=== PATIENT | male | born 1970 | race Caucasian/White ===

== ENCOUNTER 2021-04-18 17:10 | Inpatient (IN) | payer MEDICARE, OTHER ==
[~2021-04-18] VITALS: Ht 185.4 cm; Wt 70.3 kg
[2021-04-18 18:20] LABS: BASOPHILS ABSOLUTE AUTO 0.04 K/mm3 (0.00-0.23); BASOPHILS PERCENT AUTO 0 % (0-2); EOSINOPHILS PERCENT AUTO 0 % (0-6); Hematocrit 33.5 % (37.0-53.0); Hemoglobin 11.8 g/dL (13.5-17.5); IMMATURE GRAN ABSOLUTE AUTO 0.21 K/mm3 (0.00-0.10); IMMATURE GRAN PERCENT AUTO 1 % (0-1); LYMPHOCYTES ABSOLUTE AUTO 1.32 K/mm3 (0.84-5.20); LYMPHOCYTES PERCENT AUTO 8 % (21-46); MONOCYTES PERCENT AUTO 5 % (4-13); Mean Corpuscular HGB 32.6 pg (26.0-34.0); Mean Corpuscular HGB Conc 35.2 g/dL (31.5-36.5); Mean Corpuscular Volume 93 fL (80-100); Mean Platelet Volume 10.5 fL (9.1-12.4); NEUTROPHILS ABSOLUTE AUTO 15.02 K/mm3 (1.96-9.15); NEUTROPHILS PERCENT AUTO 86 % (41-73); Platelet Count 302 K/mm3 (150-400); RDW Coefficient Variation 12.5 % (11.7-14.2); RDW Standard Deviation 42.5 fL (35.1-46.3); Red Blood Cell Count 3.62 M/mm3 (4.30-5.90); White Blood Cell Count 17.49 K/mm3 (4.00-11.30)
[2021-04-18 18:40] LABS: Albumin, Blood 4.8 g/dL (3.4-5.0); Bilirubin, Total 1.3 mg/dL (0.1-1.0); Bun/Creatinine Ratio 26.5 (12.0-20.0); Calcium, Blood 9.8 mg/dL (8.5-10.1); Creatinine, Blood 1.51 mg/dL (0.60-1.20); Globulin, Blood 4.6 g/dL (2.2-4.0); Total Protein, Blood 9.4 g/dL (6.4-8.2)
[2021-04-18] MEDS ORDERED: HUMALOG100 UNIT/1 UD (21:52)
[2021-04-18] MEDS ORDERED: LISI20 PO (22:00)
[2021-04-18] MEDS ORDERED: GABA300 PO (22:00)
[2021-04-18] MEDS ORDERED: ATOR40TA PO (22:01)
[2021-04-19 00:02] LABS: SARS-Cov-2 (COVID-19) PCR, MMC NEGATIVE (NEGATIVE)
--- NOTE | 2021-04-19 05:48 | NUR ---
END OF SHIFT REPORT: Pt still complaining of nausea. Heis coughuing and vommiting, stating that the cough are dry-heaves. Pt's BP and pulse elevated. notified. pt put on tele monitor. Atenelol given. phenegan given also per pt request stating that reglan and zofran "do not touch" his nausea. pt's BP still elevated at 157/98 and pulse 106 at 0530 likely from pt still dry heaving at the time vitals were taken.
[2021-04-19 06:05] LABS: Anion Gap 19 mmol/L (6-16); Blood Urea Nitrogen 33 mg/dL (8-24); Bun/Creatinine Ratio 26.4 (12.0-20.0); CO2, Blood 13 mmol/L (21-32); Calcium, Blood 8.4 mg/dL (8.5-10.1); Chloride, Blood 98 mmol/L (98-108); Creatinine, Blood 1.25 mg/dL (0.60-1.20); Glomerular Filtration Rate >60 (60-); Glucose, Blood 362 mg/dL (70-99); Potassium, Blood 3.9 mmol/L (3.5-5.5); Sodium, Blood 130 mmol/L (136-145)
[2021-04-19 16:20] LABS: BASOPHILS ABSOLUTE AUTO 0.02 K/mm3 (0.00-0.23); BASOPHILS PERCENT AUTO 0 % (0-2); EOSINOPHILS PERCENT AUTO 0 % (0-6); Hematocrit 26.8 % (37.0-53.0); Hemoglobin 9.2 g/dL (13.5-17.5); IMMATURE GRAN ABSOLUTE AUTO 0.07 K/mm3 (0.00-0.10); IMMATURE GRAN PERCENT AUTO 1 % (0-1); LYMPHOCYTES ABSOLUTE AUTO 1.06 K/mm3 (0.84-5.20); LYMPHOCYTES PERCENT AUTO 8 % (21-46); MONOCYTES ABSOLUTE AUTO 0.81 K/mm3 (0.16-1.47); MONOCYTES PERCENT AUTO 6 % (4-13); Mean Corpuscular HGB 32.1 pg (26.0-34.0); Mean Corpuscular HGB Conc 34.3 g/dL (31.5-36.5); Mean Corpuscular Volume 93 fL (80-100); Mean Platelet Volume 10.4 fL (9.1-12.4); NEUTROPHILS ABSOLUTE AUTO 10.88 K/mm3 (1.96-9.15); NEUTROPHILS PERCENT AUTO 85 % (41-73); Platelet Count 194 K/mm3 (150-400); RDW Coefficient Variation 12.3 % (11.7-14.2); RDW Standard Deviation 42.5 fL (35.1-46.3); Red Blood Cell Count 2.87 M/mm3 (4.30-5.90); White Blood Cell Count 12.84 K/mm3 (4.00-11.30)
[2021-04-19 16:42] LABS: Albumin, Blood 3.2 g/dL (3.4-5.0); Anion Gap 10 mmol/L (6-16); Blood Urea Nitrogen 24 mg/dL (8-24); CO2, Blood 19 mmol/L (21-32); Chloride, Blood 107 mmol/L (98-108); Creatinine, Blood 1.09 mg/dL (0.60-1.20); Glomerular Filtration Rate >60 (60-); Glucose, Blood 214 mg/dL (70-99); Phosphorus, Blood 2.3 mg/dL (2.5-4.9); Potassium, Blood 3.5 mmol/L (3.5-5.5); Sodium, Blood 136 mmol/L (136-145)
--- NOTE | 2021-04-19 16:53 | NUR ---
SHIFT SUMMARY PATIENT MEDICATED SEVERAL TIMES FOR NAUSEA THIS SHIFT. PATIENT MEDICATED X1 FOR ABDOMINAL PAIN. NEW ORDERS FOR 2 LITER BOLUS, Q4 REGULAR INSULIN AND Q4 CBG'S. UP SBA TO BSC, USES URINAL AT BEDSIDE. POOR PO INTAKE.
[2021-04-20 03:17] LABS: Source, Urine Clean Catch
[2021-04-20 03:19] LABS: Bilirubin, Urine Neg (Neg); Blood, Urine 1+ (Neg); Glucose Qualitative, Urine 3+ (Neg); Ketones, Urine 3+ (Neg); Leukocyte Esterase, Urine Neg (Neg); Nitrite, Urine Neg (Neg); Protein, Urine 2+ (Neg); Urobilinogen, Urine NORM (Normal)
[2021-04-20 03:21] LABS: Appearance, Urine Clear (Clear); Color, Urine Pale Yellow (P-Yellow)
[2021-04-20 03:37] LABS: Bacteria Not Seen /hpf; Red Blood Cells, Urine 0-2 /hpf (0-2); Squamous Epithelial Cells Not Seen /hpf (Few); White Blood Cells, Urine Rare /hpf (0-5)
--- NOTE | 2021-04-20 05:12 | NUR ---
END OF SHIFT REPORT: Pt complaining of stomach scramps, nausea and vommiting. Treated with anti nausea and pain medicine and pt feels some relief. Pt states that he had a better night toning with his pain and nausea.
--- NOTE | 2021-04-20 07:14 | NUR ---
Unable to document med: 0045: As this nurse was charting pt's zofran and fentanyl, the computer blacked out and when it came back up, it was not letting this nurse into the [facility]. This nurse tried multiple times to chart the medicine but computer says that i am already in the [facility] for these meds. This nurse notified charge nurse and pharmacy. charted the med on paper charting, which was put onto pt's chart.
[2021-04-20 08:53] LABS: Magnesium, Blood 2.1 mg/dL (1.6-2.4)
[2021-04-20 09:15] LABS: Albumin, Blood 3.4 g/dL (3.4-5.0); Anion Gap 8 mmol/L (6-16); Blood Urea Nitrogen 15 mg/dL (8-24); Bun/Creatinine Ratio 15.7 (12.0-20.0); CO2, Blood 23 mmol/L (21-32); Calcium, Blood 8.4 mg/dL (8.5-10.1); Chloride, Blood 106 mmol/L (98-108); Creatinine, Blood 0.96 mg/dL (0.60-1.20); Glomerular Filtration Rate >60 (60-); Glucose, Blood 183 mg/dL (70-99); Phosphorus, Blood 1.4 mg/dL (2.5-4.9); Potassium, Blood 3.3 mmol/L (3.5-5.5); Sodium, Blood 137 mmol/L (136-145)
[2021-04-20] MEDS ORDERED: OXYC10TA19 PO (12:03)
[2021-04-20] MEDS ORDERED: SERT100 PO (12:21)
--- NOTE | 2021-04-20 17:27 | NUR ---
SHIFT SUMMARY PATIENT MEDICATED X1 FOR PAIN. PATIENT MEDICATED X1 PRN AND SCHEDULED FOR NAUSEA. PATIENT MEDICATED X1 FOR ANXIETY. PATIENT DENIES SHORTNESS OF BREATH. PATIENT ABLE TO TOLERATE MINIMAL FOOD TODAY WITHOUT EMESIS. PATIENT BP WAS 181/116. MEDICATED WITH LABETALOL 10MG PER EMAR. AFTER AN HOUR, BP WAS 183/125. MEDICATED WITH LABETALOL 10MG PER EMAR. DR. GALO CALLED. NEW ORDERS FOR LISINOPRIL 20MG PO BID AND OXYCODONE 10MG Q6 PRN. PATIENT IS PLEASANT AND COOPERATIVE WITH CARE. PATIENT IS INDEPENDENT TO THE BATHROOM. PATIENT SLEPT ON AND OFF FOR MOST OF MY SHIFT.
--- NOTE | 2021-04-21 06:21 | NUR ---
SHIFT SUMMARY PT IS A 51 Y/O MALE, ADMITTED FOR SEVERE SEPSIS. HE IS A&O X 4, ANXIOUS AT TIMES, INDEPENDENT IN THE ROOM. HE WAS MEDICATED TWICE FOR ABD PAIN AND NAUSEA WITH PRN OXYCODONE AND ZOFRAN. NO C/O SOB. VITAL SIGNS STABLE. NO ACUTE CHANGES IN PT CONDITION NOTED DURING THE NIGHT. WILL CONTINUE TO MONITOR AND TREAT PER EMAR UNTIL HAND OFF TO DAY SHIFT RN.
[2021-04-21 09:43] LABS: Albumin, Blood 3.3 g/dL (3.4-5.0); Anion Gap 9 mmol/L (6-16); Blood Urea Nitrogen 11 mg/dL (8-24); Bun/Creatinine Ratio 11.3 (12.0-20.0); CO2, Blood 23 mmol/L (21-32); Chloride, Blood 103 mmol/L (98-108); Creatinine, Blood 0.97 mg/dL (0.60-1.20); Glomerular Filtration Rate >60 (60-); Glucose, Blood 181 mg/dL (70-99); Phosphorus, Blood 1.8 mg/dL (2.5-4.9); Potassium, Blood 3.3 mmol/L (3.5-5.5); Sodium, Blood 135 mmol/L (136-145)
--- NOTE | 2021-04-21 16:37 | NUR ---
SHIFT SUMMARY PATIENT MEDICATED FOR PAIN X1, NAUSEA X1, AND ANXIETY X1. PATIENT DENIES SHORTNESS OF BREATH. PATIENT TOLERATING FOOD TODAY. ATE ABOUT HALF OF ALL MEALS. PATIENT STATED FEELING LESS NAUSEOUS TODAY. THREE RECORD REQUEST FAXED THIS MORNING, 2 OUT OF 3 HAVE SENT RECORDS. THIS AFTERNOON, PATIENT BP WAS 167/103. DR. GALO CALLED. NEW ORDERS FOR HYDRALAZINE 10MG PO TID PLACED. NOW DOSE GIVEN. RECHECK AFTER ONE HOUR WAS 192/120. LABETALOL GIVEN. PATIENT INDEPENDENT TO BATHROOM. PATIENT IS PLEASANT AND COOPERATIVE WITH CARE.
--- NOTE | 2021-04-22 07:10 | NUR ---
PATEINT SUMMARY PATIENT IS ALERT AND ORIENTED X4. BP ELEVATED MY SHIFT PRN GIVEN; VS OTHERWISE STABLE FOR PATIENT ON RA. NO COMPLAINTS OF CABALLERO, CP, OR SHORTNESS OF BREATH. PATIENT C/O NAUSEA MY SHIFT. MEDICATIONS FOR NAUSEA ND PAIN GIVEN AROUND THE CLOCK. PATIENT VERBALIZED RELIEF. PATIENT VERBALIZED BEGINING TO FEEL BETTER. ALL MEDICATIONS GIVEN AND CARES COMPLETED ORDERED ACCORDING TO NURSING JUDGEMENT. ALL UNFINISHED CARES ENDORSED TO ONCOMING RN.
[2021-04-22 08:49] LABS: Albumin, Blood 3.4 g/dL (3.4-5.0); Anion Gap 9 mmol/L (6-16); Blood Urea Nitrogen 8 mg/dL (8-24); Bun/Creatinine Ratio 8.1 (12.0-20.0); CO2, Blood 24 mmol/L (21-32); Calcium, Blood 8.3 mg/dL (8.5-10.1); Chloride, Blood 106 mmol/L (98-108); Creatinine, Blood 0.99 mg/dL (0.60-1.20); Glomerular Filtration Rate >60 (60-); Glucose, Blood 149 mg/dL (70-99); Phosphorus, Blood 3.2 mg/dL (2.5-4.9); Potassium, Blood 3.2 mmol/L (3.5-5.5); Sodium, Blood 139 mmol/L (136-145)
--- NOTE | 2021-04-22 10:59 | NUR ---
PT IS A&O, PLEASANT AND CO-OP WITH CARE. DENIED NEEDS. NO C/O. PT UP TO CHAIR AT BS INDEPENDENTLY. ABLE TO AMBULATE IN AND TO BTHRM. DR GALO IN TO SEE PT AND DISCUSS PLAN OF CARE. MEDICAL RECORDS FROM [facility] OBTAINED AND REVIEWED BY DR GALO. D/C ORDERS PLACED. IV AND TELE MX D/C'D. PT ABLE TO DRESS HIMSELF. D/C INSTRUCTIONS TO BE GIVEN AND REVIEWED WITH PT. CALL LT IN REACH.
[2021-04-22] MEDS ORDERED: HYDR10 PO (11:09)
[2021-04-22] MEDS ORDERED: REGLAN10 M2 PO (11:11)
[2021-04-22] MEDS ORDERED: PANT40 PO (11:12)
[2021-04-22] MEDS ORDERED: ONDA4ODT MM (11:12)
--- NOTE | 2021-04-22 12:43 | NUR ---
D/C INSTRUCTIONS REVIEWED WITH PT. VERBALIZED UNDERSTANDING. DENIED FURTHER NEEDS. ASSISTED OUT TO 'S CAR VIA W/C.
== END 2021-04-22 12:44 | disposition home or self-care (01) | DRG 74 ==
LOC: ER 17:10 → MEDS 17:11
PROVIDERS: Emergency Medicine Emergency Medical Services; Internal Medicine; Student in an Organized Health Care Education/Training Program; ADMIT Internal Medicine
DX: E10.43 Type 1 diabetes mellitus with diabetic autonomic (poly)neuropathy (principal); N17.9 Acute kidney failure, unspecified; K31.84 Gastroparesis; E86.0 Dehydration; E78.5 Hyperlipidemia, unspecified; E87.6 Hypokalemia; E83.39 Other disorders of phosphorus metabolism; Z20.822 Contact with and (suspected) exposure to COVID-19; K52.9 Noninfective gastroenteritis and colitis, unspecified; I10 Essential (primary) hypertension; E10.10 Type 1 diabetes mellitus with ketoacidosis without coma; Z98.890 Other specified postprocedural states; Z79.4 Long term (current) use of insulin; Z79.899 Other long term (current) drug therapy
CPT/HCPCS: 36415; 74176; 80048; 80053; 80069; 81001; 82947; 83605; 83690; 83735; 85025; 87040; 93005; 93010; 96374; 96375; 96376; 99285-25; A9270; C1751; C9113; J0696; J1650; J1815; J2060; J2270; J2405; J2550; J2765; J3010; J7030; J7060; J7120; U0004

== ENCOUNTER → 2021-08-28 | Outpatient (CLI) | payer MEDICARE, OTHER ==
[~2021-08-28] MED LIST: ATOR40TA PO; GABA300 PO; HUMALOG100 UNIT/1 UD; HYDR10 PO; LISI20 PO; ONDA4ODT MM; OXYC10TA19 PO; PANT40 PO; REGLAN10 M2 PO; SERT100 PO
== END | disposition home or self-care (01) ==
LOC: LAB SHORT 17:22
PROVIDERS: Family Medicine
DX: Z51.81 Encounter for therapeutic drug level monitoring (principal); Z79.899 Other long term (current) drug therapy
CPT/HCPCS: G0480

== ENCOUNTER 2021-10-22 22:58 | Emergency (ER) | payer MEDICARE, OTHER ==
[~2021-10-22] VITALS: Ht 185.4 cm; Wt 72.6 kg
[2021-10-23] MEDS ORDERED: PROM12.5S (00:25)
[2021-10-23 00:39] LABS: BASOPHILS ABSOLUTE AUTO 0.06 K/mm3 (0.00-0.23); BASOPHILS PERCENT AUTO 1 % (0-2); EOSINOPHILS ABSOLUTE AUTO 0.46 K/mm3 (0.00-0.68); EOSINOPHILS PERCENT AUTO 7 % (0-6); Hematocrit 29.5 % (37.0-53.0); Hemoglobin 9.9 g/dL (13.5-17.5); IMMATURE GRAN ABSOLUTE AUTO 0.01 K/mm3 (0.00-0.10); IMMATURE GRAN PERCENT AUTO 0 % (0-1); LYMPHOCYTES ABSOLUTE AUTO 1.64 K/mm3 (0.84-5.20); LYMPHOCYTES PERCENT AUTO 26 % (21-46); MONOCYTES ABSOLUTE AUTO 0.57 K/mm3 (0.16-1.47); MONOCYTES PERCENT AUTO 9 % (4-13); Mean Corpuscular HGB 31.9 pg (26.0-34.0); Mean Corpuscular HGB Conc 33.6 g/dL (31.5-36.5); Mean Corpuscular Volume 95 fL (80-100); Mean Platelet Volume 9.6 fL (9.1-12.4); NEUTROPHILS ABSOLUTE AUTO 3.57 K/mm3 (1.96-9.15); NEUTROPHILS PERCENT AUTO 57 % (41-73); Platelet Count 226 K/mm3 (150-400); RDW Coefficient Variation 12.7 % (11.7-14.2); RDW Standard Deviation 44.2 fL (35.1-46.3); White Blood Cell Count 6.31 K/mm3 (4.00-11.30)
[2021-10-23 00:57] LABS: Albumin, Blood 3.5 g/dL (3.4-5.0); Bilirubin, Total 0.3 mg/dL (0.1-1.0); Bun/Creatinine Ratio 19.2 (12.0-20.0); Calcium, Blood 8.5 mg/dL (8.5-10.1); Creatinine, Blood 1.3 mg/dL (0.60-1.20); Globulin, Blood 3.6 g/dL (2.2-4.0); Potassium, Blood 4.6 mmol/L (3.5-5.5); Total Protein, Blood 7.1 g/dL (6.4-8.2)
[2021-10-23] MEDS ORDERED: Cleocin HCl150 MG PO (03:33)
== END 2021-10-23 04:10 | disposition home or self-care (01) ==
LOC: ER 22:58
PROVIDERS: Student in an Organized Health Care Education/Training Program
DX: L03.031 Cellulitis of right toe (principal); E10.40 Type 1 diabetes mellitus with diabetic neuropathy, unspecified; I10 Essential (primary) hypertension; Z88.5 Allergy status to narcotic agent; Z79.899 Other long term (current) drug therapy; Z79.4 Long term (current) use of insulin
CPT/HCPCS: 73630; 80053; 85025; 99283-25; A9270

== ENCOUNTER 2021-11-14 11:28 | Inpatient (IN) | payer MEDICARE, OTHER ==
[~2021-11-14] VITALS: Ht 185.4 cm; Wt 68.5 kg
[~2021-11-14 11:28] MED LIST changes: +Cleocin HCl150 MG PO; -GABA300 PO; +GABA600 PO; -HUMALOG100 UNIT/1 UD; +PHENERGAN25 MG PR; +[UNRECOGNIZED DRUG - OTHER] UD
[2021-11-14 12:06] LABS: BASOPHILS ABSOLUTE AUTO 0.06 K/mm3 (0.00-0.23); BASOPHILS PERCENT AUTO 1 % (0-2); EOSINOPHILS ABSOLUTE AUTO 0.01 K/mm3 (0.00-0.68); EOSINOPHILS PERCENT AUTO 0 % (0-6); Hemoglobin 12.2 g/dL (13.5-17.5); IMMATURE GRAN ABSOLUTE AUTO 0.05 K/mm3 (0.00-0.10); IMMATURE GRAN PERCENT AUTO 0 % (0-1); LYMPHOCYTES ABSOLUTE AUTO 0.76 K/mm3 (0.84-5.20); LYMPHOCYTES PERCENT AUTO 6 % (21-46); MONOCYTES ABSOLUTE AUTO 0.67 K/mm3 (0.16-1.47); MONOCYTES PERCENT AUTO 5 % (4-13); Mean Corpuscular HGB 31.4 pg (26.0-34.0); Mean Corpuscular HGB Conc 33.9 g/dL (31.5-36.5); Mean Corpuscular Volume 93 fL (80-100); NEUTROPHILS ABSOLUTE AUTO 11.55 K/mm3 (1.96-9.15); NEUTROPHILS PERCENT AUTO 88 % (41-73); Platelet Count 297 K/mm3 (150-400); RDW Coefficient Variation 12.4 % (11.7-14.2); RDW Standard Deviation 41.9 fL (35.1-46.3); Red Blood Cell Count 3.89 M/mm3 (4.30-5.90)
[2021-11-14 12:20] LABS: Alanine Aminotransfer (ALT/SGP 23 U/L (12-78); Albumin, Blood 4.5 g/dL (3.4-5.0); Alk Phos 69 U/L (50-136); Anion Gap 12 mmol/L (6-16); Aspartate Aminotrans (AST/SGOT 19 U/L (12-37); Bilirubin, Total 1.3 mg/dL (0.1-1.0); Blood Urea Nitrogen 19 mg/dL (8-24); Bun/Creatinine Ratio 18.6 (12.0-20.0); CO2, Blood 20 mmol/L (21-32); Calcium, Blood 10.2 mg/dL (8.5-10.1); Chloride, Blood 107 mmol/L (98-108); Creatinine, Blood 1.02 mg/dL (0.60-1.20); Globulin, Blood 4.6 g/dL (2.2-4.0); Glomerular Filtration Rate >60 (60-); Glucose, Blood 283 mg/dL (70-99); Potassium, Blood 3.8 mmol/L (3.5-5.5); Sodium, Blood 139 mmol/L (136-145); Total Protein, Blood 9.1 g/dL (6.4-8.2)
[2021-11-14] MEDS ORDERED: LISI20 PO (12:43)
[2021-11-14 12:59] LABS: Base Excess Venous -1.5 mmol/L; Bicarbonate Venous 24.5 mmol/L (24.0-30.0); PCO2 Venous 20.4 mmHg (38-42)
[2021-11-14 17:57] LABS: Anion Gap 9 mmol/L (6-16); Beta-hydroxybutyrate 15.8 mg/dL (0.2-2.8); Blood Urea Nitrogen 19 mg/dL (8-24); Bun/Creatinine Ratio 21.6 (12.0-20.0); CO2, Blood 21 mmol/L (21-32); Chloride, Blood 107 mmol/L (98-108); Creatinine, Blood 0.88 mg/dL (0.60-1.20); Glomerular Filtration Rate >60 (60-); Glucose, Blood 238 mg/dL (70-99); Potassium, Blood 3.7 mmol/L (3.5-5.5); Sodium, Blood 137 mmol/L (136-145)
[2021-11-14 22:27] LABS: Influenza A, PCR NEGATIVE (NEGATIVE); Influenza B, PCR NEGATIVE (NEGATIVE); Resp Syncytial Virus, PCR NEGATIVE (NEGATIVE); SARS-Cov-2 (COVID-19) PCR, MMC NEGATIVE (NEGATIVE)
[2021-11-15 03:51] LABS: BASOPHILS ABSOLUTE AUTO 0.02 K/mm3 (0.00-0.23); BASOPHILS PERCENT AUTO 0 % (0-2); EOSINOPHILS PERCENT AUTO 0 % (0-6); Hematocrit 32.9 % (37.0-53.0); Hemoglobin 11.3 g/dL (13.5-17.5); IMMATURE GRAN ABSOLUTE AUTO 0.06 K/mm3 (0.00-0.10); IMMATURE GRAN PERCENT AUTO 0 % (0-1); LYMPHOCYTES ABSOLUTE AUTO 1.03 K/mm3 (0.84-5.20); LYMPHOCYTES PERCENT AUTO 7 % (21-46); MONOCYTES ABSOLUTE AUTO 0.77 K/mm3 (0.16-1.47); MONOCYTES PERCENT AUTO 5 % (4-13); Mean Corpuscular HGB 31.6 pg (26.0-34.0); Mean Corpuscular HGB Conc 34.3 g/dL (31.5-36.5); Mean Corpuscular Volume 92 fL (80-100); Mean Platelet Volume 9.7 fL (9.1-12.4); NEUTROPHILS ABSOLUTE AUTO 13.46 K/mm3 (1.96-9.15); NEUTROPHILS PERCENT AUTO 88 % (41-73); Platelet Count 267 K/mm3 (150-400); RDW Coefficient Variation 12.6 % (11.7-14.2); RDW Standard Deviation 42.6 fL (35.1-46.3); Red Blood Cell Count 3.58 M/mm3 (4.30-5.90); White Blood Cell Count 15.34 K/mm3 (4.00-11.30)
[2021-11-15 04:07] LABS: Albumin, Blood 4.1 g/dL (3.4-5.0); Anion Gap 16 mmol/L (6-16); Blood Urea Nitrogen 20 mg/dL (8-24); Bun/Creatinine Ratio 20.3 (12.0-20.0); CO2, Blood 15 mmol/L (21-32); Calcium, Blood 8.9 mg/dL (8.5-10.1); Chloride, Blood 102 mmol/L (98-108); Creatinine, Blood 0.99 mg/dL (0.60-1.20); Glomerular Filtration Rate >60 (60-); Glucose, Blood 211 mg/dL (70-99); Phosphorus, Blood 2.4 mg/dL (2.5-4.9); Potassium, Blood 3.4 mmol/L (3.5-5.5); Sodium, Blood 133 mmol/L (136-145)
[2021-11-16 10:38] LABS: BASOPHILS ABSOLUTE AUTO 0.02 K/mm3 (0.00-0.23); BASOPHILS PERCENT AUTO 0 % (0-2); EOSINOPHILS PERCENT AUTO 0 % (0-6); Hematocrit 29.6 % (37.0-53.0); Hemoglobin 10.2 g/dL (13.5-17.5); IMMATURE GRAN ABSOLUTE AUTO 0.09 K/mm3 (0.00-0.10); IMMATURE GRAN PERCENT AUTO 1 % (0-1); LYMPHOCYTES ABSOLUTE AUTO 1.06 K/mm3 (0.84-5.20); LYMPHOCYTES PERCENT AUTO 6 % (21-46); MONOCYTES ABSOLUTE AUTO 1.07 K/mm3 (0.16-1.47); MONOCYTES PERCENT AUTO 6 % (4-13); Mean Corpuscular HGB 31.6 pg (26.0-34.0); Mean Corpuscular HGB Conc 34.5 g/dL (31.5-36.5); Mean Corpuscular Volume 92 fL (80-100); Mean Platelet Volume 10.4 fL (9.1-12.4); NEUTROPHILS ABSOLUTE AUTO 14.36 K/mm3 (1.96-9.15); NEUTROPHILS PERCENT AUTO 87 % (41-73); Platelet Count 213 K/mm3 (150-400); RDW Coefficient Variation 12.8 % (11.7-14.2); RDW Standard Deviation 42.7 fL (35.1-46.3); Red Blood Cell Count 3.23 M/mm3 (4.30-5.90)
[2021-11-16 10:47] LABS: Anion Gap 13 mmol/L (6-16); Blood Urea Nitrogen 21 mg/dL (8-24); CO2, Blood 19 mmol/L (21-32); Calcium, Blood 8.1 mg/dL (8.5-10.1); Chloride, Blood 104 mmol/L (98-108); Creatinine, Blood 0.96 mg/dL (0.60-1.20); Glomerular Filtration Rate >60 (60-); Glucose, Blood 205 mg/dL (70-99); Potassium, Blood 4.2 mmol/L (3.5-5.5); Sodium, Blood 136 mmol/L (136-145)
[2021-11-17 06:07] LABS: BASOPHILS ABSOLUTE AUTO 0.01 K/mm3 (0.00-0.23); BASOPHILS PERCENT AUTO 0 % (0-2); EOSINOPHILS PERCENT AUTO 0 % (0-6); Hematocrit 29.5 % (37.0-53.0); Hemoglobin 10.2 g/dL (13.5-17.5); IMMATURE GRAN ABSOLUTE AUTO 0.13 K/mm3 (0.00-0.10); IMMATURE GRAN PERCENT AUTO 1 % (0-1); LYMPHOCYTES ABSOLUTE AUTO 0.48 K/mm3 (0.84-5.20); LYMPHOCYTES PERCENT AUTO 3 % (21-46); MONOCYTES ABSOLUTE AUTO 0.72 K/mm3 (0.16-1.47); MONOCYTES PERCENT AUTO 5 % (4-13); Mean Corpuscular HGB Conc 34.6 g/dL (31.5-36.5); Mean Corpuscular Volume 93 fL (80-100); Mean Platelet Volume 10.4 fL (9.1-12.4); NEUTROPHILS ABSOLUTE AUTO 12.72 K/mm3 (1.96-9.15); NEUTROPHILS PERCENT AUTO 91 % (41-73); Platelet Count 194 K/mm3 (150-400); RDW Coefficient Variation 12.7 % (11.7-14.2); RDW Standard Deviation 43.3 fL (35.1-46.3); Red Blood Cell Count 3.19 M/mm3 (4.30-5.90); White Blood Cell Count 14.06 K/mm3 (4.00-11.30)
[2021-11-17 06:33] LABS: Anion Gap 16 mmol/L (6-16); Blood Urea Nitrogen 23 mg/dL (8-24); Bun/Creatinine Ratio 23.1 (12.0-20.0); CO2, Blood 15 mmol/L (21-32); Calcium, Blood 8.5 mg/dL (8.5-10.1); Chloride, Blood 105 mmol/L (98-108); Glomerular Filtration Rate >60 (60-); Glucose, Blood 394 mg/dL (70-99); Sodium, Blood 136 mmol/L (136-145)
[2021-11-17 10:04] LABS: BASOPHILS ABSOLUTE AUTO 0.01 K/mm3 (0.00-0.23); BASOPHILS PERCENT AUTO 0 % (0-2); EOSINOPHILS PERCENT AUTO 0 % (0-6); Hematocrit 27.4 % (37.0-53.0); Hemoglobin 9.4 g/dL (13.5-17.5); IMMATURE GRAN ABSOLUTE AUTO 0.05 K/mm3 (0.00-0.10); IMMATURE GRAN PERCENT AUTO 0 % (0-1); LYMPHOCYTES PERCENT AUTO 4 % (21-46); MONOCYTES PERCENT AUTO 7 % (4-13); Mean Corpuscular HGB 31.8 pg (26.0-34.0); Mean Corpuscular HGB Conc 34.3 g/dL (31.5-36.5); Mean Corpuscular Volume 93 fL (80-100); Mean Platelet Volume 10.3 fL (9.1-12.4); NEUTROPHILS ABSOLUTE AUTO 10.47 K/mm3 (1.96-9.15); NEUTROPHILS PERCENT AUTO 89 % (41-73); Platelet Count 191 K/mm3 (150-400); RDW Coefficient Variation 12.6 % (11.7-14.2); RDW Standard Deviation 42.8 fL (35.1-46.3); Red Blood Cell Count 2.96 M/mm3 (4.30-5.90); White Blood Cell Count 11.83 K/mm3 (4.00-11.30)
[2021-11-17 10:27] LABS: Anion Gap 10 mmol/L (6-16); Blood Urea Nitrogen 22 mg/dL (8-24); CO2, Blood 22 mmol/L (21-32); Calcium, Blood 8.3 mg/dL (8.5-10.1); Chloride, Blood 108 mmol/L (98-108); Creatinine, Blood 0.92 mg/dL (0.60-1.20); Glomerular Filtration Rate >60 (60-); Glucose, Blood 227 mg/dL (70-99); Sodium, Blood 140 mmol/L (136-145)
[2021-11-17 12:37] LABS: Campylobacter Sp Not Detected (NOT DETECT)
[2021-11-17 12:38] LABS: Adenovirus F 40/41 Not Detected (NOT DETECT); Astrovirus Not Detected (NOT DETECT); Cryptosporidium Not Detected (NOT DETECT); Cyclospora Cayetanensis Not Detected (NOT DETECT); E. Coli O157 Not Detected (NOT DETECT); Entamoeba Histolytica Not Detected (NOT DETECT); Enteroaggregative E. coli-EAEC Not Detected (NOT DETECT); Enteropathogenic E. coli-EPEC Not Detected (NOT DETECT); Enterotoxigenic E. coli-ETEC Not Detected (NOT DETECT); Giardia Lamblia Not Detected (NOT DETECT); Norovirus GI/GII Not Detected (NOT DETECT); Plesiomonas Shigelloides Not Detected (NOT DETECT); Rotavirus A Not Detected (NOT DETECT); Salmonella Sp Not Detected (NOT DETECT); Sapovirus Not Detected (NOT DETECT); Shiga Toxin-prod E. coli-STEC Not Detected (NOT DETECT); Shigella/Enteroin E. coli-EIEC Not Detected (NOT DETECT); Vibrio Cholerae Not Detected (NOT DETECT); Vibrio Sp Not Detected (NOT DETECT); Yersinia Enterocolitica Not Detected (NOT DETECT)
[2021-11-17 18:00] LABS: Source, Urine Clean Catch
[2021-11-17 18:08] LABS: Appearance, Urine Clear (Clear); Bilirubin, Urine Neg (Neg); Blood, Urine 2+ (Neg); Color, Urine Yellow (P-Yellow); Glucose Qualitative, Urine 4+ (Neg); Ketones, Urine 4+ (Neg); Leukocyte Esterase, Urine Neg (Neg); Nitrite, Urine Neg (Neg); Protein, Urine 3+ (Neg); Urobilinogen, Urine NORM (Normal)
[2021-11-17 18:28] LABS: White Blood Cells, Urine 0-2 /hpf (0-5)
[2021-11-17 18:29] LABS: Bacteria Rare /hpf; Granular Casts 0-2 /lpf (0); Squamous Epithelial Cells Rare /hpf (Few)
[2021-11-18 05:54] LABS: BASOPHILS ABSOLUTE AUTO 0.01 K/mm3 (0.00-0.23); BASOPHILS PERCENT AUTO 0 % (0-2); EOSINOPHILS ABSOLUTE AUTO 0.03 K/mm3 (0.00-0.68); EOSINOPHILS PERCENT AUTO 0 % (0-6); Hematocrit 27.8 % (37.0-53.0); Hemoglobin 9.5 g/dL (13.5-17.5); IMMATURE GRAN ABSOLUTE AUTO 0.04 K/mm3 (0.00-0.10); IMMATURE GRAN PERCENT AUTO 0 % (0-1); LYMPHOCYTES PERCENT AUTO 10 % (21-46); MONOCYTES ABSOLUTE AUTO 0.87 K/mm3 (0.16-1.47); MONOCYTES PERCENT AUTO 8 % (4-13); Mean Corpuscular HGB 31.6 pg (26.0-34.0); Mean Corpuscular HGB Conc 34.2 g/dL (31.5-36.5); Mean Corpuscular Volume 92 fL (80-100); Mean Platelet Volume 10.7 fL (9.1-12.4); NEUTROPHILS ABSOLUTE AUTO 9.18 K/mm3 (1.96-9.15); NEUTROPHILS PERCENT AUTO 82 % (41-73); Platelet Count 204 K/mm3 (150-400); RDW Coefficient Variation 12.4 % (11.7-14.2); RDW Standard Deviation 42.4 fL (35.1-46.3); Red Blood Cell Count 3.01 M/mm3 (4.30-5.90); White Blood Cell Count 11.23 K/mm3 (4.00-11.30)
[2021-11-18 06:11] LABS: Anion Gap 8 mmol/L (6-16); Blood Urea Nitrogen 16 mg/dL (8-24); Bun/Creatinine Ratio 16.8 (12.0-20.0); CO2, Blood 23 mmol/L (21-32); Calcium, Blood 8.1 mg/dL (8.5-10.1); Chloride, Blood 104 mmol/L (98-108); Creatinine, Blood 0.95 mg/dL (0.60-1.20); Glomerular Filtration Rate >60 (60-); Glucose, Blood 241 mg/dL (70-99); Potassium, Blood 3.2 mmol/L (3.5-5.5); Sodium, Blood 135 mmol/L (136-145)
[2021-11-18 17:31] LABS: Vancomycin, Trough 20.1 ug/mL (5.0-10.0)
[2021-11-19 04:49] LABS: BASOPHILS ABSOLUTE AUTO 0.02 K/mm3 (0.00-0.23); BASOPHILS PERCENT AUTO 0 % (0-2); EOSINOPHILS PERCENT AUTO 0 % (0-6); Hematocrit 26.9 % (37.0-53.0); Hemoglobin 9.4 g/dL (13.5-17.5); IMMATURE GRAN ABSOLUTE AUTO 0.04 K/mm3 (0.00-0.10); IMMATURE GRAN PERCENT AUTO 0 % (0-1); LYMPHOCYTES ABSOLUTE AUTO 1.13 K/mm3 (0.84-5.20); LYMPHOCYTES PERCENT AUTO 9 % (21-46); MONOCYTES ABSOLUTE AUTO 1.24 K/mm3 (0.16-1.47); MONOCYTES PERCENT AUTO 10 % (4-13); Mean Corpuscular HGB 31.4 pg (26.0-34.0); Mean Corpuscular HGB Conc 34.9 g/dL (31.5-36.5); Mean Corpuscular Volume 90 fL (80-100); Mean Platelet Volume 10.5 fL (9.1-12.4); NEUTROPHILS ABSOLUTE AUTO 9.91 K/mm3 (1.96-9.15); NEUTROPHILS PERCENT AUTO 80 % (41-73); Platelet Count 199 K/mm3 (150-400); RDW Coefficient Variation 11.9 % (11.7-14.2); RDW Standard Deviation 39.6 fL (35.1-46.3); Red Blood Cell Count 2.99 M/mm3 (4.30-5.90); White Blood Cell Count 12.34 K/mm3 (4.00-11.30)
[2021-11-19 05:13] LABS: Anion Gap 15 mmol/L (6-16); Blood Urea Nitrogen 12 mg/dL (8-24); Bun/Creatinine Ratio 13.1 (12.0-20.0); CO2, Blood 19 mmol/L (21-32); Calcium, Blood 8.3 mg/dL (8.5-10.1); Chloride, Blood 100 mmol/L (98-108); Creatinine, Blood 0.92 mg/dL (0.60-1.20); Glomerular Filtration Rate >60 (60-); Glucose, Blood 250 mg/dL (70-99); Magnesium, Blood 1.4 mg/dL (1.6-2.4); Potassium, Blood 2.9 mmol/L (3.5-5.5); Sodium, Blood 134 mmol/L (136-145)
[2021-11-20 06:29] LABS: BASOPHILS ABSOLUTE AUTO 0.01 K/mm3 (0.00-0.23); BASOPHILS PERCENT AUTO 0 % (0-2); EOSINOPHILS ABSOLUTE AUTO 0.09 K/mm3 (0.00-0.68); EOSINOPHILS PERCENT AUTO 1 % (0-6); Hematocrit 24.8 % (37.0-53.0); Hemoglobin 8.5 g/dL (13.5-17.5); IMMATURE GRAN ABSOLUTE AUTO 0.04 K/mm3 (0.00-0.10); IMMATURE GRAN PERCENT AUTO 1 % (0-1); LYMPHOCYTES ABSOLUTE AUTO 0.82 K/mm3 (0.84-5.20); LYMPHOCYTES PERCENT AUTO 10 % (21-46); MONOCYTES ABSOLUTE AUTO 0.75 K/mm3 (0.16-1.47); MONOCYTES PERCENT AUTO 10 % (4-13); Mean Corpuscular HGB 31.5 pg (26.0-34.0); Mean Corpuscular HGB Conc 34.3 g/dL (31.5-36.5); Mean Corpuscular Volume 92 fL (80-100); Mean Platelet Volume 10.2 fL (9.1-12.4); NEUTROPHILS PERCENT AUTO 78 % (41-73); Platelet Count 208 K/mm3 (150-400); RDW Coefficient Variation 12.4 % (11.7-14.2); RDW Standard Deviation 41.7 fL (35.1-46.3); White Blood Cell Count 7.91 K/mm3 (4.00-11.30)
[2021-11-20 06:48] LABS: Anion Gap 6 mmol/L (6-16); Blood Urea Nitrogen 10 mg/dL (8-24); Bun/Creatinine Ratio 11.9 (12.0-20.0); CO2, Blood 26 mmol/L (21-32); Calcium, Blood 7.8 mg/dL (8.5-10.1); Chloride, Blood 105 mmol/L (98-108); Creatinine, Blood 0.84 mg/dL (0.60-1.20); Glomerular Filtration Rate >60 (60-); Glucose, Blood 238 mg/dL (70-99); Potassium, Blood 2.9 mmol/L (3.5-5.5); Sodium, Blood 137 mmol/L (136-145)
[2021-11-21 05:33] LABS: BASOPHILS ABSOLUTE AUTO 0.01 K/mm3 (0.00-0.23); BASOPHILS PERCENT AUTO 0 % (0-2); EOSINOPHILS ABSOLUTE AUTO 0.16 K/mm3 (0.00-0.68); EOSINOPHILS PERCENT AUTO 2 % (0-6); Hematocrit 24.5 % (37.0-53.0); Hemoglobin 8.4 g/dL (13.5-17.5); IMMATURE GRAN ABSOLUTE AUTO 0.03 K/mm3 (0.00-0.10); IMMATURE GRAN PERCENT AUTO 0 % (0-1); LYMPHOCYTES ABSOLUTE AUTO 1.13 K/mm3 (0.84-5.20); LYMPHOCYTES PERCENT AUTO 15 % (21-46); MONOCYTES ABSOLUTE AUTO 0.79 K/mm3 (0.16-1.47); MONOCYTES PERCENT AUTO 10 % (4-13); Mean Corpuscular HGB 31.3 pg (26.0-34.0); Mean Corpuscular HGB Conc 34.3 g/dL (31.5-36.5); Mean Corpuscular Volume 91 fL (80-100); Mean Platelet Volume 9.7 fL (9.1-12.4); NEUTROPHILS ABSOLUTE AUTO 5.67 K/mm3 (1.96-9.15); NEUTROPHILS PERCENT AUTO 73 % (41-73); Platelet Count 235 K/mm3 (150-400); RDW Coefficient Variation 12.2 % (11.7-14.2); RDW Standard Deviation 41.1 fL (35.1-46.3); Red Blood Cell Count 2.68 M/mm3 (4.30-5.90); White Blood Cell Count 7.79 K/mm3 (4.00-11.30)
[2021-11-21 05:59] LABS: Anion Gap 7 mmol/L (6-16); Blood Urea Nitrogen 7 mg/dL (8-24); Bun/Creatinine Ratio 8.8 (12.0-20.0); CO2, Blood 25 mmol/L (21-32); Calcium, Blood 8.3 mg/dL (8.5-10.1); Chloride, Blood 105 mmol/L (98-108); Creatinine, Blood 0.79 mg/dL (0.60-1.20); Glomerular Filtration Rate >60 (60-); Glucose, Blood 161 mg/dL (70-99); Potassium, Blood 2.8 mmol/L (3.5-5.5); Sodium, Blood 137 mmol/L (136-145)
[2021-11-21 11:45] LABS: Anion Gap 12 mmol/L (6-16); Blood Urea Nitrogen 9 mg/dL (8-24); Bun/Creatinine Ratio 10.8 (12.0-20.0); CO2, Blood 22 mmol/L (21-32); Calcium, Blood 8.7 mg/dL (8.5-10.1); Chloride, Blood 102 mmol/L (98-108); Creatinine, Blood 0.84 mg/dL (0.60-1.20); Glomerular Filtration Rate >60 (60-); Glucose, Blood 197 mg/dL (70-99); Potassium, Blood 3.1 mmol/L (3.5-5.5); Sodium, Blood 136 mmol/L (136-145)
[2021-11-21] MEDS ORDERED: LISI20 PO (13:33)
[2021-11-21] MEDS ORDERED: Klor-Con-Ef 2525 MEQ PO (14:31)
== END 2021-11-21 17:23 | disposition home or self-care (01) | DRG 74 ==
LOC: ER 11:28 → MEDS 21:19 → ER 21:35 → MEDS 21:35
PROVIDERS: Emergency Medicine; Family Medicine; Internal Medicine; Internal Medicine Gastroenterology; Pharmacist; ADMIT Family Medicine
PROC: 0DBE8ZX Excision of Large Intestine, Via Natural or Artificial Opening Endoscopic, Diagnostic (ICD-10-PCS; principal; 2021-11-19 10:00)
PROC: 0DB98ZX Excision of Duodenum, Via Natural or Artificial Opening Endoscopic, Diagnostic (ICD-10-PCS; 2021-11-20)
PROC: 0DB88ZX Excision of Small Intestine, Via Natural or Artificial Opening Endoscopic, Diagnostic (ICD-10-PCS; 2021-11-20)
PROC: 0DB68ZX Excision of Stomach, Via Natural or Artificial Opening Endoscopic, Diagnostic (ICD-10-PCS; 2021-11-20)
DX: E10.43 Type 1 diabetes mellitus with diabetic autonomic (poly)neuropathy (principal); E87.3 Alkalosis; E87.2 Acidosis; Z20.822 Contact with and (suspected) exposure to COVID-19; E87.6 Hypokalemia; E88.89 Other specified metabolic disorders; K31.84 Gastroparesis; E10.42 Type 1 diabetes mellitus with diabetic polyneuropathy; I10 Essential (primary) hypertension; D53.9 Nutritional anemia, unspecified; E78.5 Hyperlipidemia, unspecified; F32.A Depression, unspecified; Z88.5 Allergy status to narcotic agent; Z88.8 Allergy status to other drugs, medicaments and biological substances; Z79.4 Long term (current) use of insulin; Z79.899 Other long term (current) drug therapy; Z98.890 Other specified postprocedural states
CPT/HCPCS: 0241U; 36415; 71046; 74160; 80048; 80053; 80069; 80202; 81001; 82010; 82803; 82947; 83605; 83690; 83735; 83993; 84145; 84484; 85025; 85651; 86141; 87040; 87086; 87507; 88305; 88342; 93005; 93010; 96374; 96375; 96376; 99285-25; A9270; C1751; C9113; J0360; J0692; J0696; J0780; J1170; J1200; J1650; J1790; J1815; J2250; J2405; J2550; J2704; J3370; J3480; J7030; J7042; J7050; J7120; Q9967

== ENCOUNTER 2021-11-23 11:15 | Inpatient (IN) | payer MEDICARE, OTHER ==
[~2021-11-23] VITALS: Ht 185.4 cm; Wt 70.7 kg
[~2021-11-23 11:15] MED LIST changes: +Klor-Con-Ef 2525 MEQ PO
[2021-11-23 12:13] LABS: BASOPHILS ABSOLUTE AUTO 0.03 K/mm3 (0.00-0.23); BASOPHILS PERCENT AUTO 0 % (0-2); EOSINOPHILS ABSOLUTE AUTO 0.05 K/mm3 (0.00-0.68); EOSINOPHILS PERCENT AUTO 0 % (0-6); Hematocrit 26.8 % (37.0-53.0); Hemoglobin 9.3 g/dL (13.5-17.5); IMMATURE GRAN ABSOLUTE AUTO 0.05 K/mm3 (0.00-0.10); IMMATURE GRAN PERCENT AUTO 0 % (0-1); LYMPHOCYTES ABSOLUTE AUTO 0.99 K/mm3 (0.84-5.20); LYMPHOCYTES PERCENT AUTO 8 % (21-46); MONOCYTES ABSOLUTE AUTO 0.57 K/mm3 (0.16-1.47); MONOCYTES PERCENT AUTO 5 % (4-13); Mean Corpuscular HGB 31.4 pg (26.0-34.0); Mean Corpuscular HGB Conc 34.7 g/dL (31.5-36.5); Mean Corpuscular Volume 91 fL (80-100); Mean Platelet Volume 9.3 fL (9.1-12.4); NEUTROPHILS ABSOLUTE AUTO 10.31 K/mm3 (1.96-9.15); NEUTROPHILS PERCENT AUTO 86 % (41-73); Platelet Count 423 K/mm3 (150-400); RDW Coefficient Variation 12.3 % (11.7-14.2); RDW Standard Deviation 40.2 fL (35.1-46.3); Red Blood Cell Count 2.96 M/mm3 (4.30-5.90)
[2021-11-23 12:19] LABS: Alanine Aminotransfer (ALT/SGP 17 U/L (12-78); Albumin/Globulin Ratio 0.7 (0.8-1.8); Alk Phos 49 U/L (50-136); Anion Gap 11 mmol/L (6-16); Aspartate Aminotrans (AST/SGOT 15 U/L (12-37); Bilirubin, Total 0.7 mg/dL (0.1-1.0); Blood Urea Nitrogen 7 mg/dL (8-24); Bun/Creatinine Ratio 7.5 (12.0-20.0); CO2, Blood 22 mmol/L (21-32); Calcium, Blood 8.5 mg/dL (8.5-10.1); Chloride, Blood 101 mmol/L (98-108); Creatinine, Blood 0.94 mg/dL (0.60-1.20); Globulin, Blood 4.4 g/dL (2.2-4.0); Glomerular Filtration Rate >60 (60-); Glucose, Blood 160 mg/dL (70-99); Potassium, Blood 3.4 mmol/L (3.5-5.5); Sodium, Blood 134 mmol/L (136-145); Total Protein, Blood 7.4 g/dL (6.4-8.2)
[2021-11-23 13:30] LABS: Bicarbonate Venous 23.3 mmol/L (24.0-30.0); PCO2 Venous 21.3 mmHg (38-42); PO2 Venous 188 mmHg (38-42); pH Blood Venous 7.58 (7.34-7.37)
[2021-11-23 13:31] LABS: Base Excess Venous -2.3 mmol/L
[2021-11-23 15:17] LABS: Source, Urine Clean Catch
[2021-11-23 16:00] LABS: Appearance, Urine Clear (Clear); Bilirubin, Urine Neg (Neg); Blood, Urine 1+ (Neg); Glucose Qualitative, Urine Neg (Neg); Ketones, Urine 3+ (Neg); Leukocyte Esterase, Urine Neg (Neg); Nitrite, Urine Neg (Neg); Protein, Urine 2+ (Neg); Specific Gravity, Urine 1.005 (1.003-1.022); Urobilinogen, Urine NORM (Normal)
[2021-11-23 16:24] LABS: Color, Urine Pale Yellow (P-Yellow)
[2021-11-23 16:25] LABS: Bacteria Rare /hpf; Red Blood Cells, Urine 0-2 /hpf (0-2); Squamous Epithelial Cells Rare /hpf (Few); White Blood Cells, Urine 0-2 /hpf (0-5)
[2021-11-23 22:27] LABS: Anion Gap 9 mmol/L (6-16); Blood Urea Nitrogen 6 mg/dL (8-24); Bun/Creatinine Ratio 6.8 (12.0-20.0); CO2, Blood 22 mmol/L (21-32); Chloride, Blood 104 mmol/L (98-108); Creatinine, Blood 0.89 mg/dL (0.60-1.20); Glomerular Filtration Rate >60 (60-); Glucose, Blood 186 mg/dL (70-99); Magnesium, Blood 2.4 mg/dL (1.6-2.4); Sodium, Blood 135 mmol/L (136-145)
--- NOTE | 2021-11-24 02:48 | NUR ---
PATIENT IS A NEW ADMIT FROM THE ED. AXO X 4 SELF TRANSFER FROM [facility] TO BED. NS INFUSING FROM THE ED. ON ROOM AIR. DENIES CHEST PAIN, SOB, AND N/V. REPORTING CRAMPING IN ABDOMEN. TELEMETRY PLACED AND TECH REPORTS NSR 85 WITH QTc .56. REPORTS HAD EGD AND COLONOSCOPY ON THE AND A FEW DAYS AGO WITH DR KITCHEN. MILD HYPERTENSION 167/99. REPORTS HE HAS A GASTRIC PUMP, INSULIN PUMP, AND GLUCOSE IMPLANT METER. LIVES IN [place] WITH SPOUSE AND TWO CHILDREN. NS INFUSING AT 75mL/HR. WCTM
[2021-11-24 04:56] LABS: Hematocrit 23.4 % (37.0-53.0); Hemoglobin 8.2 g/dL (13.5-17.5); Mean Corpuscular HGB 32.2 pg (26.0-34.0); Mean Corpuscular Volume 92 fL (80-100); Mean Platelet Volume 9.3 fL (9.1-12.4); Platelet Count 347 K/mm3 (150-400); RDW Coefficient Variation 12.4 % (11.7-14.2); RDW Standard Deviation 41.6 fL (35.1-46.3); Red Blood Cell Count 2.55 M/mm3 (4.30-5.90); White Blood Cell Count 8.03 K/mm3 (4.00-11.30)
[2021-11-24 05:19] LABS: Anion Gap 7 mmol/L (6-16); Blood Urea Nitrogen 4 mg/dL (8-24); CO2, Blood 23 mmol/L (21-32); Calcium, Blood 7.7 mg/dL (8.5-10.1); Chloride, Blood 105 mmol/L (98-108); Creatinine, Blood 0.79 mg/dL (0.60-1.20); Glomerular Filtration Rate >60 (60-); Glucose, Blood 207 mg/dL (70-99); Potassium, Blood 3.4 mmol/L (3.5-5.5); Sodium, Blood 135 mmol/L (136-145)
--- NOTE | 2021-11-24 21:02 | NUR ---
SHIFT SUMMARY- PT ALERT, ORIENTED AND INDEPENDENT IN THE ROOM. IVF RUNNING AT 75ML/HR PT SEEMS TO BE MUCH BETTER THIS EVENING COMPARED TO THIS MORNING, HE STATED DURRING SHIFT REPORT HE HAD JUST HAD A BM. PAIN SEEMS TO BE WELL MANAGED WITH THE IV DILAUDID, AND THE MARINOL SEEMS TO BE HELPING WITH THE NAUSEA, PT HAS NOT HAD ANY EVENTS THAT THIS RN WAS NOTIFIED OF ON TELE. PT SITTING UP IN BED, CALL LIGHT IN REACH NO S&S OF PAIN OR DISTRESS NOTED AT THE TIME OF BEDSIDE REPORT.
--- NOTE | 2021-11-25 05:01 | NUR ---
SHIFT SUMMARY 51 YR M ADMITTED ON 11/24/21/ FOR GASTROPARESIS. FULL CODE. NO ACUTE CHANGES THIS SHIFT. PY HAS BEEN NOTED TO HAVE A PROLONGED QR COMPLEX BUT THIS NURSE WAS NOT NOTIFIED BY TELE THIS SHIFT OF ANY EVENTS. PT IS INDEPENDANT IN THE ROOM AND IS PLEASANT AND COOPERATIVE. HE C/O PAIN IN HIS ABDOMEN AND WAS MEDICATED PER EMAR WITH GOOD RESULTS. NO REPORTS OF N/V THIS SHIFT.
[2021-11-25 07:54] LABS: BASOPHILS ABSOLUTE AUTO 0.04 K/mm3 (0.00-0.23); BASOPHILS PERCENT AUTO 1 % (0-2); EOSINOPHILS ABSOLUTE AUTO 0.38 K/mm3 (0.00-0.68); EOSINOPHILS PERCENT AUTO 6 % (0-6); Hematocrit 28.3 % (37.0-53.0); Hemoglobin 9.4 g/dL (13.5-17.5); IMMATURE GRAN ABSOLUTE AUTO 0.03 K/mm3 (0.00-0.10); IMMATURE GRAN PERCENT AUTO 1 % (0-1); LYMPHOCYTES ABSOLUTE AUTO 1.05 K/mm3 (0.84-5.20); LYMPHOCYTES PERCENT AUTO 17 % (21-46); MONOCYTES ABSOLUTE AUTO 0.32 K/mm3 (0.16-1.47); MONOCYTES PERCENT AUTO 5 % (4-13); Mean Corpuscular HGB 31.2 pg (26.0-34.0); Mean Corpuscular HGB Conc 33.2 g/dL (31.5-36.5); Mean Corpuscular Volume 94 fL (80-100); Mean Platelet Volume 9.3 fL (9.1-12.4); NEUTROPHILS ABSOLUTE AUTO 4.21 K/mm3 (1.96-9.15); NEUTROPHILS PERCENT AUTO 70 % (41-73); Platelet Count 483 K/mm3 (150-400); RDW Coefficient Variation 12.6 % (11.7-14.2); RDW Standard Deviation 43.6 fL (35.1-46.3); Red Blood Cell Count 3.01 M/mm3 (4.30-5.90); White Blood Cell Count 6.03 K/mm3 (4.00-11.30)
[2021-11-25 08:12] LABS: Alanine Aminotransfer (ALT/SGP 20 U/L (12-78); Albumin, Blood 2.9 g/dL (3.4-5.0); Albumin/Globulin Ratio 0.7 (0.8-1.8); Alk Phos 52 U/L (50-136); Anion Gap 8 mmol/L (6-16); Aspartate Aminotrans (AST/SGOT 11 U/L (12-37); Bilirubin, Total 0.5 mg/dL (0.1-1.0); Blood Urea Nitrogen 4 mg/dL (8-24); Bun/Creatinine Ratio 5.1 (12.0-20.0); CO2, Blood 22 mmol/L (21-32); Calcium, Blood 8.5 mg/dL (8.5-10.1); Chloride, Blood 110 mmol/L (98-108); Creatinine, Blood 0.79 mg/dL (0.60-1.20); Globulin, Blood 4.3 g/dL (2.2-4.0); Glomerular Filtration Rate >60 (60-); Glucose, Blood 209 mg/dL (70-99); Magnesium, Blood 2.1 mg/dL (1.6-2.4); Phosphorus, Blood 2.9 mg/dL (2.5-4.9); Potassium, Blood 4.1 mmol/L (3.5-5.5); Sodium, Blood 140 mmol/L (136-145); Total Protein, Blood 7.2 g/dL (6.4-8.2)
--- NOTE | 2021-11-25 18:06 | NUR ---
SUMMARY- PT A/O X4, UP INDEPENDANT IN ROOM AND STEADY ON FEET. PT TOLERATING FOOD TO FULL DIET AND FLUIDS. HAS IVF NS AT 75/HR CONT. VOIDING AND STATED BM LAST NIGHT LOOSE, AND TODAY HAD MED SEMI-FORMED BROWN. PAIN CONTROLLED WITH DILAUDID 1MG IV Q4 PRN ALTERNATING WITH OXYCODONE 10MG PO. PT HAS INSULIN PUMP AND MANAGES HIS OWN BLOOD SUGARS. STATES NAUSES THIS AM BUT HAS HAD MIN NAUASA THIS AFTERNOON.
--- NOTE | 2021-11-26 04:46 | NUR ---
SHIFT SUMMARY 51 YR M ADMITTED ON 11/24/21 FOR GASTROPARESIS. FULL CODE. NO ACUTE CHANGES THIS SHIFT. PT IS VERY ANXIOUS ABOUT HAVING HIS PAIN MEDS ON TIME AND WILL CALL PROMPTLY WHEN THEY ARE DUE. HE IS INDEPENDANT IN THE ROOM AND STATES THAT HE HAS BEEN FEELING BETTER. HE STATED TO THIS NURSE THAT HE WILL LIKELY BE RELEASED SOON. HE IS COOPERATIVE AND WILLING TO PARTICIPATE IN HIS OWN CARE. CALL LIGHT IS WITHIN REACH AND BED STAYS IN LOWEST POSITION.
[2021-11-26 04:55] LABS: BASOPHILS ABSOLUTE AUTO 0.06 K/mm3 (0.00-0.23); BASOPHILS PERCENT AUTO 1 % (0-2); EOSINOPHILS ABSOLUTE AUTO 0.34 K/mm3 (0.00-0.68); EOSINOPHILS PERCENT AUTO 6 % (0-6); Hematocrit 25.6 % (37.0-53.0); Hemoglobin 8.3 g/dL (13.5-17.5); IMMATURE GRAN ABSOLUTE AUTO 0.02 K/mm3 (0.00-0.10); IMMATURE GRAN PERCENT AUTO 0 % (0-1); LYMPHOCYTES ABSOLUTE AUTO 1.21 K/mm3 (0.84-5.20); LYMPHOCYTES PERCENT AUTO 22 % (21-46); MONOCYTES ABSOLUTE AUTO 0.35 K/mm3 (0.16-1.47); MONOCYTES PERCENT AUTO 6 % (4-13); Mean Corpuscular HGB 30.9 pg (26.0-34.0); Mean Corpuscular HGB Conc 32.4 g/dL (31.5-36.5); Mean Corpuscular Volume 95 fL (80-100); Mean Platelet Volume 9.1 fL (9.1-12.4); NEUTROPHILS ABSOLUTE AUTO 3.64 K/mm3 (1.96-9.15); NEUTROPHILS PERCENT AUTO 65 % (41-73); Platelet Count 444 K/mm3 (150-400); RDW Coefficient Variation 12.5 % (11.7-14.2); RDW Standard Deviation 43.3 fL (35.1-46.3); Red Blood Cell Count 2.69 M/mm3 (4.30-5.90); White Blood Cell Count 5.62 K/mm3 (4.00-11.30)
[2021-11-26 05:13] LABS: Albumin, Blood 2.6 g/dL (3.4-5.0); Anion Gap 6 mmol/L (6-16); Blood Urea Nitrogen 5 mg/dL (8-24); Bun/Creatinine Ratio 6.5 (12.0-20.0); CO2, Blood 24 mmol/L (21-32); Calcium, Blood 8.4 mg/dL (8.5-10.1); Chloride, Blood 109 mmol/L (98-108); Creatinine, Blood 0.78 mg/dL (0.60-1.20); Glomerular Filtration Rate >60 (60-); Glucose, Blood 173 mg/dL (70-99); Magnesium, Blood 1.9 mg/dL (1.6-2.4); Phosphorus, Blood 3.7 mg/dL (2.5-4.9); Potassium, Blood 4.6 mmol/L (3.5-5.5); Sodium, Blood 139 mmol/L (136-145)
[2021-11-26] MEDS ORDERED: DRON2.5 PO (14:31)
--- NOTE | 2021-11-26 15:07 | NUR ---
PT DISCHARGED WITH INSTRUCTIONS 1455- REFUSED WHEELCHAIR OUT- AMBULATED SBA WITH TO PRIVATE CAR TO DRIVE PT HOME. SENT HOME WITH BELONGINGS. TOLERATED ALL FOOD AND FLUIDS WITH MIN NAUSEA AND PAIN CONTROLLED
== END 2021-11-26 14:55 | disposition home or self-care (01) | DRG 74 ==
LOC: ER 11:15 → MEDS 11:16 → ER 21:55 → MEDS 21:55 → ER 23:52 → MEDS 11-24 00:02
PROVIDERS: Family Medicine; Physician Assistant; Student in an Organized Health Care Education/Training Program; ADMIT Internal Medicine
DX: E10.43 Type 1 diabetes mellitus with diabetic autonomic (poly)neuropathy (principal); K31.84 Gastroparesis; I10 Essential (primary) hypertension; F32.A Depression, unspecified; Z88.5 Allergy status to narcotic agent; I27.23 Pulmonary hypertension due to lung diseases and hypoxia; Z79.4 Long term (current) use of insulin; Z79.899 Other long term (current) drug therapy; E78.5 Hyperlipidemia, unspecified; Z98.890 Other specified postprocedural states; R94.31 Abnormal electrocardiogram [ECG] [EKG]
CPT/HCPCS: 36415; 74177; 80048; 80053; 80069; 81001; 82010; 82803; 82947; 83690; 83735; 84100; 85025; 85027; 93005; 93010; 96365-59; 96366; 96375; 96376; 99285-25; A9270; J0780; J1170; J1650; J1885; J2405; J2765; J3475; J3480; J7030; J7042; J7050; J7060; J7120; Q0167; Q9967

== ENCOUNTER 2021-12-11 21:06 | Emergency (ER) | payer MEDICARE, OTHER ==
[~2021-12-11] VITALS: Ht 185.4 cm; Wt 68.0 kg
[~2021-12-11 21:06] MED LIST changes: +DRON2.5 PO
[2021-12-12 00:47] LABS: BASOPHILS ABSOLUTE AUTO 0.06 K/mm3 (0.00-0.23); BASOPHILS PERCENT AUTO 1 % (0-2); EOSINOPHILS PERCENT AUTO 0 % (0-6); Hematocrit 36.2 % (37.0-53.0); IMMATURE GRAN ABSOLUTE AUTO 0.01 K/mm3 (0.00-0.10); IMMATURE GRAN PERCENT AUTO 0 % (0-1); LYMPHOCYTES ABSOLUTE AUTO 1.21 K/mm3 (0.84-5.20); LYMPHOCYTES PERCENT AUTO 20 % (21-46); MONOCYTES ABSOLUTE AUTO 0.31 K/mm3 (0.16-1.47); MONOCYTES PERCENT AUTO 5 % (4-13); Mean Corpuscular HGB 31.1 pg (26.0-34.0); Mean Corpuscular HGB Conc 33.1 g/dL (31.5-36.5); Mean Corpuscular Volume 94 fL (80-100); Mean Platelet Volume 9.3 fL (9.1-12.4); NEUTROPHILS ABSOLUTE AUTO 4.63 K/mm3 (1.96-9.15); NEUTROPHILS PERCENT AUTO 74 % (41-73); Platelet Count 326 K/mm3 (150-400); RDW Coefficient Variation 13.3 % (11.7-14.2); Red Blood Cell Count 3.86 M/mm3 (4.30-5.90); White Blood Cell Count 6.22 K/mm3 (4.00-11.30)
[2021-12-12 00:59] LABS: Alanine Aminotransfer (ALT/SGP 29 U/L (12-78); Albumin/Globulin Ratio 0.9 (0.8-1.8); Alk Phos 70 U/L (50-136); Anion Gap 13 mmol/L (6-16); Aspartate Aminotrans (AST/SGOT 19 U/L (12-37); Bilirubin, Total 0.9 mg/dL (0.1-1.0); Blood Urea Nitrogen 21 mg/dL (8-24); CO2, Blood 18 mmol/L (21-32); Calcium, Blood 9.6 mg/dL (8.5-10.1); Chloride, Blood 103 mmol/L (98-108); Creatinine, Blood 1.05 mg/dL (0.60-1.20); Globulin, Blood 4.7 g/dL (2.2-4.0); Glomerular Filtration Rate >60 (60-); Glucose, Blood 204 mg/dL (70-99); Potassium, Blood 4.6 mmol/L (3.5-5.5); Sodium, Blood 134 mmol/L (136-145); Total Protein, Blood 8.7 g/dL (6.4-8.2)
== END 2021-12-12 03:30 | disposition home or self-care (01) ==
LOC: ER 21:06
PROVIDERS: Emergency Medicine
DX: E10.43 Type 1 diabetes mellitus with diabetic autonomic (poly)neuropathy (principal); K31.84 Gastroparesis
CPT/HCPCS: 36415; 80053; 83690; 85025; J1170; J1885; J2550; J2765; J7030

== ENCOUNTER 2022-03-10 13:46 | Observation (INO) | payer MEDICARE, OTHER ==
[~2022-03-10] VITALS: Ht 185.4 cm; Wt 68.5 kg
[2022-03-10 14:14] LABS: Base Excess Venous -4.6 mmol/L; Bicarbonate Venous 21.9 mmol/L (24.0-30.0); PCO2 Venous 23.8 mmHg (38-42)
[2022-03-10 14:57] LABS: BASOPHILS ABSOLUTE AUTO 0.03 K/mm3 (0.00-0.23); BASOPHILS PERCENT AUTO 0 % (0-2); EOSINOPHILS PERCENT AUTO 0 % (0-6); Hematocrit 35.9 % (37.0-53.0); IMMATURE GRAN ABSOLUTE AUTO 0.07 K/mm3 (0.00-0.10); IMMATURE GRAN PERCENT AUTO 1 % (0-1); LYMPHOCYTES ABSOLUTE AUTO 1.17 K/mm3 (0.84-5.20); LYMPHOCYTES PERCENT AUTO 8 % (21-46); MONOCYTES ABSOLUTE AUTO 0.83 K/mm3 (0.16-1.47); MONOCYTES PERCENT AUTO 6 % (4-13); Mean Corpuscular HGB 31.6 pg (26.0-34.0); Mean Corpuscular HGB Conc 36.2 g/dL (31.5-36.5); Mean Corpuscular Volume 87 fL (80-100); Mean Platelet Volume 9.5 fL (9.1-12.4); NEUTROPHILS ABSOLUTE AUTO 12.43 K/mm3 (1.96-9.15); NEUTROPHILS PERCENT AUTO 86 % (41-73); Platelet Count 281 K/mm3 (150-400); RDW Standard Deviation 41.8 fL (35.1-46.3); Red Blood Cell Count 4.11 M/mm3 (4.30-5.90); White Blood Cell Count 14.53 K/mm3 (4.00-11.30)
[2022-03-10 15:19] LABS: Albumin, Blood 4.6 g/dL (3.4-5.0); Albumin/Globulin Ratio 1.1 (0.8-1.8); Bilirubin, Total 1.9 mg/dL (0.1-1.0); Bun/Creatinine Ratio 25.6 (12.0-20.0); Calcium, Blood 9.9 mg/dL (8.5-10.1); Creatinine, Blood 1.17 mg/dL (0.60-1.20); Globulin, Blood 4.3 g/dL (2.2-4.0); Potassium, Blood 3.7 mmol/L (3.5-5.5); Total Protein, Blood 8.9 g/dL (6.4-8.2)
[2022-03-10 15:51] LABS: Influenza A, PCR NEGATIVE (NEGATIVE); Influenza B, PCR NEGATIVE (NEGATIVE); Resp Syncytial Virus, PCR NEGATIVE (NEGATIVE); SARS-Cov-2 (COVID-19) PCR, MMC NEGATIVE (NEGATIVE)
[2022-03-10 18:58] LABS: Bun/Creatinine Ratio 25.7 (12.0-20.0); Calcium, Blood 8.3 mg/dL (8.5-10.1); Creatinine, Blood 1.05 mg/dL (0.60-1.20); Potassium, Blood 3.5 mmol/L (3.5-5.5)
[2022-03-11] MEDS ORDERED: OXYC10TA19 PO (01:22)
--- NOTE | 2022-03-11 01:23 | NUR ---
ADMISSION: PATIENT IS RECIEVED FROM ER VIA STRETCHER. ABLE TO ABULATE TO THE BED FROM STRETCHER. PATIENT ALERT AND ORIENTED BUT IS MIXING DATES UP. GIVES BIRTHDATE FOR TODAYS DATE. PATIEWNT HAS NO IV, PULLED IT OUT IN THE ER. WHEN ASKED WHY HE PULLED OUT IV. " FOR SOMETHING TO DO". PATIENT REPORTS ABD. PAIN 10/10 AND NAUSEA.
[2022-03-11 05:19] LABS: BASOPHILS ABSOLUTE AUTO 0.02 K/mm3 (0.00-0.23); BASOPHILS PERCENT AUTO 0 % (0-2); EOSINOPHILS PERCENT AUTO 0 % (0-6); Hematocrit 32.4 % (37.0-53.0); Hemoglobin 11.2 g/dL (13.5-17.5); IMMATURE GRAN ABSOLUTE AUTO 0.08 K/mm3 (0.00-0.10); IMMATURE GRAN PERCENT AUTO 1 % (0-1); LYMPHOCYTES ABSOLUTE AUTO 1.47 K/mm3 (0.84-5.20); LYMPHOCYTES PERCENT AUTO 11 % (21-46); MONOCYTES ABSOLUTE AUTO 1.03 K/mm3 (0.16-1.47); MONOCYTES PERCENT AUTO 7 % (4-13); Mean Corpuscular HGB 31.5 pg (26.0-34.0); Mean Corpuscular HGB Conc 34.6 g/dL (31.5-36.5); Mean Corpuscular Volume 91 fL (80-100); Mean Platelet Volume 9.9 fL (9.1-12.4); NEUTROPHILS ABSOLUTE AUTO 11.41 K/mm3 (1.96-9.15); NEUTROPHILS PERCENT AUTO 81 % (41-73); Platelet Count 239 K/mm3 (150-400); RDW Coefficient Variation 12.8 % (11.7-14.2); Red Blood Cell Count 3.55 M/mm3 (4.30-5.90); White Blood Cell Count 14.01 K/mm3 (4.00-11.30)
[2022-03-11 05:41] LABS: Bun/Creatinine Ratio 23.5 (12.0-20.0); Creatinine, Blood 1.02 mg/dL (0.60-1.20); Potassium, Blood 3.5 mmol/L (3.5-5.5)
--- NOTE | 2022-03-11 06:18 | NUR ---
SHIFT SUMMARY: PATIENT IS ALERT AND ORIENTED TO SELF AND PLACE. WHEN ASKED DATE HE REPEATEDLY STATES HIS BIRTHDATE. PER INSULIN PUMP SCREENING ON ADMISSION, INSULINPUMP SHOULD BE DC'D DUE TO PATIENT IS UNABLE TO MANAGE PUMP IF CONFUSED. BP IS ALSO ELEVATED, PATIENT REPORTED MISSING DOSES DUE TO NAUSEA. DR ARROYO IS NOTIFIED. ORDER TO LEAVE INSULIN PUMP IN PLACE WITH BASAL RATE CONTINUED PROGRAMMED IS OBTAINED. BLOOD GLUCOSE CHECKS ARE ORDER FOR AC&HS WITH LOW SS. PATIENT IS PAINFUL AND NAUSEATED ON ADMIT. PATIENT STATED HE DID NOT THINK TYLENOL WOULD HELP. PHENERGAN IS ORDERED FOR NAUSEA BUT OPERATOR COMMAND SUPPORT SYSTEMS CAN NOT ADMIN. MED VIA PERIFERRAL IV IN R WRIST DR ARROYO WAS NOTIFIED AND PHENERGAN IS DC'D OXYCODONE 5-10 MG IS ORDERED AND MED IS GIVEN WITH GOOD EFFECT. PATIENT HAD GOOD EFFECT FROM OXYCODONE AND COMPAZINE GIVEN. NO DRY HEAVING OR VOMITING OBSERVED.
--- NOTE | 2022-03-11 15:48 | NUR ---
SHIFT SUMMARY PT AWAKE DURING SHIFT REPORT, GETTING OOB TO GO TO BTHRM, SETTING BED ALARM OFF. PT ASSISTED WITH IV PUMP TO GET TO BTHRM. PT RETURNED TO BED AFTER GETTING UP AND IV SITE NO LONGER PATENT. NEW IV PLACED TO LFA. PT NOT EATING MUCH FOR BREAKFAST OR LUNCH; CL DIET. PT ONLY HAD 1 BRIEF EPISODE OF DRY HEAVING TO PRESENT THIS SHIFT. MEDICATED X1 FOR C/O PAIN THIS AFTERNOON. TELE MX CALLED TO REPORT POSSIBLE ST ELEVATION ON MONITOR. DR AMAYA NOTIFIED FOR EKG; DONE BY CHRG RN SHOWING SR, NO ST ELEVATION. PT DENIED HAVING ANY PAIN. RESTING QUIETLY WATCHING TV. CALL LT IN REACH. DENIED FURTHER NEEDS. PT HERE FOR OBS, POSSIBLE D/C TOMORROW.
--- NOTE | 2022-03-12 07:56 | NUR ---
SUMMARY BP ELEVATED SINCE ADMIT. REPORTED THIS HAS BEEN SAME WITH PRIOR ADMIT. PER DICATATION DR MASCORRO RN AGREES TO FOLLOW UP.MED WITH COMPAZINE X1 FOR NAUSEA. NO EMESIS NOTED.
--- NOTE | 2022-03-12 17:50 | NUR ---
SHIFT SUMMARY PATIENT MEDICATED X2 FOR NAUSEA. PATIENT DENIES PAIN, AND SHORTNESS OF BREATH. PATIENT IS IND IN ROOM. PATIENT SLPET MOST OF THE MORNING. PATIENT WOKE UP IN AFTERNOON, COUGHING. PATIENT CALLED RN INTO ROOM STATING HE VOMITTED. EMESIS BAG OF APPROX. 100ML OF CLEAR LIQUID WITH SPIT. PATIENT ADVANCED TO SOFT DIET, REFUSING FOOD. PATIENT TOELRATING LIQUIDS WELL. PATIENT PLEASANT AND COOPERATIVE WITH CARE.
--- NOTE | 2022-03-13 04:12 | NUR ---
SHIFT SUMMARY ADMITTED FOR N/V. FULL CODE. HX: DM1, GASTROPARESIS, EROSIVE ESOPHAGITIS, SPASTIC COLON. ADVANCING DIET. PT IS PREFERING FULL LIQUID/VEGETARIAN DIET. PT DENIES NAUSEA THIS SHIFT. TELEMETRY: NSR @ 84 BPM. INSULIN PUMP IS OFF. ACHS CHEMSTICKS ORDERED, Q6 INSULIN IS SCHEDULED. A&O X4, ANXIETY NOTED. HTN NOTED, MEDICATED PER EMAR.
[2022-03-13 05:28] LABS: BASOPHILS ABSOLUTE AUTO 0.02 K/mm3 (0.00-0.23); BASOPHILS PERCENT AUTO 0 % (0-2); EOSINOPHILS PERCENT AUTO 2 % (0-6); Hematocrit 31.6 % (37.0-53.0); Hemoglobin 11.5 g/dL (13.5-17.5); IMMATURE GRAN ABSOLUTE AUTO 0.03 K/mm3 (0.00-0.10); IMMATURE GRAN PERCENT AUTO 1 % (0-1); LYMPHOCYTES ABSOLUTE AUTO 1.63 K/mm3 (0.84-5.20); LYMPHOCYTES PERCENT AUTO 25 % (21-46); MONOCYTES ABSOLUTE AUTO 0.69 K/mm3 (0.16-1.47); MONOCYTES PERCENT AUTO 10 % (4-13); Mean Corpuscular HGB 31.7 pg (26.0-34.0); Mean Corpuscular HGB Conc 36.4 g/dL (31.5-36.5); Mean Corpuscular Volume 87 fL (80-100); Mean Platelet Volume 9.6 fL (9.1-12.4); NEUTROPHILS ABSOLUTE AUTO 4.16 K/mm3 (1.96-9.15); NEUTROPHILS PERCENT AUTO 63 % (41-73); Platelet Count 233 K/mm3 (150-400); RDW Coefficient Variation 12.2 % (11.7-14.2); RDW Standard Deviation 39.3 fL (35.1-46.3); Red Blood Cell Count 3.63 M/mm3 (4.30-5.90); White Blood Cell Count 6.63 K/mm3 (4.00-11.30)
[2022-03-13 05:56] LABS: Bun/Creatinine Ratio 19.4 (12.0-20.0); C-Reactive Protein, High Sens. 0.632 mg/L (0.000-3.000); Calcium, Blood 8.5 mg/dL (8.5-10.1); Creatinine, Blood 0.88 mg/dL (0.60-1.20); Potassium, Blood 3.3 mmol/L (3.5-5.5)
[2022-03-13] MEDS ORDERED: SERT100 PO (16:58)
--- NOTE | 2022-03-13 17:37 | NUR ---
DISCHARGE PATIENT TRANSPORTED VIA WHEELCHAIR TO PRIVATE VEHICLE. DISCHARGE INSTRUCTIONS EXPLAINED TO PATIENT. PATIENT STATED UNDERSTANDING. PACKET SENT WITH PATIENT. BELONGINGS SENT WITH PATIENT. IV REMOVED WITHOUT DIFFICULTY. TELE REMOVED WITHOUT DIFFICULTY. NO NEW MEDICATIONS TO FAX TO PHARMACY. PATIENT INSTRUCTED TO CONTINUE INSULIN PUMP ONCE HOME. MADE SURE PUMP WAS CORRECTLY CALLIBRATED BEFORE DISCHARGE, PER DR. MONIQUE SPENCE. [facility] TO CALL PATIENT TO SCHEDULE FOLLOW UP APPOINTMENT.
== END 2022-03-13 17:28 | disposition home or self-care (01) ==
LOC: ER 13:46 → MEDS 13:47
PROVIDERS: Family Medicine; Internal Medicine; Physician Assistant; Student in an Organized Health Care Education/Training Program; ADMIT Internal Medicine
DX: E10.43 Type 1 diabetes mellitus with diabetic autonomic (poly)neuropathy (principal); K31.84 Gastroparesis; R11.2 Nausea with vomiting, unspecified; E10.40 Type 1 diabetes mellitus with diabetic neuropathy, unspecified; I10 Essential (primary) hypertension; I45.81 Long QT syndrome; F32.A Depression, unspecified; E10.10 Type 1 diabetes mellitus with ketoacidosis without coma; E87.3 Alkalosis; Z20.822 Contact with and (suspected) exposure to COVID-19
CPT/HCPCS: 0241U; 36415; 76705; 80048; 80053; 82010; 82248; 82803; 82947; 83605; 83690; 85025; 85651; 86141; 93005; 93010; 96361; 96374; 96375; 99285-25; A9270; J0780; J1790; J1815; J1885; J2270; J2405; J2550; J2765; J7030; Q0167

== ENCOUNTER → 2022-05-15 | Outpatient (CLI) | payer MEDICARE, OTHER ==
[~2022-05-15] MED LIST changes: +METO25 PO
[2022-05-15 14:15] LABS: Creatinine, Urine Random 88.4 mg/dL (27.00-270.00); Microalb/Creat Ratio UR, Rand 253.394 mg/g (0.000-30.000)
== END | disposition home or self-care (01) ==
LOC: LAB 12:31 → LAB SHORT 12:31
PROVIDERS: Family Medicine
DX: E10.65 Type 1 diabetes mellitus with hyperglycemia (principal)
CPT/HCPCS: 82043; 82570

== ENCOUNTER 2022-05-24 09:45 | Inpatient (IN) | payer MEDICARE, OTHER ==
[~2022-05-24] VITALS: Ht 185.4 cm; Wt 60.1 kg
[~2022-05-24 09:45] MED LIST changes: -METO25 PO
[2022-05-24 10:44] LABS: Hematocrit 38.7 % (37.0-53.0); Hemoglobin 13.5 g/dL (13.5-17.5); Mean Corpuscular HGB 31.5 pg (26.0-34.0); Mean Corpuscular HGB Conc 34.9 g/dL (31.5-36.5); Mean Corpuscular Volume 90 fL (80-100); Mean Platelet Volume 10.2 fL (9.1-12.4); Platelet Count 371 K/mm3 (150-400); Red Blood Cell Count 4.28 M/mm3 (4.30-5.90); White Blood Cell Count 17.87 K/mm3 (4.00-11.30)
[2022-05-24 10:49] LABS: Albumin, Blood 4.8 g/dL (3.4-5.0); Bilirubin, Total 1.7 mg/dL (0.1-1.0); Bun/Creatinine Ratio 20.4 (12.0-20.0); Calcium, Blood 10.1 mg/dL (8.5-10.1); Creatinine, Blood 1.13 mg/dL (0.60-1.20); Globulin, Blood 4.7 g/dL (2.2-4.0); Potassium, Blood 3.7 mmol/L (3.5-5.5); Total Protein, Blood 9.5 g/dL (6.4-8.2)
[2022-05-24 11:10] LABS: Bicarbonate Venous 21.3 mmol/L (24.0-30.0); pH Blood Venous 7.49 (7.34-7.37)
[2022-05-24 11:21] LABS: BASOPHILS PERCENT MAN 0 % (0-2); EOSINOPHILS PERCENT MAN 0 % (0-6); LYMPHOCYTES ABSOLUTE MAN 0.89 K/mm3 (0.84-5.20); LYMPHOCYTES PERCENT MAN 5 % (21-46); MONOCYTES ABSOLUTE MAN 1.07 K/mm3 (0.16-1.47); MONOCYTES PERCENT MAN 6 % (4-13); SEG NEUTROPHILS PERCENT MAN 89 % (41-73); TOTAL CELLS COUNTED 100
--- NOTE | 2022-05-24 12:55 | NUR ---
ARRIVAL TO ICU PT TRANSFERS SELF TO ICU BED. HE IS RECEIVING KCL IN D5W AT 150ML/HR. INSULIN GTT INFUSING AT 6.8UNITS/HR. GLUCOSE 271 AT THIS TIME. INSULIN GTT TITRATED TO 4UNITS/HR. PT A&OX4, COOPERATIVE WITH CARE AND PROVIDES MEDICAL HISTORY. C/O NAUSEA AND ABDOMINAL PAIN. TEMP 100.5. SINUS TACH WITH PROLONGED QT ON MONITOR. EKG DONE AND HOSPITALIST AWARE. PT HAS INSULIN PUMP. REPORTS PUMP HAS BEEN TURNED OFF. PT DISCONNECTS PUMP, APPEARS TO HAVE 1ML OF INSULIN IN VIAL, AND PLACED IN PLASTIC BAG IN BACKPACK. PT HAS SIGNED INSULIN PUMP AGREEMENT AND BEEN GIVEN COPY.
[2022-05-24 13:51] LABS: Anion Gap 13 mmol/L (6-16); Blood Urea Nitrogen 23 mg/dL (8-24); Bun/Creatinine Ratio 20.4 (12.0-20.0); CO2, Blood 21 mmol/L (21-32); Chloride, Blood 100 mmol/L (98-108); Creatinine, Blood 1.13 mg/dL (0.60-1.20); Glomerular Filtration Rate 79 (60-); Glucose, Blood 248 mg/dL (70-99); Phosphorus, Blood 1.3 mg/dL (2.5-4.9); Sodium, Blood 134 mmol/L (136-145)
[2022-05-24 16:08] LABS: Anion Gap 9 mmol/L (6-16); Blood Urea Nitrogen 24 mg/dL (8-24); Bun/Creatinine Ratio 21.8 (12.0-20.0); CO2, Blood 22 mmol/L (21-32); Calcium, Blood 9.1 mg/dL (8.5-10.1); Chloride, Blood 105 mmol/L (98-108); Glomerular Filtration Rate 81 (60-); Glucose, Blood 212 mg/dL (70-99); Phosphorus, Blood 2.8 mg/dL (2.5-4.9); Potassium, Blood 3.3 mmol/L (3.5-5.5); Sodium, Blood 136 mmol/L (136-145)
[2022-05-24 18:08] LABS: Albumin, Blood 3.9 g/dL (3.4-5.0); Anion Gap 8 mmol/L (6-16); Blood Urea Nitrogen 23 mg/dL (8-24); Bun/Creatinine Ratio 19.8 (12.0-20.0); CO2, Blood 21 mmol/L (21-32); Chloride, Blood 104 mmol/L (98-108); Creatinine, Blood 1.16 mg/dL (0.60-1.20); Glomerular Filtration Rate 76 (60-); Glucose, Blood 194 mg/dL (70-99); Phosphorus, Blood 2.3 mg/dL (2.5-4.9); Potassium, Blood 3.4 mmol/L (3.5-5.5); Sodium, Blood 133 mmol/L (136-145)
--- NOTE | 2022-05-24 18:46 | NUR ---
SHIFT SUMMARY PT IS RECEIVING D51/2NS WITH KCL AT 150ML/HR AND INSULIN GTT AT 2UNITS/HR. PT IS CLAMMY/DIAPHORETIC. C/O ABDOMINAL PAIN. A&OX4, VERY PLEASANT AND COOPERATIVE WITH CARE. PT VOIDED ONCE THIS SHIFT, 500ML JOAQUIN URINE. CALL LIGHT WITHIN REACH, PT DENIES NEEDS AT THIS TIME.
--- NOTE | 2022-05-24 19:00 | NUR ---
ASSUMED CARE PT IS AWAKE AND ALERT. TALKING W/ STAFF. INSULIN GTT AT 3UNITS/HR. D5 1/2NS W/ 40MEQ OF KCL AT 150ML/HR. NO VISITORS IN ROOM. BELONGINGS IN CUPBOARD. REPORT RECIEVED FROM YULY JAVED.
[2022-05-24 19:07] LABS: Influenza A, PCR NEGATIVE (NEGATIVE); Influenza B, PCR NEGATIVE (NEGATIVE); Resp Syncytial Virus, PCR NEGATIVE (NEGATIVE); SARS-Cov-2 (COVID-19) PCR, MMC NEGATIVE (NEGATIVE)
[2022-05-24 21:04] LABS: Albumin, Blood 3.8 g/dL (3.4-5.0); Anion Gap 11 mmol/L (6-16); Blood Urea Nitrogen 23 mg/dL (8-24); Bun/Creatinine Ratio 21.7 (12.0-20.0); CO2, Blood 22 mmol/L (21-32); Calcium, Blood 8.9 mg/dL (8.5-10.1); Chloride, Blood 102 mmol/L (98-108); Creatinine, Blood 1.06 mg/dL (0.60-1.20); Glomerular Filtration Rate 85 (60-); Glucose, Blood 209 mg/dL (70-99); Phosphorus, Blood 2.2 mg/dL (2.5-4.9); Potassium, Blood 3.5 mmol/L (3.5-5.5); Sodium, Blood 135 mmol/L (136-145)
[2022-05-24 23:17] LABS: Albumin, Blood 4.1 g/dL (3.4-5.0); Anion Gap 14 mmol/L (6-16); Blood Urea Nitrogen 22 mg/dL (8-24); Bun/Creatinine Ratio 22.4 (12.0-20.0); CO2, Blood 19 mmol/L (21-32); Calcium, Blood 9.6 mg/dL (8.5-10.1); Chloride, Blood 101 mmol/L (98-108); Creatinine, Blood 0.98 mg/dL (0.60-1.20); Ethanol (Alcohol), Blood, Med <3 mg/dL; Glomerular Filtration Rate 93 (60-); Glucose, Blood 272 mg/dL (70-99); Phosphorus, Blood 1.5 mg/dL (2.5-4.9); Potassium, Blood 3.3 mmol/L (3.5-5.5); Sodium, Blood 134 mmol/L (136-145)
[2022-05-25 00:40] LABS: BASOPHILS ABSOLUTE AUTO 0.02 K/mm3 (0.00-0.23); BASOPHILS PERCENT AUTO 0 % (0-2); EOSINOPHILS PERCENT AUTO 0 % (0-6); Hematocrit 30.5 % (37.0-53.0); Hemoglobin 10.9 g/dL (13.5-17.5); IMMATURE GRAN ABSOLUTE AUTO 0.08 K/mm3 (0.00-0.10); IMMATURE GRAN PERCENT AUTO 1 % (0-1); LYMPHOCYTES ABSOLUTE AUTO 1.03 K/mm3 (0.84-5.20); LYMPHOCYTES PERCENT AUTO 6 % (21-46); MONOCYTES ABSOLUTE AUTO 1.18 K/mm3 (0.16-1.47); MONOCYTES PERCENT AUTO 7 % (4-13); Mean Corpuscular HGB 31.4 pg (26.0-34.0); Mean Corpuscular HGB Conc 35.7 g/dL (31.5-36.5); Mean Corpuscular Volume 88 fL (80-100); Mean Platelet Volume 9.4 fL (9.1-12.4); NEUTROPHILS ABSOLUTE AUTO 14.26 K/mm3 (1.96-9.15); NEUTROPHILS PERCENT AUTO 86 % (41-73); Platelet Count 271 K/mm3 (150-400); RDW Standard Deviation 41.7 fL (35.1-46.3); Red Blood Cell Count 3.47 M/mm3 (4.30-5.90); White Blood Cell Count 16.57 K/mm3 (4.00-11.30)
[2022-05-25 00:55] LABS: Albumin, Blood 3.5 g/dL (3.4-5.0); Anion Gap 9 mmol/L (6-16); Blood Urea Nitrogen 22 mg/dL (8-24); Bun/Creatinine Ratio 23.6 (12.0-20.0); CO2, Blood 22 mmol/L (21-32); Calcium, Blood 8.8 mg/dL (8.5-10.1); Chloride, Blood 105 mmol/L (98-108); Creatinine, Blood 0.93 mg/dL (0.60-1.20); Glomerular Filtration Rate 99 (60-); Glucose, Blood 225 mg/dL (70-99); Phosphorus, Blood 2.1 mg/dL (2.5-4.9); Potassium, Blood 3.6 mmol/L (3.5-5.5); Sodium, Blood 136 mmol/L (136-145)
[2022-05-25 03:13] LABS: Albumin, Blood 3.6 g/dL (3.4-5.0); Anion Gap 9 mmol/L (6-16); Blood Urea Nitrogen 21 mg/dL (8-24); Bun/Creatinine Ratio 21.8 (12.0-20.0); CO2, Blood 23 mmol/L (21-32); Calcium, Blood 8.9 mg/dL (8.5-10.1); Chloride, Blood 106 mmol/L (98-108); Creatinine, Blood 0.96 mg/dL (0.60-1.20); Glomerular Filtration Rate 96 (60-); Glucose, Blood 110 mg/dL (70-99); Phosphorus, Blood 2.3 mg/dL (2.5-4.9); Sodium, Blood 138 mmol/L (136-145)
[2022-05-25 04:38] LABS: U Amphetamine Screen Not Detected; U Barbituate Screen Not Detected; U Benzodiazapine Screen Not Detected; U Buprenorphine Screen Not Detected; U Cannabinoids Screen DETECTED; U Cocaine Screen Not Detected; U Methadone Screen Not Detected; U Methamphetamine Screen Not Detected; U Opiates Screen DETECTED; U Oxycodone Screen DETECTED; U Phencyclidine Screen Not Detected; U Propoxyphene Screen Not Detected
[2022-05-25 05:39] LABS: Albumin, Blood 3.5 g/dL (3.4-5.0); Anion Gap 8 mmol/L (6-16); Blood Urea Nitrogen 21 mg/dL (8-24); CO2, Blood 22 mmol/L (21-32); Calcium, Blood 8.9 mg/dL (8.5-10.1); Chloride, Blood 106 mmol/L (98-108); Glomerular Filtration Rate 91 (60-); Glucose, Blood 186 mg/dL (70-99); Phosphorus, Blood 2.4 mg/dL (2.5-4.9); Sodium, Blood 136 mmol/L (136-145)
--- NOTE | 2022-05-25 05:41 | NUR ---
SHIFT SUMMARY NO ACUTE EVENTS OVERNIGHT. PT UP TO BEDSIDE TO VOID. STABLE W/ ONE PERSON ASSIST. MEDICATED FOR PAIN IN ABD T/O SHIFT. INTERMITTENT NAUSEA DURING PERIODS OF PAIN. SEE EMAR. VSS. HYPERTENSIVE AT BEGINING OF SHIFT, MEDICATED W/ HYDRALAZINE W/ GOOD EFFECT. INSULIN GTT INFUSING. SEE FLOWSHEET FOR TITRATION RECORD.
--- NOTE | 2022-05-25 07:09 | NUR ---
TOOK OVER CARE OF PT AT 0700, PT RESTING ON 2L NC, INSULIN GTT AT 3
[2022-05-25 07:37] LABS: Albumin, Blood 3.4 g/dL (3.4-5.0); Anion Gap 9 mmol/L (6-16); Blood Urea Nitrogen 21 mg/dL (8-24); Bun/Creatinine Ratio 22.7 (12.0-20.0); CO2, Blood 23 mmol/L (21-32); Chloride, Blood 105 mmol/L (98-108); Creatinine, Blood 0.93 mg/dL (0.60-1.20); Glomerular Filtration Rate 99 (60-); Glucose, Blood 216 mg/dL (70-99); Phosphorus, Blood 2.2 mg/dL (2.5-4.9); Potassium, Blood 4.1 mmol/L (3.5-5.5); Sodium, Blood 137 mmol/L (136-145)
--- NOTE | 2022-05-25 07:45 | NUR ---
AT BEDSIDE, PT DIRECTED TO SELF PLACE HOME INSULIN PUMP BACK ON, FLUIDS AND INSULIN GTT STOPPED
[2022-05-25 09:28] LABS: Albumin, Blood 3.9 g/dL (3.4-5.0); Anion Gap 15 mmol/L (6-16); Blood Urea Nitrogen 22 mg/dL (8-24); Bun/Creatinine Ratio 22.5 (12.0-20.0); CO2, Blood 16 mmol/L (21-32); Calcium, Blood 9.2 mg/dL (8.5-10.1); Chloride, Blood 104 mmol/L (98-108); Creatinine, Blood 0.98 mg/dL (0.60-1.20); Glomerular Filtration Rate 93 (60-); Glucose, Blood 259 mg/dL (70-99); Phosphorus, Blood 1.5 mg/dL (2.5-4.9); Sodium, Blood 135 mmol/L (136-145)
--- NOTE | 2022-05-25 10:32 | NUR ---
PT STATED INSULIN PUMP WAS ON, BUT HAD NOT BEEN PROGRAMMING BLOLUSES INTO PUMP BASED OFF OF BLOOD SUGARS
[2022-05-25 13:46] LABS: Albumin, Blood 3.6 g/dL (3.4-5.0); Anion Gap 11 mmol/L (6-16); Blood Urea Nitrogen 23 mg/dL (8-24); Bun/Creatinine Ratio 23.5 (12.0-20.0); CO2, Blood 19 mmol/L (21-32); Calcium, Blood 8.9 mg/dL (8.5-10.1); Chloride, Blood 105 mmol/L (98-108); Creatinine, Blood 0.98 mg/dL (0.60-1.20); Glomerular Filtration Rate 93 (60-); Glucose, Blood 310 mg/dL (70-99); Phosphorus, Blood 2.3 mg/dL (2.5-4.9); Potassium, Blood 3.4 mmol/L (3.5-5.5); Sodium, Blood 135 mmol/L (136-145)
--- NOTE | 2022-05-25 16:09 | NUR ---
SHIFT SUMMARY NEURO: WNL (BASELINE NEUROPATHY) CARDIAC: PT TACHY WHILE AWAKE. HYPERTENSIVE SO PRN HYDRALAZINE GIVEN. PT HAD REBOUND TACHYCARDIA TO 145/150. PT STATES ADVERSE REACTION TO LABETOLOL IN THE PAST WAS LOW BLOOD SUGARS. 10MG NORMADYNE GIVEN. EKG COMPLETED. 40MEQ OF POTASSIUM GIVEN. LUNGS: WNL- SLEEP APNEA PER NOC RN REPORT. SKIN: DRY, SCATTERED BRUISING. GI: NAUSEA NOTED AFTER MORPHINE ADMINISTRATION. HEALED PEG AND MIDLINE INCISION SCARS. DIFFUSE CHRONIC ABDOMINAL PAIN. NO BOWEL MOVEMENT. : WNL ENDOCRINE: PT ON HOME INSULIN PUMP, PT SELF BOLUSING INSULIN DOSES AFTER POCT CHECKS.
[2022-05-26 03:56] LABS: BASOPHILS ABSOLUTE AUTO 0.04 K/mm3 (0.00-0.23); BASOPHILS PERCENT AUTO 0 % (0-2); EOSINOPHILS ABSOLUTE AUTO 0.03 K/mm3 (0.00-0.68); EOSINOPHILS PERCENT AUTO 0 % (0-6); Hematocrit 27.7 % (37.0-53.0); Hemoglobin 9.8 g/dL (13.5-17.5); IMMATURE GRAN ABSOLUTE AUTO 0.05 K/mm3 (0.00-0.10); IMMATURE GRAN PERCENT AUTO 0 % (0-1); LYMPHOCYTES ABSOLUTE AUTO 2.07 K/mm3 (0.84-5.20); LYMPHOCYTES PERCENT AUTO 17 % (21-46); MONOCYTES PERCENT AUTO 8 % (4-13); Mean Corpuscular HGB 31.9 pg (26.0-34.0); Mean Corpuscular HGB Conc 35.4 g/dL (31.5-36.5); Mean Corpuscular Volume 90 fL (80-100); Mean Platelet Volume 9.4 fL (9.1-12.4); NEUTROPHILS ABSOLUTE AUTO 8.83 K/mm3 (1.96-9.15); NEUTROPHILS PERCENT AUTO 74 % (41-73); Platelet Count 221 K/mm3 (150-400); RDW Coefficient Variation 13.2 % (11.7-14.2); RDW Standard Deviation 43.1 fL (35.1-46.3); Red Blood Cell Count 3.07 M/mm3 (4.30-5.90); White Blood Cell Count 11.92 K/mm3 (4.00-11.30)
[2022-05-26 04:15] LABS: Albumin, Blood 3.2 g/dL (3.4-5.0); Anion Gap 11 mmol/L (6-16); Blood Urea Nitrogen 22 mg/dL (8-24); Bun/Creatinine Ratio 24.3 (12.0-20.0); CO2, Blood 19 mmol/L (21-32); Calcium, Blood 8.8 mg/dL (8.5-10.1); Chloride, Blood 108 mmol/L (98-108); Creatinine, Blood 0.91 mg/dL (0.60-1.20); Glomerular Filtration Rate 102 (60-); Glucose, Blood 233 mg/dL (70-99); Magnesium, Blood 1.9 mg/dL (1.6-2.4); Phosphorus, Blood 1.5 mg/dL (2.5-4.9); Potassium, Blood 3.8 mmol/L (3.5-5.5); Sodium, Blood 138 mmol/L (136-145)
--- NOTE | 2022-05-26 05:10 | NUR ---
SHIFT SUMMARY: GENERAL: AUTHOR ASSUMED CARE OF PATIENT FROM . MOSTLY UNEVENTFUL SHIFT; PT C/O CHRONIC PAIN, RESPONDS WELL TO PRN MEDS. HEENT: WDL. NEURO: AFEBRILE; MOVES ALL EXTREMITIES, FOLLOWS COMMANDS. SLIGHTLY TREMULOUS. CARDS: SR WITH RATES IN THE 90S. BP WDL, OCC. HYPERTENSIVE. BETA ADAM RESTARTED. RESP: MAJORITY OF SHIFT ON RA, SATTING IN UPPER 90S. 2L NC APPLIED AFTER IV NARCOTICS. MS/INTEG: NOT OUT OF BED OVERNIGHT; NO SKIN CONCERNS. GI/: WDL, NO BM ON THIS SHIFT. ENDO: PATIENT HAS BEEN HYPERGLYCEMIC AT TIMES; SELF-BOLUSING PER HOME PROTOCOL. HE HAS GIVEN HIMSELF 2 DOSES FOR A TOTAL OF 3.2 UNITS.
--- NOTE | 2022-05-26 06:57 | NUR ---
TOOK OVER CARE OF PT AT 0655, PT RESTING ON RA.
[2022-05-26 12:59] LABS: Albumin, Blood 3.3 g/dL (3.4-5.0); Anion Gap 11 mmol/L (6-16); Blood Urea Nitrogen 21 mg/dL (8-24); Bun/Creatinine Ratio 22.5 (12.0-20.0); CO2, Blood 19 mmol/L (21-32); Calcium, Blood 8.5 mg/dL (8.5-10.1); Chloride, Blood 108 mmol/L (98-108); Creatinine, Blood 0.93 mg/dL (0.60-1.20); Glomerular Filtration Rate 99 (60-); Glucose, Blood 211 mg/dL (70-99); Phosphorus, Blood 3.5 mg/dL (2.5-4.9); Potassium, Blood 3.7 mmol/L (3.5-5.5); Sodium, Blood 138 mmol/L (136-145)
--- NOTE | 2022-05-26 18:48 | NUR ---
SHIFT SUMMARY PAIN BETTER CONTROLLED TODAY, INSULIN PUMP AND BOLUSES MANAGED BY PT, SCHEDULED COVERAGE GIVEN BY RN. SODIUM PHOS REPLACED WITH 15MM
--- NOTE | 2022-05-26 19:15 | NUR ---
ASSUMED CARE OF PT @1900. PT IS A&O X4. PT USING IS BOLUSING SELF VIA INSULIN PUMP. GAVE 4.950 UNITS AT ~1800. HR 80'S. SBP 130'S. MAP >65. SPO2 99% ON RA. PICC DANITA SALINE LOCK.
--- NOTE | 2022-05-26 19:15 | NUR ---
ASSUMED CARE OF PT @1900. PT IS A&O X4. PT IS USING OWN INSULIN PUMP TO ADMINISTER INSULIN BOLUS. GAVE 4.950 UNITS AT ~1800. HR 80'S. SBP 130'S. MAP >65. SPO2 99% ON RA. PG DANITA SALINE LOCK.
--- NOTE | 2022-05-26 20:30 | NUR ---
PT IS GIVING HIS OWN INSULIN BOLUS NEEDED. ADDITIONAL COVERAGE PER DR BURDEN IF CBG IS >250 PER SLIDING SCALE. PT WILL NOTIFY US WHEN/AMOUNT OF INSULIN BOLUS. PT DID NOT WANT TO GIVE ADDITIONAL INSULIN @1999 CHECK BUT WILL MONITOR HIS DEXACOM DUE TO HIS BG DROPPING DURING THE NIGHT.
--- NOTE | 2022-05-27 02:45 | NUR ---
PT STATES HE IS PAINFUL AND NAUSEOUS. ZOFRAN AND OXYCODONE GIVEN. PT STATES HIS DEXACOM WAS SHOWING BG OF 355. PT GAVE HIMSELF A BOLUS VIA INSULIN PUMP OF 4.6.
[2022-05-27 03:46] LABS: BASOPHILS ABSOLUTE AUTO 0.06 K/mm3 (0.00-0.23); BASOPHILS PERCENT AUTO 1 % (0-2); EOSINOPHILS ABSOLUTE AUTO 0.21 K/mm3 (0.00-0.68); EOSINOPHILS PERCENT AUTO 3 % (0-6); Hematocrit 30.6 % (37.0-53.0); Hemoglobin 10.7 g/dL (13.5-17.5); IMMATURE GRAN ABSOLUTE AUTO 0.01 K/mm3 (0.00-0.10); IMMATURE GRAN PERCENT AUTO 0 % (0-1); LYMPHOCYTES ABSOLUTE AUTO 1.76 K/mm3 (0.84-5.20); LYMPHOCYTES PERCENT AUTO 23 % (21-46); MONOCYTES ABSOLUTE AUTO 0.55 K/mm3 (0.16-1.47); MONOCYTES PERCENT AUTO 7 % (4-13); Mean Corpuscular HGB 31.1 pg (26.0-34.0); Mean Corpuscular Volume 89 fL (80-100); Mean Platelet Volume 9.7 fL (9.1-12.4); NEUTROPHILS ABSOLUTE AUTO 5.22 K/mm3 (1.96-9.15); NEUTROPHILS PERCENT AUTO 67 % (41-73); Platelet Count 234 K/mm3 (150-400); RDW Coefficient Variation 12.7 % (11.7-14.2); RDW Standard Deviation 41.6 fL (35.1-46.3); Red Blood Cell Count 3.44 M/mm3 (4.30-5.90); White Blood Cell Count 7.81 K/mm3 (4.00-11.30)
--- NOTE | 2022-05-27 04:02 | NUR ---
PT DESATING INTO LOW 80'S AFTER PAIN MEDICATION. A&O. O2 @2L/MIN VIA NC.
[2022-05-27 04:04] LABS: Albumin, Blood 3.3 g/dL (3.4-5.0); Anion Gap 13 mmol/L (6-16); Blood Urea Nitrogen 18 mg/dL (8-24); Bun/Creatinine Ratio 20.9 (12.0-20.0); CO2, Blood 19 mmol/L (21-32); Calcium, Blood 8.9 mg/dL (8.5-10.1); Chloride, Blood 105 mmol/L (98-108); Creatinine, Blood 0.86 mg/dL (0.60-1.20); Glomerular Filtration Rate 105 (60-); Glucose, Blood 266 mg/dL (70-99); Magnesium, Blood 1.7 mg/dL (1.6-2.4); Phosphorus, Blood 1.6 mg/dL (2.5-4.9); Potassium, Blood 3.3 mmol/L (3.5-5.5); Sodium, Blood 137 mmol/L (136-145)
--- NOTE | 2022-05-27 05:30 | NUR ---
PT TRANSFERRED TO PCU 15. REPORT GIVEN TO CLAIRE Solis RN. SHIFT SUMMARY: NEURO/PSYCH/MOBILITY: PT A&O X4 THROUGHOUT SHIFT. PT ABLE TO MOVE INDEPENDENTLY IN BED AND USE URINAL. PT USES CALL LIGHT APPROPRIATELY. PT HAS CHRONIC ABDOMINAL PAIN FROM HISTORY OF GASTROPARESIS. TREATED WITH PRN PAIN MEDICATIONS. TMAX OF 99.3. PERRL. RESP: PT LUNG REYNOLDS CLEAR THROUGHOUT. DESATS INTO 80'S AFTER PAIN MEDICATIONS. 2L O2 VIA NC. RR 12-16. SPO2 >94%. CARDIAC: CONTINUOUS CARDIAC MONITORING. PT HAS A HX OF HTN. SBP STABLE 130-140'S UNTIL 0400 VS. SLIGHT INCREASE INTO 160'S. PT IS COMPLAINING OF PAIN AND NAUSEA. HR 80-90'S. GI: PT COMPLAINED OF NAUSEA EARLY THIS AM. SMALL AMOUNT OF LIQUID IN EMESIS BAG. TREATED WITH PRN ZOFRAN. ABDOMINAL PAIN TREATED WITH PRN PAIN MEDICATIONS. NO BM THIS SHIFT. : PT VOIDING INDEPENDENTLY DARK YELLOW URINE IN URINAL. SKIN: ASSESSMENT REMAINS UNCHANGED. PG SALINE LOCK IN DANITA. ENDO: PT MONITORED ON OWN DEXACOM AND HOSPITAL GLUCOMETER. BOLUSING INSULIN PRN FROM OWN INSULIN PUMP. COVERAGE INDICATED FOR HUMULOG ON CBG >250 ON Q4H GLUCOSE CHECKS. NURSE NOTIFY IN CHART.
--- NOTE | 2022-05-27 06:14 | NUR ---
PT TRANSFERRED FROM ICU, REPORT RECIEVED FROM MELANIA JAVED. PT LYING IN BED WITH EMESIS BAG, STATES HE FEELS NAUSEOUS. STATES THIS IS NOT A "NEW THING. PT RESPONDING TO QUESTIONS APPROPRIATELY. PT ALERT AND ORIENTED X4. VS; ST WITH HR OF 110, O2 100% ON RA, SBP 180/121. PT DRY HEAVING AND COUGHING WHILE TAKING BP. PT NOT ABLE TO RELAX FOR BP READING. MEDICATED FOR NAUSEA PER EMAR. PT TRANSFERRED TO PCU BED VIA SLIDER SHEET. BELONGINGS WITH PT. PT DEXCOM WITH PT AT BEDSIDE. PT ORIENTED TO ROOM. K-PHOS INFUSING PER EMAR. PT RESTING IN BED WITH CALL LIGHT IN REACH. WILL REPORT TO IRVING JAVED.
--- NOTE | 2022-05-27 17:52 | NUR ---
PT SUMMARY: PT ALERT AND ORIENTED X4 VITALS HRR SR 70-90'S, TACHS UP WITH PAIN, BP SYSTOLIC 130'S ALSO GETS ELEVATED WITH PAIN, ON RA, AFEBRILE. NAUSEA AND PAIN MANAGED WITH MEDS PER EMAR. BLOOD SUGAR 170-220'S FOR THE SHIFT INSULIN PUMP ONGOING MANAGED BY PT, WAS INSTRUCTED BY PROVIDER TO BOLUS Q2HRS, INSULIN VIAL WAS REPLACED/REFILLED FOR THE SHIFT PT WAS ASSISTED PLACED ON LEFT LOWER SIDE OF THE ABDOMEN. CHRONIC ABD PAIN DUE TO GASTROPARESIS PT REFUSED MEALS FOR THE SHIFT HAS BEEN DRINKING CLEAR ENSURE AND ICE CHIPS MOSTLY. INDEPENDENT IN THE ROOM, DENIES ANY OTHER COMPLAINS. CALLS APPROPRIATELY, WILL REPORT TO ONCOMING SHIFT
--- NOTE | 2022-05-27 19:08 | NUR ---
PT CAUGHT IN THE CAMERA SNIFFING A CRUSHED MEDICINE IN THE COUNTER TABLE IN THE ROOM. SHANNAN TENTS ASSEMBLER WAS NOTIFIED AND WAS ABLE TO TALK TO THE PT ABOUT IT, PT REPORTED IT WAS AN ASPIRIN. PT WAS WARNED TO NOT USE ANY NON PRESCRIBED MEDICATION DURING THE HOSPITAL STAY AND PT AGREED AND UNDERSTAND THE POLICY. NO OTHER ISSUES REPORTED. WILL MONITOR
--- NOTE | 2022-05-28 05:38 | NUR ---
SHIFT SUMMARY PT A&O X4, RESPONDING APPROPRIATELY AND ABLE TO MAKE NEEDS KNOWN. VSS. REPORTS SEVERE ABDOMINAL PAIN; 6-02/11. MEDICATED PER EMAR. PT'S PAIN SEEMED TO SUBSIDE AND HE WAS ABLE TO REST. CBG STABLE; NO COVERAGE NEEDED. PT UP TO BATHROOM INDEPENDENTLY; VOIDED 400 ML. NO BM PASSED DURING SHIFT. NO ACUTE CHANGES. CALL LIGHT IN REACH AND PT CURRENTLY RESTING IN BED
[2022-05-28 08:39] LABS: Potassium, Blood 3.4 mmol/L (3.5-5.5)
[2022-05-28] MEDS ORDERED: METO25 PO (10:36)
--- NOTE | 2022-05-28 10:56 | NUR ---
PT DISCHARGED TO HOME WITH DISCHARGE ORDERS, NEW MEDICATION AND DISCHARGE INSTRUCTIONS DISCLOSED WITH THE PT. PT VERBALIZED UNDERSTANDING. PT HAS BEEN INDEPENDENT IN THE ROOM HAD A SHOWER THIS MORNING, AMBULATED IN THE LYN WITH NO ISSUES. VITALS HAS BEEN STABLE, BLOOD SUGARS <200 NO BOLUS PER SLIDING SCALE COVERAGE WAS ADMINISTERED. INUSULIN PUMP IN PLACE AND WORKING, PT ABLE TO MANAGE. TOLERATED BREAKFAST WITH NO ISSUES, MEDICATED WITH PO OXYCODONE 10MG AND WAS EFFECTIVE. CAME TO COMPLAINT OPERATOR PT, ALL BELONGINGS SENT WITH THE PT
== END 2022-05-28 10:52 | disposition home or self-care (01) | DRG 639 ==
LOC: ER 09:45 → ICUW 12:03 → PCU 12:03 → ICUW 13:14 → PCU 05-27 05:53
PROVIDERS: Family Medicine; Internal Medicine; Physician Assistant; Student in an Organized Health Care Education/Training Program; ADMIT Family Medicine
DX: E10.10 Type 1 diabetes mellitus with ketoacidosis without coma (principal); Z20.822 Contact with and (suspected) exposure to COVID-19; E10.43 Type 1 diabetes mellitus with diabetic autonomic (poly)neuropathy; E10.40 Type 1 diabetes mellitus with diabetic neuropathy, unspecified; I10 Essential (primary) hypertension; K31.84 Gastroparesis; E87.6 Hypokalemia; F32.A Depression, unspecified; R94.31 Abnormal electrocardiogram [ECG] [EKG]; Z98.890 Other specified postprocedural states; Z88.5 Allergy status to narcotic agent; Z88.8 Allergy status to other drugs, medicaments and biological substances; Z79.899 Other long term (current) drug therapy
CPT/HCPCS: 0241U; 71045; 80053; 80069; 82010; 82803; 82947; 83036; 83735; 84100; 84132; 85025; 93005; 93010; 96361; 96374; 96375; 96376; 99284-25; A9270; C1751; G0480; J0360; J1170; J1644; J1790; J1815; J2270; J2405; J2765; J3480; J7030; J7040; J7042; J7050; J7060

== ENCOUNTER 2022-08-25 11:45 | Inpatient (IN) | payer MEDICARE, OTHER ==
[~2022-08-25] VITALS: Ht 188 cm; Wt 71.3 kg
[~2022-08-25 11:45] MED LIST changes: +METO25 PO
[2022-08-25 13:40] LABS: Calcium, Ionized (POC) 1.11 mmol/L (1.10-1.46); Chloride (POC) 98 mmol/L (98-108); Creatinine (POC) 1.9 mg/dL (0.8-1.3); Glucose (ISTAT POC) 607 mg/dL (70-99); Hemoglobin (POC) 14.3 g/dL (13.5-17.5); Potassium (POC) 5.5 mmol/L (3.5-5.5); Sodium (POC) 122 mmol/L (135-148); Total CO2 (POC) 9 mmol/L (21-32)
[2022-08-25 13:45] LABS: BASOPHILS ABSOLUTE AUTO 0.04 K/mm3 (0.00-0.23); BASOPHILS PERCENT AUTO 0 % (0-2); EOSINOPHILS PERCENT AUTO 0 % (0-6); Hemoglobin 12.8 g/dL (13.5-17.5); IMMATURE GRAN PERCENT AUTO 1 % (0-1); LYMPHOCYTES ABSOLUTE AUTO 1.05 K/mm3 (0.84-5.20); LYMPHOCYTES PERCENT AUTO 4 % (21-46); MONOCYTES ABSOLUTE AUTO 1.46 K/mm3 (0.16-1.47); MONOCYTES PERCENT AUTO 6 % (4-13); Mean Corpuscular HGB Conc 33.7 g/dL (31.5-36.5); Mean Corpuscular Volume 95 fL (80-100); Mean Platelet Volume 10.2 fL (9.1-12.4); NEUTROPHILS ABSOLUTE AUTO 21.32 K/mm3 (1.96-9.15); NEUTROPHILS PERCENT AUTO 89 % (41-73); Platelet Count 338 K/mm3 (150-400); RDW Coefficient Variation 12.6 % (11.7-14.2); RDW Standard Deviation 44.7 fL (35.1-46.3); White Blood Cell Count 24.07 K/mm3 (4.00-11.30)
[2022-08-25 13:54] LABS: Base Excess Venous -22.3 mmol/L; Bicarbonate Venous 10.1 mmol/L (24.0-30.0); PCO2 Venous 18.7 mmHg (38-42); pH Blood Venous 7.15 (7.34-7.37)
[2022-08-25 14:19] LABS: Albumin, Blood 4.8 g/dL (3.4-5.0); Albumin/Globulin Ratio 1.1 (0.8-1.8); Beta-hydroxybutyrate 101.4 mg/dL (0.2-2.8); Bilirubin, Total 1.6 mg/dL (0.1-1.0); Bun/Creatinine Ratio 28.7 (12.0-20.0); Calcium, Blood 9.3 mg/dL (8.5-10.1); Creatinine, Blood 1.64 mg/dL (0.60-1.20); Globulin, Blood 4.5 g/dL (2.2-4.0); Potassium, Blood 5.3 mmol/L (3.5-5.5); Total Protein, Blood 9.3 g/dL (6.4-8.2)
[2022-08-25] MEDS ORDERED: HUMALOG100 UNIT/1 SC (16:06)
[2022-08-25] MEDS ORDERED: GABAPENTIN600 MG PO (16:06)
[2022-08-25] MEDS ORDERED: OXYC10TA19 PO (16:11)
[2022-08-25 16:54] LABS: Bun/Creatinine Ratio 33.8 (12.0-20.0); Calcium, Blood 8.3 mg/dL (8.5-10.1); Creatinine, Blood 1.54 mg/dL (0.60-1.20); Potassium, Blood 4.4 mmol/L (3.5-5.5)
[2022-08-25 17:47] LABS: Bicarbonate Venous 13.3 mmol/L (24.0-30.0); PCO2 Venous 17.3 mmHg (38-42); pH Blood Venous 7.33 (7.34-7.37)
[2022-08-25 17:52] LABS: Glucose, Blood 506 mg/dL (70-99)
--- NOTE | 2022-08-25 19:11 | NUR ---
Pt arrived to unit at 1553, alert and oriented, on room air. at bedside. Isulin infusing at 6.8 units/hr. Pt given anti-emetics for N/V, see EMAR. Pain medication administered for severe abdominal pain related to gastroparesis and past surgical history, see EMAR for details. Insulin titrated down to 4 units/hr currently for BG levels, see labs. Pt tachycardic and hypertensive d/t pain and nausea. All other vitals stable. Report given to oncoming RN.
--- NOTE | 2022-08-25 19:47 | NUR ---
ASSUMED CARE PT IS A&O X4. SPO2 >92% ON RA; MAP >65. SBP IN THE 170-180'S. PT HAS C/O OF 9-10/10 PAIN. INSULIN GTT AT 4UNITS/HR.
[2022-08-25 20:54] LABS: Bun/Creatinine Ratio 34.8 (12.0-20.0); Calcium, Blood 8.9 mg/dL (8.5-10.1); Creatinine, Blood 1.55 mg/dL (0.60-1.20); Potassium, Blood 3.8 mmol/L (3.5-5.5)
--- NOTE | 2022-08-25 22:53 | NUR ---
UPDATE HOSPITALIST CALLED FOR D5 ORDER PER PROTOCOL. SECOND CALL MADE FOR PT'S HYPERTENSION. PT IS MORE CONFUSED THAN ASSUMPTION OF CARE AND DOES NOT GIVE CLEAR ANSWERS. WAS ATTEMPTING TO PULL CORDS OUT OF MONITOR. DRANK FROM URINAL AFTER HANDING THE PT THE URINAL WHEN PT STATED HE NEEDED TO PEE.
[2022-08-26 01:29] LABS: Bun/Creatinine Ratio 36.4 (12.0-20.0); Calcium, Blood 8.7 mg/dL (8.5-10.1); Creatinine, Blood 1.32 mg/dL (0.60-1.20); Potassium, Blood 3.5 mmol/L (3.5-5.5)
[2022-08-26 05:26] LABS: BASOPHILS ABSOLUTE AUTO 0.04 K/mm3 (0.00-0.23); BASOPHILS PERCENT AUTO 0 % (0-2); EOSINOPHILS PERCENT AUTO 0 % (0-6); Hematocrit 31.7 % (37.0-53.0); Hemoglobin 11.9 g/dL (13.5-17.5); IMMATURE GRAN PERCENT AUTO 1 % (0-1); LYMPHOCYTES ABSOLUTE AUTO 1.23 K/mm3 (0.84-5.20); LYMPHOCYTES PERCENT AUTO 5 % (21-46); MONOCYTES ABSOLUTE AUTO 1.59 K/mm3 (0.16-1.47); MONOCYTES PERCENT AUTO 7 % (4-13); Mean Corpuscular HGB 32.2 pg (26.0-34.0); Mean Corpuscular HGB Conc 37.5 g/dL (31.5-36.5); Mean Platelet Volume 9.3 fL (9.1-12.4); NEUTROPHILS ABSOLUTE AUTO 19.97 K/mm3 (1.96-9.15); NEUTROPHILS PERCENT AUTO 87 % (41-73); Platelet Count 279 K/mm3 (150-400); RDW Coefficient Variation 12.1 % (11.7-14.2); RDW Standard Deviation 38.3 fL (35.1-46.3); Red Blood Cell Count 3.69 M/mm3 (4.30-5.90); White Blood Cell Count 23.03 K/mm3 (4.00-11.30)
[2022-08-26 05:31] LABS: Mean Corpuscular Volume 86 fL (80-100)
--- NOTE | 2022-08-26 05:44 | NUR ---
SHIFT SUMMARY PT IS A&O X2-3 W/ INCONSISTENCIES IN ANSWERING ORIENTATION QUESTIONS. PT IS GASPING WHEN IN ROOM AND DOES NOT ARTICULATE WELL. PAIN CONTROL HAS BEEN DIFFICULT. PT ASKED AN UNUSUAL QUESTION, "DO YOU SEE THAT MIRROR?", AND WHEN ASKED WHAT ABOUT THE MIRROR HE WOULD STATE "IT'S PERMANENT.". PT ALSO SPILLED URINAL TWICE AND WAS SEEN STANDING UP AT MONITOR PULLING AT WIRES ONCE. INSULIN GTT INFUSING AT 3UNITS/HR W/ D5 1/2NS @ 200MLS/HR. NO OTHER ACUTE EVENTS SINCE LAST NOTE.
[2022-08-26 05:46] LABS: Albumin, Blood 3.8 g/dL (3.4-5.0); Bilirubin, Total 1.8 mg/dL (0.1-1.0); Bun/Creatinine Ratio 33.1 (12.0-20.0); Creatinine, Blood 1.18 mg/dL (0.60-1.20); Potassium, Blood 3.1 mmol/L (3.5-5.5); Total Protein, Blood 7.8 g/dL (6.4-8.2)
[2022-08-26 10:28] LABS: Base Excess Venous -8.1 mmol/L; Bicarbonate Venous 18.9 mmol/L (24.0-30.0); PCO2 Venous 26.1 mmHg (38-42); pH Blood Venous 7.41 (7.34-7.37)
[2022-08-26 10:50] LABS: Bun/Creatinine Ratio 31.4 (12.0-20.0); Calcium, Blood 8.1 mg/dL (8.5-10.1); Creatinine, Blood 1.02 mg/dL (0.60-1.20); Potassium, Blood 3.4 mmol/L (3.5-5.5)
[2022-08-26 13:15] LABS: Source, Urine Clean Catch
[2022-08-26 13:21] LABS: Appearance, Urine Clear (Clear); Bilirubin, Urine Neg (Neg); Blood, Urine 1+ (Neg); Color, Urine Yellow (P-Yellow); Glucose Qualitative, Urine 2+ (Neg); Ketones, Urine 2+ (Neg); Leukocyte Esterase, Urine Neg (Neg); Nitrite, Urine Neg (Neg); Protein, Urine 3+ (Neg); Urobilinogen, Urine NORM (Normal)
[2022-08-26 13:39] LABS: Bacteria Few /hpf; Red Blood Cells, Urine 0-2 /hpf (0-2); Squamous Epithelial Cells Not Seen /hpf (Few); White Blood Cells, Urine 0-2 /hpf (0-5)
--- NOTE | 2022-08-26 18:42 | NUR ---
Shift summary. Pt continues to improve slowly throughout shift. Mentation improved, pt oriented to self/surroundings/event. Pain improved with PO pain meds, see EMAR. Pt able to tolerate PO medications but still nauseous. IV infiltrated this am, see vascular assessment for note. Straight cath urine sample obtained for UA order. Vital signs stable, see shift assessment for further details, will continue to monitor and report off to oncoming RN.
--- NOTE | 2022-08-26 21:42 | NUR ---
ASSUMED CARE PT IS A&O X4; SPO2 >92% ON RA; MAP >65 W/ SBP IN THE 130-140'S. PT STATES HE FEELS MUCH BETTER WITH MINIMAL NAUSEA AND THAT PAIN IS MUCH MORE CONTROLLED. GASPING NO LONGER PRESENT. NON-PRODUCTIVE COUGH. NO C/O OF CP, SOB, NUMBNESS, OR TINGLING. SAYS MILD SOB FROM COUGHING.
[2022-08-27 04:46] LABS: BASOPHILS ABSOLUTE AUTO 0.01 K/mm3 (0.00-0.23); BASOPHILS PERCENT AUTO 0 % (0-2); EOSINOPHILS ABSOLUTE AUTO 0.01 K/mm3 (0.00-0.68); EOSINOPHILS PERCENT AUTO 0 % (0-6); Hematocrit 29.5 % (37.0-53.0); Hemoglobin 10.5 g/dL (13.5-17.5); IMMATURE GRAN ABSOLUTE AUTO 0.04 K/mm3 (0.00-0.10); IMMATURE GRAN PERCENT AUTO 0 % (0-1); LYMPHOCYTES PERCENT AUTO 10 % (21-46); MONOCYTES ABSOLUTE AUTO 1.03 K/mm3 (0.16-1.47); MONOCYTES PERCENT AUTO 10 % (4-13); Mean Corpuscular HGB 31.9 pg (26.0-34.0); Mean Corpuscular HGB Conc 35.6 g/dL (31.5-36.5); Mean Corpuscular Volume 90 fL (80-100); Mean Platelet Volume 9.7 fL (9.1-12.4); NEUTROPHILS PERCENT AUTO 79 % (41-73); Platelet Count 221 K/mm3 (150-400); RDW Coefficient Variation 12.7 % (11.7-14.2); RDW Standard Deviation 41.6 fL (35.1-46.3); Red Blood Cell Count 3.29 M/mm3 (4.30-5.90); White Blood Cell Count 9.89 K/mm3 (4.00-11.30)
[2022-08-27 05:01] LABS: Calcium, Blood 7.9 mg/dL (8.5-10.1); Creatinine, Blood 0.94 mg/dL (0.60-1.20); Potassium, Blood 3.6 mmol/L (3.5-5.5)
--- NOTE | 2022-08-27 05:40 | NUR ---
SHIFT SUMMARY PT IS A&O X4; SPO2 >92% ON RA; MAP >65. INSULIN GTT @ 2UNITS/HR;D5 1/2NS 200MLS. NO ACUTE CHANGES SINCE ASSUMED CARE NOTE. PAIN HAS BEEN WELL CONTROLLED THIS SHIFT AND PT RESTED COMFORTABLY. NO C/O OF CP, SOB, NAUSEA, NUMBNESS, OR TINGLING. HAS BEEN COUGHING LESS THAN EARLIER IN THE NIGHT.
--- NOTE | 2022-08-27 08:00 | NUR ---
PT A&OX4-REPORTS 7/10 ABDOMINAL PAIN. MED WITH MORPHINE IV-SEE EMAR. TEMP 99.3. ECG SHOWS SR TO ST WITH RATE 90-100'S. SBP 160-170'S-SCHEDULED METOPROLOL GIVEN. LUNGS CLEAR. NO NOTED SOB. SATS>90% ON RA. PT APPEARS EMACACIATED AND ORAL MUCOSA IS VERY DRY. PT REPORTS INTERMITTENT NAUSEA. PT TOLERATING SIPS OF WATER WITH MEDS. CBG 203-INSULIN DRIP INCREASED TO 3 UNITS/HR. D5 1/2 NS @ 200 CC/HR. ACCU CHECK EVERY 2 HOURS. SKIN IS PALE, BUT OVERALL C/D/I. PLAN TO INITIATE CLEAR LIQUID DIET AND TRANSITION OFF OF INSULIN DRIP. PT HAS CGM AND INSULIN PUMP-HE IS UNCERTAIN IF THE DAILY DELIVERY DOSE IS 50 OR 75 UNITS. PT TO ATTEMPT TO REVIEW SETTINGS ON HIS PUMP AND PROVIDE MD WITH HOME REGIME. PT SPOUSE IS VERY AWARE OF PT MEDICATION REGIME AND IF PT IS UNABLE TO OBTAIN THE INFO-WILL CONTACT PT SPOUSE FOR THIS INFO. ANTICIPATE STATUS CHANGE LATER TODAY ONCE PT TRANSITIONED OFF OF INSULIN DRIP.
--- NOTE | 2022-08-27 10:00 | NUR ---
PT CONTINUES TO REPORT ABDOMINAL PAIN- 02/11 MED WITH OXYCODONE 10 MG PO-SEE EMAR. CBG 166-INSULIN DRIP DECREASED TO 2 UNITS/HR.
--- NOTE | 2022-08-27 12:00 | NUR ---
PT REPORTS PAIN 5/10 TO ABDOMEN. PT VEBALIZING HIS CONCERN AND FRUSTRATION REGARDING AN ENCOUNTER THAT TOOK PLACE WHILE DR. AMAYA WAS DOING ROUNDS. PT APPEARED VERY ANXIOUS AND UPSET BY THIS. RACHELLE ARENAS WAS PRESENT DURING THE ENCOUNTER. DRIER TENDER RONDA MADE AWARE OF THE SITUATION. CBG 180-INSULIN DRIP @ 2 UNITS/HR. PT OFFERED CLEAR LIQUID DIET. PT REQUESTS A [place] FLAVORED, CLEAR ENSURE. REQUEST GRANTED. PT POSITIONING HIMSELF IN BED-CALL LIGHT IN REACH.
--- NOTE | 2022-08-27 13:02 | NUR ---
Upon receiving a referral for spiritual care, I visit the patient. The patient immediately tells me about his family (, 1 dtr & 3 sons), about his Chirstian ayana and about his career in [employer]. He then tells the long story of his medical issues and the pain, limitations and surgeries that have encompassed his life for the 15 years. While we were talking, Dr. Boyle came into pt's rm to perform his rounding with pt. He started talking about the medical direction he felt like the patient should go in terms of managing the DKA and to begin process of eating solid foods. Patient immediately became intense in his face and voice volume. After a few challenging moments both parties regrouped and took another try at communicating and worked it out well. I resumed a short conversation with patient and provided prayer for him before abruptly needing to respond to a Code Blue.
--- NOTE | 2022-08-27 13:35 | NUR ---
PT REPORTS 7/10 ABDOMINAL PAIN AND NAUSEA-MED WITH ZOFRAN 4 MG IVP X 1. PT SPOUSE AT BEDSIDE. UPDATE GIVEN.
--- NOTE | 2022-08-27 16:00 | NUR ---
PT CONTINUES TO REPORTS ABDOMINAL PAIN-CURRENTLY 02/11. PT MEDICATED WITH FENTANYL 50 MCG IVP X 1-SEE EMAR. PT DENIES NAUSEA. FRESH WATER, JELLO, AND CHICKEN BROTH PROVIDED. PT ENCOURAGED TO SIP ON THESE CLEAR LIQUIDS TOLERATED. CBG 172-INSULIN DRIP INCREASED TO 2 UNITS/ HR. PT HAS OCCASIONAL LOOSE COUGH-PRODUCTIVE OF MODERATE AMOUNT OF CLEAR SPUTUM. LUNGS WITH COARSE RHONCHI TO UPPER LOBES THAT CLEAR WITH COUGH. MAINTAINS SATS>90% ON RA. NO NOTED SOB. PT REPOSITIONING HIMSELF IN BED. CALL LIGHT WITHIN REACH. PT COMMUNICATING NEEDS WELL.
--- NOTE | 2022-08-27 17:09 | NUR ---
PT RESUMED INSULIN PUMP PER HOME REGIME. DEXCOM CALIBERATED PER MOST RECENT FINGER STICK OF 172. PT SIPPING ON CLEAR LIQUIDS AND DENIES NAUSEA AT THIS TIME.
--- NOTE | 2022-08-27 18:08 | NUR ---
PT INSULIN PUMP INFUSING @ BASAL RATE OF 0.475 UNITS/HR-SEE EMAR. PT TOLERATING SIPS OF CLEAR LIQUID DIET. NO REPORT OF NAUSEA. PT REPORTS 7/10 ABDOMINAL PAIN-MED WITH OXYCODONE 10 MG PO-SEE EMAR. NEXT ACCU CHECK @ 2000.
--- NOTE | 2022-08-27 19:15 | NUR ---
ASSUMED CARE OF PT @1900 FROM NICOLE JAVED. BEDSIDE REPORT. PT SO AT BEDSIDE. PT IS A&O X4. PLEASANT AND COOPERATIVE W/CARE. PG DANITA PATENT. PT USING BEDSIDE URINAL INDEPENDENTLY AND REPOSITIONING SELF. BED IN LOW POSITION. CALL LIGHT IN REACH.
--- NOTE | 2022-08-28 | NUR ---
UPDATE: PT'S DEXCOM READINGS ARE CONSISTANTLY HIGHER THAN GLUCOMETER. WILL CONTINUE W/Q4HR CBG'S.
[2022-08-28 04:24] LABS: BASOPHILS ABSOLUTE AUTO 0.02 K/mm3 (0.00-0.23); BASOPHILS PERCENT AUTO 0 % (0-2); EOSINOPHILS ABSOLUTE AUTO 0.05 K/mm3 (0.00-0.68); EOSINOPHILS PERCENT AUTO 1 % (0-6); Hematocrit 27.2 % (37.0-53.0); Hemoglobin 9.9 g/dL (13.5-17.5); IMMATURE GRAN ABSOLUTE AUTO 0.03 K/mm3 (0.00-0.10); IMMATURE GRAN PERCENT AUTO 0 % (0-1); LYMPHOCYTES ABSOLUTE AUTO 1.02 K/mm3 (0.84-5.20); LYMPHOCYTES PERCENT AUTO 14 % (21-46); MONOCYTES PERCENT AUTO 12 % (4-13); Mean Corpuscular HGB 32.5 pg (26.0-34.0); Mean Corpuscular HGB Conc 36.4 g/dL (31.5-36.5); Mean Corpuscular Volume 89 fL (80-100); NEUTROPHILS ABSOLUTE AUTO 5.51 K/mm3 (1.96-9.15); NEUTROPHILS PERCENT AUTO 73 % (41-73); Platelet Count 197 K/mm3 (150-400); RDW Coefficient Variation 12.5 % (11.7-14.2); RDW Standard Deviation 40.3 fL (35.1-46.3); Red Blood Cell Count 3.05 M/mm3 (4.30-5.90); White Blood Cell Count 7.53 K/mm3 (4.00-11.30)
[2022-08-28 05:00] LABS: Albumin, Blood 2.6 g/dL (3.4-5.0); Albumin/Globulin Ratio 0.7 (0.8-1.8); Bilirubin, Total 1.1 mg/dL (0.1-1.0); Bun/Creatinine Ratio 11.8 (12.0-20.0); Calcium, Blood 7.9 mg/dL (8.5-10.1); Creatinine, Blood 0.93 mg/dL (0.60-1.20); Globulin, Blood 3.5 g/dL (2.2-4.0); Potassium, Blood 3.5 mmol/L (3.5-5.5); Total Protein, Blood 6.1 g/dL (6.4-8.2)
--- NOTE | 2022-08-28 05:49 | NUR ---
SUMMARY: NEURO/PSYCH/MOBILITY: PT IS A&O X4 WHEN AWAKE. ABLE TO MAKE NEEDS KNOWN AND COOPERATIVE W/CARE. PT HAS HAD 7-8/10 ABDOMINAL PAIN MOST OF THE NIGHT THAT HAS BEEN TREATED W/PRN FENTANYL AND OXYCODONE W/SOME RELIEF. PT ABLE TO EAT, DRINK, AND REPOSITION SELF INDEPENDENTLY. TMAX 99.6. PERRL. RESP: PT HAS OCCASIONAL PRODUCTIVE COUGH. LUNGS ARE COARSE THROUGHOUT W/EXPIRATORY WHEEZE ON RIGHT. RHONCI THAT CLEAR W/COUGH. PT DENIES SHORTNESS OF BREATH BUT FEELS "CONGESTED." RR <20, SPO2 >94% ON RA. CARDIAC: HR NSR 70-80'S. OCCASIONAL ST 100-110'S WHEN PT IS SEVERE PAIN. SBP INCREASED W/SEVERE PAIN OTHERWISE STABLE. GI: PT HAD INTERMITTENT NAUSEA THROUGHOUT NIGHT. PRN ZOFRAN GIVEN. PT DRINKING WATER AND A SMALL AMOUNT OF DECAF TEA. NO BM THIS SHIFT. : PT USING BEDSIDE URINAL INDEPENDENTY NEEDED. NO COMPLAINTS OF DIFFICULTY OR PAIN. SKIN: ASSESSMENT REMAINS UNCHANGED. CBG: PT HAS RECALIBRATED DEXCOM MULTIPLE TIMES. GLUCOMETER READINGS HAVE BEEN CONSISTENTLY LOWER AND MATCH WITH VENOUS DRAWS SENT TO THE LAB. PT DOSING INSULIN OFF GLUCOMETER/LAB RESULTS. IV ACCESS: PG DANITA PATENT W/SALINE LOCK
--- NOTE | 2022-08-28 07:35 | NUR ---
PT A&OX4. PT REPORTS 7/10 ABDOMINAL PAIN AND NAUSEA THIS AM. PT APPEARS ANXIOUS. MED WITH FENTANYL AND OXYCODONE FOR PAIN AND ZOFRAN FOR NAUESA-SEE EMAR. ECH SHOWS SR WITH RATE 90'S. SBP 180'S WITH PAIN AND AGITATION-TOPROL SCHEDULED DOSE GIVEN. LUNGS COARSE TO UPPER LOBES THAT CLEAR SOMEWHAT WITH COUGH. FREQUENT, LOOSE COUGH-OCCASIONALLY PRODUCTIVE OF MODERATE AMOUNT OF THICK, CLEAR SECRETIONS. SATS>90% ON RA. NO NOTE SOB. ACCU CHECK 351 VS. DEXCOM 356-INSULIN PUMP CONTINUES @ 0.475 UNITS/HR. PT REQUESTED FRESH ICE WATER AND BLACK TEA. REQUEST GRANTED. PT ASSISTED WITH AM CARE. PT DECLINES BATHING AT THIS TIME. PT VOIDS ADEQUATE AMOUNT OF YELLOW URINE VIA URINAL. CALL LIGHT IN REACH. PT UTILIZES CALL LIGHT AND COMMUNICATES HIS NEEDS EFFECTIVELY.
--- NOTE | 2022-08-28 11:59 | NUR ---
PT REPORTS 01/12 ABDOMINAL PAIN-MED WITH OXYCODONE AND FENTANYL-SEE EMAR. PT STATES THAT WHENEVER HE CONSUMES FOOD OR DRINK BESIDES WATER, HIS THROAT/ESOPHAGUS "CHRISTINA." DR. BELL UPDATED AND GI COCKTAIL ORDERS. SBP TRENDING 170'S WITH PAIN/AGITATION. PT NOW MED-TELE STATUS. WILL CONTINUE TO MONITOR. ACCU CHECK 227 VS DEXCOM 265-PT CALIBRATED ACCORDINGLY.PT ADVOCATE IN FOR VISIT AND FOLLOW UP FROM YESTERDAY.
--- NOTE | 2022-08-28 13:56 | NUR ---
PT STATES THAT HE IS "FEELING BETTER NOW." PT OFF OF TELE TO BRUSH HIS TEETH-TOLERATED WELL. PT AMBULATED TO SHOWER INDENPENDENTLY AND ABLE TO SHOWER WITHOUT ASSIST. PT STATES THAT HE FELT THAT THE GI COCKTAIL WAS HELPFUL.
--- NOTE | 2022-08-28 15:06 | NUR ---
RESPIRATORY PANEL SENT. VSS. PT DENIES NAUSEA AT PRESENT. PT REPORTS ABDOMINAL PAIN 5/10. VS STABLE. SPO2 100% ON RA. LUNGS CONTINUE WITH SCATTERED COARSE RHONCHI THAT CLEAR SOMEWHAT WITH COUGH. NO NOTED SOB. CALL LIGHT WITHIN REACH. PT COMMUNICATING NEEDS WELL.
--- NOTE | 2022-08-28 16:17 | NUR ---
Patient is lying in bed and in much better spirits than how my visit ended yesterday. He states that he is very thankful for his new doctor and for how the staff in ICU have maintained an exceptional level of care. He shares further about the hobbies, interests and spiritual pursuits that feed his soul and aliven his senses. He is quick to move the conversation to the deeper things that matter but still expressing great passion and maggi for life, the people in [place] and the causes that are close to his heart. I reinforce helpful attitudes and practices and provide therapeutic listening, levity and prayer. Patient responded well and showed signs of an elevated mood. I will continue to remain available to patient and family.
[2022-08-28 16:21] LABS: Adenovirus Not Detected (NOT DETECT); Bordetella pertussis Not Detected (NOT DETECT); Chlamydophila pneumoniae Not Detected (NOT DETECT); Coronavirus 229E Not Detected (NOT DETECT); Coronavirus HKU1 Not Detected (NOT DETECT); Coronavirus NL63 Not Detected (NOT DETECT); Coronavirus OC43 Not Detected (NOT DETECT); Human Metapneumovirus Not Detected (NOT DETECT); Human Rhinovirus/Enterovirus Not Detected (NOT DETECT); Influenza A/2009-H1 Not Detected (NOT DETECT); Influenza A/H1 Not Detected (NOT DETECT); Influenza A/H3 Not Detected (NOT DETECT); Influenza B Not Detected (NOT DETECT); Mycoplasma pneumoniae Not Detected (NOT DETECT); Parainfluenza Virus 1 Not Detected (NOT DETECT); Parainfluenza Virus 2 Not Detected (NOT DETECT); Parainfluenza Virus 3 Not Detected (NOT DETECT); Parainfluenza Virus 4 Not Detected (NOT DETECT); Respiratory Syncytial Virus Detected (NOT DETECT); SARS-Cov-2 (COVID-19), BioFire Not Detected (NOT DETECT)
--- NOTE | 2022-08-28 16:45 | NUR ---
RSV DETECTED ON RESPIRATORY PANEL/PCR. DR. BELL AWARE. NO NEW ORDERS AT THIS TIME.
--- NOTE | 2022-08-28 17:22 | NUR ---
NO ACUTE CHANGES. REPORT PHONED TO TELLO GUTIERREZ IN PREP TO TRANSFER PT TO ROOM 305.
--- NOTE | 2022-08-28 18:15 | NUR ---
PT ARRIVED FROM ICU-10 TRANSFER, PT A&O X4, INDEPENDANT TRANSFER, HOME MEDICATION PLACED IN DRAWER. PT HAS A INSULIN PUMP AND CBG CHECKS THROUGH PERSONAL MOBILE DEVICE. PT ORIENTATED TO THE ROOM, STAFF AND COMMUNICATION BROAD.
--- NOTE | 2022-08-28 20:51 | NUR ---
NURSE NOTE PT HS BS 188; PT NOTIFIED; PER PT HE RECALIBRATED INSULIN PUMP BASED ON 188 CBG. PT HAS [employer] GLUCOSE METER; HIS METER READ 10PTS LESS THAN CBG.
--- NOTE | 2022-08-29 05:22 | NUR ---
NETWORK DESKTOP SUPPORT SPECIALIST SUMMARY PT A/OX4. INDEPENDENT IN THE ROOM. PT HAS INSULIN PUMP AND DEXCOM MOBILE BLOOD SUGAR MONITOR. CONT WITH AC/HS BS CHECKS AND PT MAKES ADJUSTMENTS. HS BLOOD SUGAR 188. PT IS PLEASANT AND COOPERATIVE WITH CARE. CONT T/REPORT 7/10 PAIN IN ABD. MED P/EMAR. NOTED INCREASED MOSTLY NONPRODUCTIVE COUGH T/O THE NIGHT. PT ABLE TO MAKE NEEDS KNOWN. CALL LIGHT ACCESSIBLE. BED LOCKED/LOW.
[2022-08-29 05:23] LABS: Bun/Creatinine Ratio 13.1 (12.0-20.0); Creatinine, Blood 1.07 mg/dL (0.60-1.20); Potassium, Blood 3.5 mmol/L (3.5-5.5)
[2022-08-29 05:34] LABS: BASOPHILS ABSOLUTE AUTO 0.04 K/mm3 (0.00-0.23); BASOPHILS PERCENT AUTO 1 % (0-2); EOSINOPHILS ABSOLUTE AUTO 0.13 K/mm3 (0.00-0.68); EOSINOPHILS PERCENT AUTO 2 % (0-6); Hematocrit 27.5 % (37.0-53.0); Hemoglobin 9.9 g/dL (13.5-17.5); IMMATURE GRAN ABSOLUTE AUTO 0.05 K/mm3 (0.00-0.10); IMMATURE GRAN PERCENT AUTO 1 % (0-1); LYMPHOCYTES ABSOLUTE AUTO 1.46 K/mm3 (0.84-5.20); LYMPHOCYTES PERCENT AUTO 25 % (21-46); MONOCYTES ABSOLUTE AUTO 0.62 K/mm3 (0.16-1.47); MONOCYTES PERCENT AUTO 11 % (4-13); Mean Corpuscular HGB 32.5 pg (26.0-34.0); Mean Corpuscular Volume 90 fL (80-100); Mean Platelet Volume 10.3 fL (9.1-12.4); NEUTROPHILS ABSOLUTE AUTO 3.48 K/mm3 (1.96-9.15); NEUTROPHILS PERCENT AUTO 60 % (41-73); Platelet Count 196 K/mm3 (150-400); RDW Coefficient Variation 12.3 % (11.7-14.2); RDW Standard Deviation 40.4 fL (35.1-46.3); Red Blood Cell Count 3.05 M/mm3 (4.30-5.90); White Blood Cell Count 5.78 K/mm3 (4.00-11.30)
--- NOTE | 2022-08-29 15:56 | NUR ---
Patient is sitting up in bed and alert. His spouse, Malu is bedside. They talk about their many adjustments they have had to make in life and how they have had to lean on their ayana for strength and direction. They share about their children and the hopes for them moving forward. Patient talks abut the care plan and possibly d/c to home tomorrow. I provide recitaion of scripture and prayer. Patient and Malu showed signs of being encouraged in their ayana. I will continue to remain available to patient and family.
--- NOTE | 2022-08-29 17:35 | NUR ---
SUMMARY- PT A/O X4, INDEPENDANT IN ROOM. PT STARTED EATING SOLID FOOD THIS AM FOR BREAKFAST TOLERATED SCRAMBLED EGGS WELL. DID NOT TOLEATE LUNCH, STATES HE INDULGED A BIT TO MUCH. PT MEDICATED WITH OXYCODONE Q4 PRN WITH FENTANYL, ASTED FOR BOTH EVERY TIME. ORDER CHANGED TO BEGAN WEANING OFF FENT DOSE PREPAIRING FOR HOME. PT'S BOWEL TONES REMAIN HYPOACTIVE. PT STATES HE HAD A BM TODAY, SMALL SOFT BROWN, NORMAL CONSISTANCY, FIRST BM SINCE ADMIT.
--- NOTE | 2022-08-30 04:55 | NUR ---
SHIFT SUMMARY; NO ACUTE CHANGES OVERNIGHT. THE PT IS AXO X4 AND INDEPENDENT IN THE ROOM. THE PT HAS HIS OWN INSULIN PUMP THAT HE MANAGES. BS-AC/HS. QSHIFT INSULIN BASAL RATE VERIFICATION WELL QSHIFT DOCUMENTATION OF TOTAL INSULIN T/O THE SHIFT. THE PTS ABDOMINAL PAIN WAS CONSTANT LAST NIGHT, THE PT REQUESTED ROXICODONE TWICE LAST NIGHT AND FENTANYL ONCE FOR BREAKTHROUGH PAIN. THE PT DENIES ANY OTHER PAIN. THE PT DENIES ANY SOB, CHEST PAIN/PRESSURE THIS SHIFT. PROBABLE D/C TODAY IF THE PTS SYMPTOMS DO NOT WORSEN. THE PT IS RESTING IN BED WITH THE BED IN THE LOWEST POSITION AND THE CALL LIGHT AT BEDSIDE CURRENTLY.
[2022-08-30 05:34] LABS: BASOPHILS ABSOLUTE AUTO 0.06 K/mm3 (0.00-0.23); BASOPHILS PERCENT AUTO 1 % (0-2); EOSINOPHILS ABSOLUTE AUTO 0.25 K/mm3 (0.00-0.68); EOSINOPHILS PERCENT AUTO 4 % (0-6); Hematocrit 30.7 % (37.0-53.0); Hemoglobin 10.9 g/dL (13.5-17.5); IMMATURE GRAN ABSOLUTE AUTO 0.03 K/mm3 (0.00-0.10); IMMATURE GRAN PERCENT AUTO 0 % (0-1); LYMPHOCYTES ABSOLUTE AUTO 2.02 K/mm3 (0.84-5.20); LYMPHOCYTES PERCENT AUTO 29 % (21-46); MONOCYTES PERCENT AUTO 9 % (4-13); Mean Corpuscular HGB 32.3 pg (26.0-34.0); Mean Corpuscular HGB Conc 35.5 g/dL (31.5-36.5); Mean Corpuscular Volume 91 fL (80-100); Mean Platelet Volume 9.7 fL (9.1-12.4); NEUTROPHILS ABSOLUTE AUTO 4.13 K/mm3 (1.96-9.15); NEUTROPHILS PERCENT AUTO 58 % (41-73); Platelet Count 253 K/mm3 (150-400); RDW Coefficient Variation 12.2 % (11.7-14.2); RDW Standard Deviation 40.8 fL (35.1-46.3); Red Blood Cell Count 3.37 M/mm3 (4.30-5.90); White Blood Cell Count 7.09 K/mm3 (4.00-11.30)
[2022-08-30 05:47] LABS: Bun/Creatinine Ratio 15.2 (12.0-20.0); Calcium, Blood 8.6 mg/dL (8.5-10.1); Creatinine, Blood 1.05 mg/dL (0.60-1.20); Potassium, Blood 3.2 mmol/L (3.5-5.5)
--- NOTE | 2022-08-30 06:20 | NUR ---
INSULIN PUMP BASAL RATE VERIFIED W/ CHRIS ORANTES RN. CURRENT BASAL RATE IS 0.8U/HR. TOTAL INSULIN DELIEVERED TO PT FROM [id number] IS 15.775 UNITS BETWEEN BOLUSES AND BASAL RATE. PT CALIBRATED PUMP TO POC TESTING AROUND 1999 PTS DEXCOM WAS NEARLY 15 POINTS HIGHER THAN OUR CBG MACHINES.
[2022-08-30] MEDS ORDERED: HYOS0.375T PO (10:24)
[2022-08-30] MEDS ORDERED: ALMACONE SUSPE355 ML PO (10:24)
[2022-08-30] MEDS ORDERED: LISI20 PO (10:25)
--- NOTE | 2022-08-30 11:11 | NUR ---
DISCHARGE SUMMARY PT DISCHARGED TO HOME. PT LEFT ROOM AT 1112 WITH LENS ASSISTANT ESCORT VIA WHEELCHAIR. POWERGLIDE DC'D AND BELONGINGS RETURNED. ALL DISCHARGE INSTRUCTIONS DISCUSSED, ALL QUESTIONS ANSWERED. PT AGREES TO FOLLOW UP SCHEDULED AND TAKE MEDICATIONS PRESCRIBED INCLUDING RETURNING TO HIS BASAL RATE OF INSULIN PER ORDERED.
== END 2022-08-30 11:20 | disposition home or self-care (01) | DRG 638 ==
LOC: ER 11:45 → ICUW 14:35 → MEDS 08-28 18:06
PROVIDERS: Emergency Medicine; Family Medicine; Student in an Organized Health Care Education/Training Program; ADMIT Internal Medicine
DX: E10.10 Type 1 diabetes mellitus with ketoacidosis without coma (principal); E87.1 Hypo-osmolality and hyponatremia; J21.0 Acute bronchiolitis due to respiratory syncytial virus; N17.9 Acute kidney failure, unspecified; K31.84 Gastroparesis; E10.42 Type 1 diabetes mellitus with diabetic polyneuropathy; I10 Essential (primary) hypertension; E10.43 Type 1 diabetes mellitus with diabetic autonomic (poly)neuropathy; J06.9 Acute upper respiratory infection, unspecified; E86.0 Dehydration; F12.10 Cannabis abuse, uncomplicated; F41.9 Anxiety disorder, unspecified; G89.29 Other chronic pain; E10.65 Type 1 diabetes mellitus with hyperglycemia; F32.A Depression, unspecified; R30.0 Dysuria; D72.829 Elevated white blood cell count, unspecified; Z20.822 Contact with and (suspected) exposure to COVID-19; Z87.19 Personal history of other diseases of the digestive system; Z88.5 Allergy status to narcotic agent; Z88.8 Allergy status to other drugs, medicaments and biological substances; Z86.79 Personal history of other diseases of the circulatory system; Z79.899 Other long term (current) drug therapy; Z93.1 Gastrostomy status; Z79.891 Long term (current) use of opiate analgesic; Z63.79 Other stressful life events affecting family and household; Z79.811 Long term (current) use of aromatase inhibitors; Z98.890 Other specified postprocedural states
CPT/HCPCS: 0202U; 36415; 71046; 80047; 80048; 80053; 81001; 82010; 82803; 82947; 83036; 83605; 83735; 84100; 85014; 85025; 93005; 93010; 96361; 96372; 96374; 96375; 96376; 99285-25; A9270; C1751; G0378; J0360; J1644; J1650; J1815; J2270; J2405; J2550; J2765; J3010; J3470; J3480; J7030; J7042; J7050

== ENCOUNTER 2023-06-06 04:52 | Inpatient (IN) | payer MEDICARE, OTHER ==
[~2023-06-06] VITALS: Ht 185.4 cm; Wt 64.2 kg
[2023-06-06] VITALS (11 sets, daily range): BP systolic 161–199; BP diastolic 97–119
[~2023-06-06 04:52] MED LIST changes: +ALMACONE SUSPE355 ML PO; +GABAPENTIN600 MG PO; +HUMALOG100 UNIT/1 SC; +HUMALOG100 UNIT/1 UD; +HYOS0.375T PO
[2023-06-06 05:11] LABS: BASOPHILS ABSOLUTE AUTO 0.07 K/mm3 (0.00-0.23); BASOPHILS PERCENT AUTO 1 % (0-2); EOSINOPHILS ABSOLUTE AUTO 0.01 K/mm3 (0.00-0.68); EOSINOPHILS PERCENT AUTO 0 % (0-6); Hematocrit 32.2 % (37.0-53.0); Hemoglobin 11.1 g/dL (13.5-17.5); IMMATURE GRAN ABSOLUTE AUTO 0.05 K/mm3 (0.00-0.10); IMMATURE GRAN PERCENT AUTO 0 % (0-1); LYMPHOCYTES PERCENT AUTO 11 % (21-46); MONOCYTES ABSOLUTE AUTO 0.54 K/mm3 (0.16-1.47); MONOCYTES PERCENT AUTO 4 % (4-13); Mean Corpuscular HGB 31.7 pg (26.0-34.0); Mean Corpuscular HGB Conc 34.5 g/dL (31.5-36.5); Mean Corpuscular Volume 92 fL (80-100); Mean Platelet Volume 9.9 fL (9.1-12.4); NEUTROPHILS ABSOLUTE AUTO 10.36 K/mm3 (1.96-9.15); NEUTROPHILS PERCENT AUTO 84 % (41-73); Platelet Count 270 K/mm3 (150-400); RDW Coefficient Variation 12.9 % (11.7-14.2); RDW Standard Deviation 43.4 fL (35.1-46.3); White Blood Cell Count 12.33 K/mm3 (4.00-11.30)
[2023-06-06 05:34] LABS: Albumin, Blood 4.3 g/dL (3.4-5.0); Bun/Creatinine Ratio 14.9 (12.0-20.0); Calcium, Blood 9.4 mg/dL (8.5-10.1); Creatinine, Blood 1.01 mg/dL (0.60-1.20); Globulin, Blood 4.3 g/dL (2.2-4.0); Potassium, Blood 3.9 mmol/L (3.5-5.5); Total Protein, Blood 8.6 g/dL (6.4-8.2)
[2023-06-06 05:48] LABS: Base Excess Venous -6.4 mmol/L; Bicarbonate Venous 20.5 mmol/L (24.0-30.0); PCO2 Venous 19.8 mmHg (38-42); pH Blood Venous 7.53 (7.34-7.37)
[2023-06-06 06:11] LABS: Beta-hydroxybutyrate 28.1 mg/dL (0.2-2.8); Magnesium, Blood 1.6 mg/dL (1.6-2.4); Phosphorus, Blood 1.5 mg/dL (2.5-4.9); Thyroid Stimulating Hormone 1.79 uIU/mL (0.360-4.800)
[2023-06-06 07:01] LABS: U Amphetamine Screen Not Detected; U Barbituate Screen Not Detected; U Benzodiazapine Screen Not Detected; U Buprenorphine Screen Not Detected; U Cannabinoids Screen DETECTED; U Cocaine Screen Not Detected; U Methadone Screen Not Detected; U Methamphetamine Screen Not Detected; U Opiates Screen Not Detected; U Oxycodone Screen DETECTED; U Phencyclidine Screen Not Detected; U Propoxyphene Screen Not Detected
[2023-06-06 11:25] LABS: BASOPHILS ABSOLUTE AUTO 0.04 K/mm3 (0.00-0.23); BASOPHILS PERCENT AUTO 0 % (0-2); EOSINOPHILS PERCENT AUTO 0 % (0-6); Hematocrit 31.9 % (37.0-53.0); Hemoglobin 10.8 g/dL (13.5-17.5); IMMATURE GRAN ABSOLUTE AUTO 0.05 K/mm3 (0.00-0.10); IMMATURE GRAN PERCENT AUTO 0 % (0-1); LYMPHOCYTES ABSOLUTE AUTO 0.94 K/mm3 (0.84-5.20); LYMPHOCYTES PERCENT AUTO 7 % (21-46); MONOCYTES ABSOLUTE AUTO 0.51 K/mm3 (0.16-1.47); MONOCYTES PERCENT AUTO 4 % (4-13); Mean Corpuscular HGB Conc 33.9 g/dL (31.5-36.5); Mean Corpuscular Volume 92 fL (80-100); Mean Platelet Volume 9.7 fL (9.1-12.4); NEUTROPHILS ABSOLUTE AUTO 12.64 K/mm3 (1.96-9.15); NEUTROPHILS PERCENT AUTO 89 % (41-73); Platelet Count 257 K/mm3 (150-400); RDW Coefficient Variation 12.9 % (11.7-14.2); RDW Standard Deviation 43.3 fL (35.1-46.3); Red Blood Cell Count 3.48 M/mm3 (4.30-5.90); White Blood Cell Count 14.18 K/mm3 (4.00-11.30)
[2023-06-06 11:46] LABS: Albumin, Blood 4.3 g/dL (3.4-5.0); Bun/Creatinine Ratio 13.5 (12.0-20.0); Creatinine, Blood 1.04 mg/dL (0.60-1.20); Globulin, Blood 4.5 g/dL (2.2-4.0); Potassium, Blood 3.7 mmol/L (3.5-5.5); Total Protein, Blood 8.8 g/dL (6.4-8.2)
--- NOTE | 2023-06-06 17:17 | NUR ---
SHIFT SUMMARY PT ARRIVED TO UNIT AROUND 1215. HE WAS SHAKING AND SAID HE WAS COLD. ASSESSMENT PERFORMED AND WARM BLANKETS GIVEN TO PT. PT SAID HE WAS NAUSEOUS AND FELT LIKE HE WAS GOING TO VOMIT, MEDICATED PER EMAR. PT SAID HE HAD 7/10 CRAMPING ABDOMINAL PAIN, MEDICATED PER EMAR. ON RA MAINTAINING O2 SATURATION ABOVE 93%. HR 90'S-110'S, BP ELEVATED UPON ADMISSION TO FLOOR, MD NOTIFIED, BP HAS COME DOWN SINCE ADMISSION TO UNIT, WILL NOTIFY MD IF SBP GETS ABOVE 180 AGAIN. PT CONTINUES TO HAVE 7/10 ABDOMINAL PAIN AND NAUSEA, MEDICATED PER EMAR. PT USING URINAL APPROPRIATELY. PT HAS BEEN CALLING APPROPRIATELY. IV THAT PT CAME TO UNIT WITH IN L HAND FELL OUT, POWERGLIDE WAS INSERTED BY CHARGE NURSE. POWERGLIDE IN R UPPER ARM, DRAWS BLOOD, AND INFUSING PER EMAR. PT'S CAME TO UNIT WITH HIM WHEN HE ARRIVED. SHE HAD TO LEAVE AND GO BACK TO WORK, SHE SAID SHE MAY BE BACK LATER. PT HAS GLUCOSE MONITOR AND PUMP, PT TOLD MD THAT HE HAS NOT BEEN USING PUMP TO ADMINISTER INSULIN, EMAR UPDATED BY MD. PT HAS GASTRO STIMULATOR IN L LOWER QUADRANT OF ABDOMEN. BLOOD SUGAR WAS 317 UPON ADMISSION TO UNIT AND WENT UP TO 357, MD NOTIFIED, PT MEDICATED PER EMAR. NS FLUIDS RUNNING PER EMAR. PT RESTING IN BED, CALL LIGHT WITHIN REACH.
[2023-06-06 18:14] LABS: Bun/Creatinine Ratio 17.4 (12.0-20.0); Calcium, Blood 8.7 mg/dL (8.5-10.1); Creatinine, Blood 1.09 mg/dL (0.60-1.20); Potassium, Blood 3.3 mmol/L (3.5-5.5)
[2023-06-07 01:00] LABS: Bun/Creatinine Ratio 18.4 (12.0-20.0); Calcium, Blood 9.4 mg/dL (8.5-10.1); Creatinine, Blood 1.25 mg/dL (0.60-1.20); Potassium, Blood 3.4 mmol/L (3.5-5.5)
[2023-06-07 03:38] VITALS: BP 158/97
[2023-06-07 03:53] LABS: Base Excess Venous -6.2 mmol/L; Bicarbonate Venous 20.9 mmol/L (24.0-30.0); PCO2 Venous 17.3 mmHg (38-42); pH Blood Venous 7.57 (7.34-7.37)
--- NOTE | 2023-06-07 04:05 | NUR ---
CRITICAL HIGH VALUE this nr [facility] called and informed of a critical high ph, no change in patient condition. this rn informed md and no new orders placed at this time.
--- NOTE | 2023-06-07 04:07 | NUR ---
shift summary this rn assumed care at 1900. bp hypertensive, but is not within parameters to receive medication at the begining of shift, bp stable at the last q4 vital rounds. spo2 >90% on room air. patient has been ferbile off and on this shift. tele sr/st. patient is alert and oriented x4. perrla. patient calls appropriately. patient reports pain off and on this shift, and received pain meds per emar, see emar. patient reports no shortness of breath. patient reports no chest pain/pressure. see shift assessment for further detials. plan of care is up to date. call light within reach.
[2023-06-07 04:23] LABS: BASOPHILS ABSOLUTE AUTO 0.02 K/mm3 (0.00-0.23); BASOPHILS PERCENT AUTO 0 % (0-2); EOSINOPHILS PERCENT AUTO 0 % (0-6); Hematocrit 30.2 % (37.0-53.0); Hemoglobin 10.8 g/dL (13.5-17.5); IMMATURE GRAN PERCENT AUTO 1 % (0-1); LYMPHOCYTES ABSOLUTE AUTO 1.53 K/mm3 (0.84-5.20); LYMPHOCYTES PERCENT AUTO 10 % (21-46); MONOCYTES ABSOLUTE AUTO 0.97 K/mm3 (0.16-1.47); MONOCYTES PERCENT AUTO 6 % (4-13); Mean Corpuscular HGB Conc 35.8 g/dL (31.5-36.5); Mean Corpuscular Volume 89 fL (80-100); Mean Platelet Volume 10.1 fL (9.1-12.4); NEUTROPHILS ABSOLUTE AUTO 13.07 K/mm3 (1.96-9.15); NEUTROPHILS PERCENT AUTO 83 % (41-73); Platelet Count 276 K/mm3 (150-400); RDW Coefficient Variation 13.1 % (11.7-14.2); RDW Standard Deviation 42.4 fL (35.1-46.3); Red Blood Cell Count 3.38 M/mm3 (4.30-5.90); White Blood Cell Count 15.69 K/mm3 (4.00-11.30)
[2023-06-07 04:49] LABS: Bun/Creatinine Ratio 21.1 (12.0-20.0); Calcium, Blood 8.8 mg/dL (8.5-10.1); Creatinine, Blood 1.14 mg/dL (0.60-1.20); Potassium, Blood 3.4 mmol/L (3.5-5.5)
[2023-06-07 08:35] VITALS: BP 155/93
[2023-06-07 19:28] VITALS: BP 172/100
--- NOTE | 2023-06-07 19:30 | NUR ---
SHIFT SUMMARY 1630 ASSUMED CARE OF PT. TX FROM PCU 14. PT ADMITTED FOR GASTROPARESIS. N/V AT HOME. TAKING NARCOTICS FOR ABD PAIN. USING MARIJUANNA AT HOME. PER REPORT AND PT, NO BM FOR SEVERAL DAYS. PG TO STAR INFUSING NS @ 125 HR. INDEPENDENT TO BTHRM. REPORT GIVEN TO ONCFLACA JAVED.
[2023-06-08 03:25] VITALS: BP 181/113
[2023-06-08 05:07] LABS: BASOPHILS ABSOLUTE AUTO 0.03 K/mm3 (0.00-0.23); BASOPHILS PERCENT AUTO 0 % (0-2); EOSINOPHILS PERCENT AUTO 0 % (0-6); Hematocrit 30.2 % (37.0-53.0); Hemoglobin 10.4 g/dL (13.5-17.5); IMMATURE GRAN ABSOLUTE AUTO 0.08 K/mm3 (0.00-0.10); IMMATURE GRAN PERCENT AUTO 1 % (0-1); LYMPHOCYTES ABSOLUTE AUTO 1.49 K/mm3 (0.84-5.20); LYMPHOCYTES PERCENT AUTO 10 % (21-46); MONOCYTES ABSOLUTE AUTO 0.88 K/mm3 (0.16-1.47); MONOCYTES PERCENT AUTO 6 % (4-13); Mean Corpuscular HGB 31.3 pg (26.0-34.0); Mean Corpuscular HGB Conc 34.4 g/dL (31.5-36.5); Mean Corpuscular Volume 91 fL (80-100); Mean Platelet Volume 9.8 fL (9.1-12.4); NEUTROPHILS ABSOLUTE AUTO 13.21 K/mm3 (1.96-9.15); NEUTROPHILS PERCENT AUTO 84 % (41-73); Platelet Count 265 K/mm3 (150-400); RDW Coefficient Variation 12.7 % (11.7-14.2); RDW Standard Deviation 42.1 fL (35.1-46.3); Red Blood Cell Count 3.32 M/mm3 (4.30-5.90); White Blood Cell Count 15.69 K/mm3 (4.00-11.30)
--- NOTE | 2023-06-08 05:48 | NUR ---
shift summery, pt resting in bed, sleeping on and off during night. pt medicated for pain multiple times and 2x for nausea. call light n reach.
[2023-06-08 06:04] LABS: Albumin, Blood 3.5 g/dL (3.4-5.0); Albumin/Globulin Ratio 0.9 (0.8-1.8); Bun/Creatinine Ratio 26.5 (12.0-20.0); Calcium, Blood 8.3 mg/dL (8.5-10.1); Creatinine, Blood 1.02 mg/dL (0.60-1.20); Globulin, Blood 3.8 g/dL (2.2-4.0); Magnesium, Blood 1.7 mg/dL (1.6-2.4); Phosphorus, Blood 3.3 mg/dL (2.5-4.9); Potassium, Blood 3.7 mmol/L (3.5-5.5); Total Protein, Blood 7.3 g/dL (6.4-8.2)
[2023-06-08 08:09] VITALS: BP 171/107
--- NOTE | 2023-06-08 09:49 | NUR ---
PHYSICIAN CONTACT DR ROMERO REQUESTED MORPHINE TO BE GIVEN PER PATIENT REQUEST, INFORMED THAT HE HAD JUST RECEIVED 15MG OF OXY. OKAYED TO GIVE MORPHINE.
[2023-06-08 10:10] VITALS: BP 142/95
--- NOTE | 2023-06-08 11:05 | NUR ---
PHYSICIAN CONTACT CLARIFIED WITH DR ROMERO THAT PATIENT IS OKAY TO CONTINUE USING INSULIN PUMP. DR ROMERO OKAYED PATIENT TO USE BASAL RATE SETTING AND WANTED THIS NURSE TO CLARIFY BOLUS SCHEDULE WITH PATIENT. PATIENT EDUCATED ON FREQUENCY OF BLOOD SUGAR CHECKS AND ORDERED SLIDING SCALE. PATIENT AGREED TO ONLY USE BASAL RATE ON INSULIN PUMP AND LET NURSING STAFF COVER ACCUCHECK READINGS, INSTRUCTED TO LET NURSING STAFF KNOW IF HE DESIRED TO CHANGE THIS PLAN. DOC AWARE.
[2023-06-08 15:25] VITALS: BP 187/114
--- NOTE | 2023-06-08 16:19 | NUR ---
SHIFT SUMMARY PATIENT AMBULATING TO BATHROOM WELL. VSS, EPISODES OF HYPERTENSION IN CORRELATION TO NAUSEA AND PAIN. REQUIRING SEVERAL DOSES OF MEDS TO MAINTAIN SOME COMFORT. CONTINUES TO ALLOW STAFF TO COVER ACCUCHECK GLUCOSE READINGS. WILL CONTINUE TO MONITOR
[2023-06-08 19:21] VITALS: BP 164/95
--- NOTE | 2023-06-09 04:34 | NUR ---
SHIFT REAGAN,PT SLEEPING ON AND OFF DURING THE NIGHT. EARLIER IN SHIF PT WANTING ALL PAIN MEDS AT ONE TIME, 15 MG OXY AND 6 MG IV MS. TOLD PT NOT COMFORTABLE GIVENHIM THAT MUCH AT ONCE, PT UPSET, HE WANTED TO TALD TO HYBRID POWERTRAIN DEVELOPMENT ENGINEER, PT SPOKE TO TINO JAVED AND AGREED TO WAIT AT LEAST A HR BETWEEN MEDS. PT HAS 1999 CBG DUE PARALEGAL LEGAL SECRETARY GOT CBG IT WAS 409, DAY RN HAD TALKED TO PT ABOUT NOT GIVING HIMSELF A BOLUS AND LETTING NURSING MANAGE SO PT NOT GETTING TOO MUCH INSULIN. PT WHEN CBG DONE GAVE HIMSELF A BOLUS. WAITHE TILL 2121, CBG DONE AND WAS 391, 9 UNITS GIVEN AT THAT TIME. AT 0032 260 , NOW AT 0440 153. ALL LIGHT IN REACH
[2023-06-09 05:42] VITALS: BP 155/95
[2023-06-09 06:19] LABS: BASOPHILS ABSOLUTE AUTO 0.04 K/mm3 (0.00-0.23); BASOPHILS PERCENT AUTO 0 % (0-2); EOSINOPHILS ABSOLUTE AUTO 0.06 K/mm3 (0.00-0.68); EOSINOPHILS PERCENT AUTO 1 % (0-6); Hematocrit 28.4 % (37.0-53.0); IMMATURE GRAN ABSOLUTE AUTO 0.04 K/mm3 (0.00-0.10); IMMATURE GRAN PERCENT AUTO 0 % (0-1); LYMPHOCYTES ABSOLUTE AUTO 1.63 K/mm3 (0.84-5.20); LYMPHOCYTES PERCENT AUTO 16 % (21-46); MONOCYTES ABSOLUTE AUTO 0.77 K/mm3 (0.16-1.47); MONOCYTES PERCENT AUTO 8 % (4-13); Mean Corpuscular HGB 31.6 pg (26.0-34.0); Mean Corpuscular HGB Conc 35.2 g/dL (31.5-36.5); Mean Corpuscular Volume 90 fL (80-100); Mean Platelet Volume 9.5 fL (9.1-12.4); NEUTROPHILS ABSOLUTE AUTO 7.71 K/mm3 (1.96-9.15); NEUTROPHILS PERCENT AUTO 75 % (41-73); Platelet Count 266 K/mm3 (150-400); RDW Coefficient Variation 12.4 % (11.7-14.2); RDW Standard Deviation 40.8 fL (35.1-46.3); Red Blood Cell Count 3.16 M/mm3 (4.30-5.90); White Blood Cell Count 10.25 K/mm3 (4.00-11.30)
[2023-06-09 06:43] LABS: Albumin, Blood 3.2 g/dL (3.4-5.0); Anion Gap 10 mmol/L (6-16); Blood Urea Nitrogen 22 mg/dL (8-24); Bun/Creatinine Ratio 20.2 (12.0-20.0); CO2, Blood 19 mmol/L (21-32); Calcium, Blood 8.3 mg/dL (8.5-10.1); Chloride, Blood 108 mmol/L (98-108); Creatinine, Blood 1.09 mg/dL (0.60-1.20); Glomerular Filtration Rate 82 (60-); Glucose, Blood 188 mg/dL (70-99); Magnesium, Blood 2.1 mg/dL (1.6-2.4); Phosphorus, Blood 2.2 mg/dL (2.5-4.9); Potassium, Blood 3.5 mmol/L (3.5-5.5); Sodium, Blood 137 mmol/L (136-145)
[2023-06-09 07:59] VITALS: BP 173/98
--- NOTE | 2023-06-09 09:54 | NUR ---
GLUCOSE CHECK PATIENT ADMINISTERED 1.2 UNITS OF INSULIN VIA PERSONAL PUMP FOR CARB COVERAGE. OKAYED BY DR ROMERO FOR PATIENT TO MANAGE HIS OWN BLOOD GLUCOSE LEVELS AND INSULIN COVERAGE VIA PERSONAL PUMP. INSTRUCTED TO CONTINUE TO MONITOR AND PERFORM PRN CHECKS IF NURSING JUDGMENT NEEDS.
--- NOTE | 2023-06-09 11:41 | NUR ---
PHYSICIAN CONTACT DR ROMERO OKAYED PATIENT TO ADMINISTER INSULIN PER PUMP PER HOME DOSING SCHEDULE. DOC OKAYED TO ALLOW PATIENT TO MONITOR BLOOD GLUCOSE ON HIS DIEGO AND COMMUNICATE WITH NURSE, LEVELS AND HOW MUCH INSULIN HE ADMINISTERS.
--- NOTE | 2023-06-09 14:16 | NUR ---
GLUCOSE CHECK PATIENT STATED TO HAVE GIVEN HIMSELF 3.5 UNITS FOR A GLUCOSE OF 256.
[2023-06-09 16:14] VITALS: BP 161/92
--- NOTE | 2023-06-09 18:21 | NUR ---
SHIFT SUMMARY TOLERATING CHANGE FROM MORPHINE TO DILAUDED THIS SHIFT, REPORTING BETTER PAIN REGULATION. AMBULATING TO BATHROOM WELL, ABLE TO VOID INDEPENDENTLY. TOLERATING CLEAR LIQUIDS MODERATELY WELL, REQUIRING LESS NAUSEA MEDS COMPARED TO YESTERDAY. STATED HE BELIEVES HE HAS TURNED A CORNER FOR THE BETTER AND FEELS HOPEFUL TODAY. WILL CONTINUE TO MONITOR
--- NOTE | 2023-06-09 18:33 | NUR ---
GLUCOSE CHECK BOLUSED WITH 3.25UNITS FOR A GLUCOSE OF 380. HAS "SICK DAY" SETTING ON PUMP WHICH HE STATED HE WILL BE USING FOR THE NEXT 24 HOURS BECAUSE OF HIS ELEVATED LEVELS THIS SHIFT, BASAL RATE WILL CHANGE WITH THIS TO .8 UNITS PER HOUR FROM .4UNITS PER HOUR. WILL CONTINUE TO MONITOR
[2023-06-09 19:38] VITALS: BP 156/96
--- NOTE | 2023-06-09 20:09 | NUR ---
NURSING NOTE CHECK IN ON BLOOD SUGARS. 188 AT 2009. LAST BOLUS AT 5:30 PM 3.25 UNITS. BLOOD SUGAR AT 5:30 WAS 380. NO COVERAGE AT THIS TIME.
--- NOTE | 2023-06-09 23:25 | NUR ---
PATIENT CALLED AND STATED HIS BLOOD SUGAR WAS AT 104. HE REQUESTED SOME APPLE JUICE.
[2023-06-10 02:25] VITALS: BP 131/90
--- NOTE | 2023-06-10 04:05 | NUR ---
BLOOD SUGAR 85 - APPLE JUICE GIVEN. NO COVERAGE
[2023-06-10 06:32] LABS: BASOPHILS ABSOLUTE AUTO 0.04 K/mm3 (0.00-0.23); BASOPHILS PERCENT AUTO 1 % (0-2); EOSINOPHILS ABSOLUTE AUTO 0.19 K/mm3 (0.00-0.68); EOSINOPHILS PERCENT AUTO 3 % (0-6); Hematocrit 27.4 % (37.0-53.0); Hemoglobin 9.5 g/dL (13.5-17.5); IMMATURE GRAN ABSOLUTE AUTO 0.01 K/mm3 (0.00-0.10); IMMATURE GRAN PERCENT AUTO 0 % (0-1); LYMPHOCYTES ABSOLUTE AUTO 1.98 K/mm3 (0.84-5.20); LYMPHOCYTES PERCENT AUTO 34 % (21-46); MONOCYTES ABSOLUTE AUTO 0.62 K/mm3 (0.16-1.47); MONOCYTES PERCENT AUTO 11 % (4-13); Mean Corpuscular HGB 31.5 pg (26.0-34.0); Mean Corpuscular HGB Conc 34.7 g/dL (31.5-36.5); Mean Corpuscular Volume 91 fL (80-100); Mean Platelet Volume 9.2 fL (9.1-12.4); NEUTROPHILS ABSOLUTE AUTO 2.95 K/mm3 (1.96-9.15); NEUTROPHILS PERCENT AUTO 51 % (41-73); Platelet Count 220 K/mm3 (150-400); RDW Coefficient Variation 12.5 % (11.7-14.2); RDW Standard Deviation 41.2 fL (35.1-46.3); Red Blood Cell Count 3.02 M/mm3 (4.30-5.90); White Blood Cell Count 5.79 K/mm3 (4.00-11.30)
[2023-06-10 06:53] LABS: Albumin, Blood 3.1 g/dL (3.4-5.0); Anion Gap 4 mmol/L (6-16); Blood Urea Nitrogen 14 mg/dL (8-24); Bun/Creatinine Ratio 12.4 (12.0-20.0); CO2, Blood 26 mmol/L (21-32); Calcium, Blood 8.3 mg/dL (8.5-10.1); Chloride, Blood 112 mmol/L (98-108); Creatinine, Blood 1.13 mg/dL (0.60-1.20); Glomerular Filtration Rate 78 (60-); Glucose, Blood 90 mg/dL (70-99); Phosphorus, Blood 3.3 mg/dL (2.5-4.9); Potassium, Blood 3.5 mmol/L (3.5-5.5); Sodium, Blood 142 mmol/L (136-145)
--- NOTE | 2023-06-10 06:56 | NUR ---
NOC SHIFT SUMMARY: DIALUDID NEEDED FOR PAIN. OXYCODONE NEEDED FOR PAIN. PATIENT IS INDEPENDENT. PATIENT WOULD LIKE TO GO HOME TODAY. TYLENOL SCHEDUELD FOR PAIN CONTROL. POWERGLIDE IN PLACE.
[2023-06-10 08:18] VITALS: BP 177/102
[2023-06-10 09:18] VITALS: BP 149/97
[2023-06-10] MEDS ORDERED: LISI20 PO (11:42)
[2023-06-10] MEDS ORDERED: METO5A PO (11:43)
[2023-06-10] MEDS ORDERED: METO25 PO (11:43)
--- NOTE | 2023-06-10 13:14 | NUR ---
PT DISCHARGED HOME. DC INSTRUCTIONS AND EDUCATION MATERIAL EXPLAINED TO PT. NO NEW QUESTIONS OR CONCERNS. PERSCRIPTIONS FAXED TO [facility]. ALL BELONGINGS SENT HOME WITH PT. PT DECLINED WHEELCHAIR. PT ABLE TO LEAVE INDEPENDENTLY WITH .
== END 2023-06-10 13:09 | disposition home or self-care (01) | DRG 74 ==
LOC: ER 04:52 → PCU 04:53 → MEDS 06-07 16:20
PROVIDERS: Emergency Medicine; Family Medicine; ADMIT Family Medicine
DX: E10.43 Type 1 diabetes mellitus with diabetic autonomic (poly)neuropathy (principal); E87.3 Alkalosis; K31.84 Gastroparesis; I10 Essential (primary) hypertension; E86.0 Dehydration; E10.65 Type 1 diabetes mellitus with hyperglycemia; I16.0 Hypertensive urgency; F32.A Depression, unspecified; T38.3X6A Underdosing of insulin and oral hypoglycemic [antidiabetic] drugs, initial encounter; E87.6 Hypokalemia; Z91.138 Patient's unintentional underdosing of medication regimen for other reason; Z88.5 Allergy status to narcotic agent; Z79.891 Long term (current) use of opiate analgesic; Z96.41 Presence of insulin pump (external) (internal)
CPT/HCPCS: 74022; 80048; 80053; 80069; 82010; 82803; 82947; 83605; 83690; 83735; 84100; 84443; 85025; 96361; 96365; 96366; 96374; 96375; 96376; 99285-25; A9270; G0378; J0780; J1170; J1650; J1790; J1815; J1885; J2270; J2405; J2765; J3010; J3475; J3480; J7030; J7060

== ENCOUNTER 2023-06-11 10:17 | Inpatient (IN) | payer MEDICARE, OTHER ==
[~2023-06-11] VITALS: Ht 188 cm; Wt 63.2 kg
[~2023-06-11 10:17] MED LIST changes: +METO5A PO
[2023-06-11 11:52] LABS: BASOPHILS ABSOLUTE AUTO 0.05 K/mm3 (0.00-0.23); BASOPHILS PERCENT AUTO 1 % (0-2); EOSINOPHILS ABSOLUTE AUTO 0.05 K/mm3 (0.00-0.68); EOSINOPHILS PERCENT AUTO 1 % (0-6); Hematocrit 32.8 % (37.0-53.0); Hemoglobin 11.5 g/dL (13.5-17.5); IMMATURE GRAN ABSOLUTE AUTO 0.02 K/mm3 (0.00-0.10); IMMATURE GRAN PERCENT AUTO 0 % (0-1); LYMPHOCYTES ABSOLUTE AUTO 1.24 K/mm3 (0.84-5.20); LYMPHOCYTES PERCENT AUTO 13 % (21-46); MONOCYTES ABSOLUTE AUTO 0.44 K/mm3 (0.16-1.47); MONOCYTES PERCENT AUTO 5 % (4-13); Mean Corpuscular HGB 31.2 pg (26.0-34.0); Mean Corpuscular HGB Conc 35.1 g/dL (31.5-36.5); Mean Corpuscular Volume 89 fL (80-100); Mean Platelet Volume 9.6 fL (9.1-12.4); NEUTROPHILS ABSOLUTE AUTO 7.86 K/mm3 (1.96-9.15); NEUTROPHILS PERCENT AUTO 81 % (41-73); Platelet Count 294 K/mm3 (150-400); RDW Coefficient Variation 12.4 % (11.7-14.2); RDW Standard Deviation 40.5 fL (35.1-46.3); Red Blood Cell Count 3.69 M/mm3 (4.30-5.90); White Blood Cell Count 9.66 K/mm3 (4.00-11.30)
[2023-06-11 11:54] LABS: PCO2 Venous 22.3 mmHg (38-42); pH Blood Venous 7.54 (7.34-7.37)
[2023-06-11 11:55] LABS: Base Excess Venous -3.3 mmol/L; Bicarbonate Venous 22.9 mmol/L (24.0-30.0)
[2023-06-11 12:33] LABS: Beta-hydroxybutyrate 3.6 mg/dL (0.2-2.8); Bilirubin, Total 0.5 mg/dL (0.1-1.0); Bun/Creatinine Ratio 14.3 (12.0-20.0); Calcium, Blood 9.1 mg/dL (8.5-10.1); Creatinine, Blood 0.98 mg/dL (0.60-1.20); Globulin, Blood 4.2 g/dL (2.2-4.0); Potassium, Blood 3.6 mmol/L (3.5-5.5); Total Protein, Blood 8.2 g/dL (6.4-8.2)
[2023-06-11 18:55] VITALS: BP 188/118
[2023-06-12 01:02] VITALS: BP 148/102
[2023-06-12 04:05] VITALS: BP 155/102
[2023-06-12 05:33] LABS: BASOPHILS ABSOLUTE AUTO 0.05 K/mm3 (0.00-0.23); BASOPHILS PERCENT AUTO 1 % (0-2); EOSINOPHILS ABSOLUTE AUTO 0.21 K/mm3 (0.00-0.68); EOSINOPHILS PERCENT AUTO 2 % (0-6); Hematocrit 25.9 % (37.0-53.0); Hemoglobin 9.2 g/dL (13.5-17.5); IMMATURE GRAN ABSOLUTE AUTO 0.03 K/mm3 (0.00-0.10); IMMATURE GRAN PERCENT AUTO 0 % (0-1); LYMPHOCYTES ABSOLUTE AUTO 2.12 K/mm3 (0.84-5.20); LYMPHOCYTES PERCENT AUTO 22 % (21-46); MONOCYTES ABSOLUTE AUTO 0.74 K/mm3 (0.16-1.47); MONOCYTES PERCENT AUTO 8 % (4-13); Mean Corpuscular HGB 31.7 pg (26.0-34.0); Mean Corpuscular HGB Conc 35.5 g/dL (31.5-36.5); Mean Corpuscular Volume 89 fL (80-100); Mean Platelet Volume 9.8 fL (9.1-12.4); NEUTROPHILS PERCENT AUTO 67 % (41-73); Platelet Count 236 K/mm3 (150-400); RDW Coefficient Variation 12.5 % (11.7-14.2); RDW Standard Deviation 41.1 fL (35.1-46.3); White Blood Cell Count 9.55 K/mm3 (4.00-11.30)
[2023-06-12 06:30] LABS: Albumin, Blood 3.3 g/dL (3.4-5.0); Bilirubin, Total 0.7 mg/dL (0.1-1.0); Bun/Creatinine Ratio 13.5 (12.0-20.0); Calcium, Blood 8.4 mg/dL (8.5-10.1); Creatinine, Blood 1.04 mg/dL (0.60-1.20); Globulin, Blood 3.2 g/dL (2.2-4.0); Potassium, Blood 3.5 mmol/L (3.5-5.5); Total Protein, Blood 6.5 g/dL (6.4-8.2)
--- NOTE | 2023-06-12 06:43 | NUR ---
SHIFT SUMMARY PT ADMITTED AT SHIFT CHANGE, REPORT FROM CLARI RN- PT MEDICATED T/O NIGHT FOR NAUSEA AND PAIN-- PT PLACED ON SPLITTER MACHINE FOR THE NARCTOIC USE, PT OXYGEN SATS 95-97% T/O NIGHT-- PT TOLERATED WELL- BED LOW POSITION, CALL LIGHT WITHIN REACH
--- NOTE | 2023-06-12 07:26 | NUR ---
PT GAVE SELF INSULIN WITH PUMP T/O NIGHT PER ORDER 2100 3.050 UNITS 0240 3.8 UNITS
[2023-06-12 07:27] VITALS: BP 138/84
[2023-06-12 15:08] VITALS: BP 128/83
--- NOTE | 2023-06-12 16:18 | NUR ---
Upon receivinga referral for spiritual care, I visited the patient. He talks about his medical issues, his yaana and family. I provide encouragement and a calming presence. Patient shows signs of an elevated mood. I will continue to remain available to patient and family.
[2023-06-12 19:22] VITALS: BP 133/97
--- NOTE | 2023-06-12 19:44 | NUR ---
SHIFT SUMMARY PATIENT WITH DECREASING NAUSEA TODAY, MEDICATED PER EMAR. NO ZOFRAN NEEDED THROUGHOUT DAY. NO VOMITING TODAY. BLOOD SUGARS GRADUALLY DECREASING TO MORE NORMAL RANGE. PATIENT UP WALKING HALLS TODAY AFTER PREMEDICATED WITH PAIN MEDICATION. PASSING FLATUS, TOLERATING CLEAR LIQUID DIET. PLEASANT AND COOPERATIVE WITH CARE.
[2023-06-13 03:57] VITALS: BP 142/97
--- NOTE | 2023-06-13 04:43 | NUR ---
SHIFT SUMMARY FOREIGN IS ALERT AND FULLY ORIENTED AND COOPERATIVE WITH CARE. PT HAS A LONG HISTORY OF PAIN MANAGEMENT FOR ABD PAIN, AND IS OPIOID TOLERANT. PT INDEPENDENT IN ROOM, HE CALLS APPROPRIATELY. NO ACUTE EVENTS, NO COMPLAINTS. PT IS RESTING IN BED WITH THE CALL LIGHT IN REACH.
[2023-06-13 08:09] VITALS: BP 143/91
[2023-06-13 15:04] VITALS: BP 134/90
--- NOTE | 2023-06-13 16:25 | NUR ---
Patient is lying in bed and alert. Spouse, Malu is present. We discuss the organic diet, the family and the activities they are looking forward to. THey also share about their ayana and the where they see themselves in the future. I listen empathically and provide gentle assistant counsel and prayer. They both respond well and show signs of an elevated mood.
--- NOTE | 2023-06-13 18:03 | NUR ---
SHIFT SUMMARY PT AxOx4. PLEASANT AND COOPERATIVE WITH CARE. PT REPORTED ABDOMINAL PAIN T/O THIS SHIFT. MEDICATED PER EMAR WITH REPORTED RELIEF. PT'S PAIN MEDS WERE ADJUSTED TODAY TO BEGIN WEANING PROCESS. PT TOLERATED LOWER PAIN MED COVERAGE WITHOUT COMPLAINT. HE IS CURRENTLY STILL ALTERNATING IV AND PO NARCOTICS. PT'S DIET WAS ADVANCED TO FULL LIQUID TODAY, WHICH HE REPORTEDLY TOLERATED WELL. HE STATES HE THINKS HE WILL BE READY TO UPGRADE TO REGULAR FOOD BY TOMORROW. PT IS INDEPENDENT IN THE ROOM AND LIKES TO WALK TO HALLS OCCASIONALLY. HIS WAS IN HIS ROOM MOST OF THE DAY. NEW POWERGLIDE WAS PLACED IN THE STAR AFTER PREVIOUS PERIPHERAL IV WAS REMOVED FOR LEAKING. PT IS CURRENTLY SITTING UP IN BED EATING DINNER. DENIES ANY NEEDS AT THIS TIME.
[2023-06-13 19:34] VITALS: BP 122/83
[2023-06-14 03:29] VITALS: BP 150/102
[2023-06-14 06:17] LABS: BASOPHILS ABSOLUTE AUTO 0.05 K/mm3 (0.00-0.23); BASOPHILS PERCENT AUTO 1 % (0-2); EOSINOPHILS ABSOLUTE AUTO 0.24 K/mm3 (0.00-0.68); EOSINOPHILS PERCENT AUTO 5 % (0-6); Hematocrit 28.9 % (37.0-53.0); IMMATURE GRAN ABSOLUTE AUTO 0.01 K/mm3 (0.00-0.10); IMMATURE GRAN PERCENT AUTO 0 % (0-1); LYMPHOCYTES ABSOLUTE AUTO 1.43 K/mm3 (0.84-5.20); LYMPHOCYTES PERCENT AUTO 31 % (21-46); MONOCYTES ABSOLUTE AUTO 0.55 K/mm3 (0.16-1.47); MONOCYTES PERCENT AUTO 12 % (4-13); Mean Corpuscular HGB 31.6 pg (26.0-34.0); Mean Corpuscular HGB Conc 34.6 g/dL (31.5-36.5); Mean Corpuscular Volume 92 fL (80-100); Mean Platelet Volume 9.3 fL (9.1-12.4); NEUTROPHILS ABSOLUTE AUTO 2.33 K/mm3 (1.96-9.15); NEUTROPHILS PERCENT AUTO 51 % (41-73); Platelet Count 279 K/mm3 (150-400); RDW Coefficient Variation 12.7 % (11.7-14.2); RDW Standard Deviation 42.5 fL (35.1-46.3); Red Blood Cell Count 3.16 M/mm3 (4.30-5.90); White Blood Cell Count 4.61 K/mm3 (4.00-11.30)
--- NOTE | 2023-06-14 06:44 | NUR ---
Shift Summary Pt states no nausea this shift, he did c/o severe abdominal pain which he states is getting better. Medicated per EMAR for pain. Pt had multiple bouts of diahrrea through the night which he states has been going on for a while. Pt states he may be ready to go home today.
[2023-06-14 06:47] LABS: Bun/Creatinine Ratio 7.8 (12.0-20.0); Calcium, Blood 8.7 mg/dL (8.5-10.1); Creatinine, Blood 1.03 mg/dL (0.60-1.20); Potassium, Blood 3.5 mmol/L (3.5-5.5)
[2023-06-14 07:34] VITALS: BP 114/84
[2023-06-14 15:00] VITALS: BP 123/85
--- NOTE | 2023-06-14 18:49 | NUR ---
SHIFT SUMMARY A&O X 4, VSS. IS INDEPENDENT IN THE ROOM. PLEASANT & COOPERATIVE WITH ALL CARE. MEDICATED FOR C/O PAIN PER EMAR WITH GOOD RELIEF STATED BY PT. DENIED NAUSEA & DIARRHEA TODAY. LUNCH TIME BG 168 BY PT'S OWN BLOOD GLUCOMETER, INSULIN DOSED BY PT'S INSULIN PUMP 1.7/U, DINNER TIME BG 104 BY PT'S OWN GLUCOMETER, PT DOSED SELF WITH OWN INSULIN PUMP WITH 2.575/U. PT ANTICIPATES BEING ABLE TO BE DC'D HOME TOMORROW. IS CHAY HIS FOOD. BED IN LOW POSITION AND CALL LIGHT WITHIN REACH.
[2023-06-14 19:39] VITALS: BP 129/90
[2023-06-15 04:27] VITALS: BP 124/89
[2023-06-15 05:50] LABS: Bun/Creatinine Ratio 10.9 (12.0-20.0); Calcium, Blood 8.7 mg/dL (8.5-10.1); Creatinine, Blood 1.1 mg/dL (0.60-1.20)
--- NOTE | 2023-06-15 07:25 | NUR ---
Shift Summary No nausea or diahrrea this shift. Pt is having less pain than last night and stated he no longer needs dilauded as of 0000. No overnight events, pt anticipates going home today.
[2023-06-15 07:37] VITALS: BP 182/94
--- NOTE | 2023-06-15 11:42 | NUR ---
DISCHARGE PT POWER GLIDE REMOVED. PRESSURE DRESSING APPLIED. DISCHARGE INSTRUCTIONS REVIEWED WITH PT. PT REFUSED W/C OUT. HE WANTED TO WALK. IN ATTENDANCE. CONTINUE POC.
== END 2023-06-15 11:25 | disposition home or self-care (01) | DRG 74 ==
LOC: ER 10:17 → MEDS 10:18 → EDBEDREQ 16:07 → MEDS 18:50
PROVIDERS: Physician Assistant; ADMIT Internal Medicine
DX: E10.43 Type 1 diabetes mellitus with diabetic autonomic (poly)neuropathy (principal); E87.3 Alkalosis; K31.84 Gastroparesis; E87.5 Hyperkalemia; I10 Essential (primary) hypertension; F32.A Depression, unspecified; E10.65 Type 1 diabetes mellitus with hyperglycemia; E87.6 Hypokalemia; E10.40 Type 1 diabetes mellitus with diabetic neuropathy, unspecified; Z88.5 Allergy status to narcotic agent; Z88.8 Allergy status to other drugs, medicaments and biological substances; Z79.811 Long term (current) use of aromatase inhibitors; Z79.891 Long term (current) use of opiate analgesic; Z79.899 Other long term (current) drug therapy; Z79.4 Long term (current) use of insulin; Z98.890 Other specified postprocedural states; Z93.1 Gastrostomy status
CPT/HCPCS: 36415; 71046; 80048; 80053; 82010; 82803; 82947; 85025; 93005; 93010; 94760; 94762; 96361; 96374; 96375; 96376; 99285-25; A9270; C1751; J1170; J1200; J1650; J2060; J2405; J2765; J7030

== ENCOUNTER 2023-12-02 23:02 | Emergency (ER) | payer MEDICARE, OTHER ==
[~2023-12-02] VITALS: Ht 188 cm; Wt 68.0 kg
[2023-12-03] MEDS ORDERED: Diphth,Pertuss(Acell),Tet Vac 0.5 ML VIAL IM ONE (03:10)
[2023-12-03] MEDS ORDERED: Clindamycin 600mg in D5W 50 ML IV ONE (03:10)
[2023-12-03 03:56] LABS: BASOPHILS ABSOLUTE AUTO 0.08 K/mm3 (0.00-0.23); BASOPHILS PERCENT AUTO 1 % (0-2); EOSINOPHILS ABSOLUTE AUTO 0.45 K/mm3 (0.00-0.68); EOSINOPHILS PERCENT AUTO 7 % (0-6); IMMATURE GRAN ABSOLUTE AUTO 0.01 K/mm3 (0.00-0.10); IMMATURE GRAN PERCENT AUTO 0 % (0-1); LYMPHOCYTES ABSOLUTE AUTO 1.96 K/mm3 (0.84-5.20); LYMPHOCYTES PERCENT AUTO 31 % (21-46); MONOCYTES ABSOLUTE AUTO 0.93 K/mm3 (0.16-1.47); MONOCYTES PERCENT AUTO 15 % (4-13); Mean Corpuscular HGB 31.6 pg (26.0-34.0); Mean Corpuscular HGB Conc 32.1 g/dL (31.5-36.5); Mean Corpuscular Volume 98 fL (80-100); NEUTROPHILS ABSOLUTE AUTO 2.86 K/mm3 (1.96-9.15); NEUTROPHILS PERCENT AUTO 45 % (41-73); Platelet Count 253 K/mm3 (150-400); RDW Coefficient Variation 14.2 % (11.7-14.2); RDW Standard Deviation 51.2 fL (35.1-46.3); Red Blood Cell Count 2.85 M/mm3 (4.30-5.90); White Blood Cell Count 6.29 K/mm3 (4.00-11.30)
[2023-12-03 04:14] LABS: Albumin, Blood 3.3 g/dL (3.4-5.0); Albumin/Globulin Ratio 0.8 (0.8-1.8); Bilirubin, Total 0.4 mg/dL (0.1-1.0); Calcium, Blood 8.5 mg/dL (8.5-10.1); Creatinine, Blood 1.14 mg/dL (0.60-1.20); Globulin, Blood 3.9 g/dL (2.2-4.0); Potassium, Blood 4.4 mmol/L (3.5-5.5); Total Protein, Blood 7.2 g/dL (6.4-8.2)
[2023-12-03] MEDS ORDERED: Cleocin HCl150 MG PO (04:55)
[2023-12-03 05:00] VITALS: BP 103/67
[2023-12-04] MEDS ORDERED: Cleocin HCl150 MG PO (16:58)
== END 2023-12-03 05:05 | disposition home or self-care (01) ==
LOC: ER 23:02
PROVIDERS: Emergency Medicine
DX: S90.821A Blister (nonthermal), right foot, initial encounter (principal); L03.115 Cellulitis of right lower limb; X58.XXXA Exposure to other specified factors, initial encounter; Z23 Encounter for immunization; Z88.8 Allergy status to other drugs, medicaments and biological substances; Z79.899 Other long term (current) drug therapy; E10.43 Type 1 diabetes mellitus with diabetic autonomic (poly)neuropathy; K31.84 Gastroparesis; E10.40 Type 1 diabetes mellitus with diabetic neuropathy, unspecified; I10 Essential (primary) hypertension
CPT/HCPCS: 36415; 73620; 80053; 83605; 85025; 90471; 90715; 96365; 99283-25

== ENCOUNTER 2023-12-04 15:11 | Inpatient (IN) | payer MEDICARE, OTHER ==
[~2023-12-04] VITALS: Ht 188 cm; Wt 68.5 kg
[2023-12-04 15:39] VITALS: BP 177/94
[2023-12-04] MEDS ORDERED: TraZODone HCl 50 MG Tab PO PRN (16:00)
[2023-12-04] MEDS ORDERED: HYDROmorphone HCl 2 MG Tab PO PRN (16:00)
[2023-12-04] MEDS ORDERED: OxyCODONE HCL 5 MG TAB PO PRN (16:15)
[2023-12-04] MEDS ORDERED: Metoprolol Tartrate 1 MG/ML 5 ML VIAL IV PRN (16:20)
[2023-12-04] MEDS ORDERED: NS 1,000 ML IV SCH (16:30)
[2023-12-04] MEDS ORDERED: Cleocin HCl150 MG PO (16:58)
[2023-12-04] MEDS ORDERED: Piperacillin/Tazobactam Sod 4.5 GM in NS 100 ML IV SCH (17:00)
[2023-12-04] MEDS ORDERED: Metoclopramide HCl 5MG / ML 2ML Vial IV SCH (17:00)
[2023-12-04] MEDS ORDERED: HYDROmorphone HCl/Pf 1MG SYR IV PRN (17:07)
[2023-12-04] MEDS ORDERED: Insulin Pump Cartridge MISC SC SCH (18:15)
[2023-12-04 19:38] VITALS: BP 135/91
--- NOTE | 2023-12-04 19:53 | NUR ---
SHIFT SUMMARY/ ADMIT NOTE PT DIRECT ADMIT THIS SHIFT. PT ARRIVED TO ROOM AT ABOUT 1520 VIA WHEELCHAIR. PT WAS MOANING LOUDLY AND HOLDING ABDOMEN. DR AYALA IN ROOM TO ASSESS PATIENT SHORTLY AFTER. PT MEDICATED PER EMAR FOR PAIN, NAUSEA AND FLUIDS PER EMAR. DR AYALA NOTIFIED OF ELEVATED HEART RATE AND BP. PT RESTING COMFORTABLY AT THIS TIME. IV PATENT AND INFUSING AT THIS TIME. PHOTOS OF FOOT WOUND IN CHART. BED IN LOW POSITION, CALL LIGHT WITHIN REACH. PT SIGNED AGREEMENT FOR MANAGING INSULIN PUMP AND AGREES TO NOTIFY NURSE WITH DEXCOM READINGS AND INSULIN DOSAGES. WOUND CARE ORDERS PLACED.
[2023-12-04] MEDS ORDERED: Gabapentin 300 MG Cap PO SCH (21:00)
[2023-12-05 02:46] VITALS: BP 165/91
[2023-12-05 03:56] VITALS: BP 148/87
--- NOTE | 2023-12-05 05:04 | NUR ---
SHIFT SUMMARY PT IS A&O X4, ABLE TO MAKE HIS NEEDS KNOWN. PT. NOTED THAT PT. MOANING WHEN ENTERING THE ROOM; PT. C/ PAIN IN ABDOMEN /WORST, REQUESTING OXYCODONE 10MG TWICE THIS SHIFT, PT REPORTS EFFECTIVE FOR ABDOMINAL PAIN. EYE CONTACT AND COOP WITH CARE, SITTING UPRIGHT WHEN ADMIN.PAIN MEDS. APPEARS WEARY TO INFORM CBG RESULTS,PER THIS NURSE ASSESSMENT. PT. HAS INSULIN PUMP AND CBG CONTINUOUS MONITOR, SEE EMAR FOR CBG AND CORRECTIVE AMOUNTS PER PT. REPORT FOR INSULIN. NO ACUTE EVENTS DURING THIS SHIFT, PT. HAS BEEN RESTING QUIETLY IN BED, NS 2/2 INFUSING. ABX INFUSED ORDERED. WILL HANDOFF TO INCOMING SHIFT NURSE, CALL LIGHT IN REACH, BED AT THE LOWEST POSITION.
[2023-12-05 05:09] LABS: BASOPHILS ABSOLUTE AUTO 0.03 K/mm3 (0.00-0.23); BASOPHILS PERCENT AUTO 0 % (0-2); EOSINOPHILS PERCENT AUTO 0 % (0-6); Hematocrit 27.9 % (37.0-53.0); Hemoglobin 9.1 g/dL (13.5-17.5); IMMATURE GRAN ABSOLUTE AUTO 0.09 K/mm3 (0.00-0.10); IMMATURE GRAN PERCENT AUTO 1 % (0-1); LYMPHOCYTES ABSOLUTE AUTO 0.82 K/mm3 (0.84-5.20); LYMPHOCYTES PERCENT AUTO 7 % (21-46); MONOCYTES ABSOLUTE AUTO 0.55 K/mm3 (0.16-1.47); MONOCYTES PERCENT AUTO 4 % (4-13); Mean Corpuscular HGB 32.2 pg (26.0-34.0); Mean Corpuscular HGB Conc 32.6 g/dL (31.5-36.5); Mean Platelet Volume 8.9 fL (9.1-12.4); NEUTROPHILS ABSOLUTE AUTO 10.89 K/mm3 (1.96-9.15); NEUTROPHILS PERCENT AUTO 88 % (41-73); Platelet Count 307 K/mm3 (150-400); RDW Standard Deviation 50.9 fL (35.1-46.3); Red Blood Cell Count 2.83 M/mm3 (4.30-5.90); White Blood Cell Count 12.38 K/mm3 (4.00-11.30)
[2023-12-05 05:25] LABS: Mean Corpuscular Volume 99 fL (80-100)
[2023-12-05 05:47] LABS: Albumin, Blood 3.3 g/dL (3.4-5.0); Albumin/Globulin Ratio 0.9 (0.8-1.8); Bilirubin, Total 0.9 mg/dL (0.1-1.0); Bun/Creatinine Ratio 25.7 (12.0-20.0); Calcium, Blood 8.2 mg/dL (8.5-10.1); Creatinine, Blood 0.97 mg/dL (0.60-1.20); Globulin, Blood 3.7 g/dL (2.2-4.0)
[2023-12-05 07:51] VITALS: BP 172/103
[2023-12-05] MEDS ORDERED: Ondansetron 4 MG SoluTab MM PRN (08:45)
[2023-12-05] MEDS ORDERED: Insulin Glargine-Yfgn 100 Unit/mL 3 ML SYR SC ONE (09:00)
[2023-12-05] MEDS ORDERED: Enoxaparin 40 MG/0.4 ML SYR SC SCH (09:00)
[2023-12-05] MEDS ORDERED: HYDROmorphone HCl/Pf 1MG SYR IV PRN (14:00)
[2023-12-05] MEDS ORDERED: NS 1,000 ML IV SCH (14:10)
[2023-12-05] MEDS ORDERED: Losartan Potassium 25 MG Tab PO SCH (15:00)
[2023-12-05 16:23] VITALS: BP 163/103
--- NOTE | 2023-12-05 16:36 | NUR ---
Patient is lying in bed and very uncomfortable. He states that he is in bad shape but would appreciate a prayer. I gladly supplies prayer. Patient voices gratitude and asks for a return visit. I will continue to remain available.
[2023-12-05] MEDS ORDERED: Piperacillin/Tazobactam Sod 4.5 GM in NS 100 ML IV SCH (19:00)
--- NOTE | 2023-12-05 19:06 | NUR ---
SHIFT SUMMARY: NO EVENTS OR CHANGES WITH THE PATIENT THROUGHOUT THE SHIFT. HE CONTINUES TO HAVE ABDOMINAL PAIN; HE STATES THAT IT IS A CRAMPING PAIN. CONTINUES TO GET IV DILAUDID AND ORAL OXYCODONE FOR PAIN AND REGLAN AND ZOFRAN FOR NAUSE; NO VOMITING OR DIARRHEA. PT REPORTS THAT STOOLS ARE FORMED. IV ACCESS WAS LOST AT 1700 AND MULTIPLE ATTEMPTS WERE MADE; BUT UNSUCESSFUL. COLOR CONTROL OPERATOR PLACED POWER GLIDE. PATIENT IS IN BED, CALLS APPROPRIATELY, NO SIGNS OR SYMPTOMS OF DISTRESS, PLAN OF CARE ONGOING.
[2023-12-05 20:05] VITALS: BP 150/95
[2023-12-05] MEDS ORDERED: Insulin Glargine-Yfgn 100 Unit/mL 3 ML SYR SC SCH (21:00)
[2023-12-06 02:59] VITALS: BP 153/103
[2023-12-06 06:33] LABS: BASOPHILS ABSOLUTE AUTO 0.02 K/mm3 (0.00-0.23); BASOPHILS PERCENT AUTO 0 % (0-2); EOSINOPHILS ABSOLUTE AUTO 0.03 K/mm3 (0.00-0.68); EOSINOPHILS PERCENT AUTO 0 % (0-6); Hematocrit 24.3 % (37.0-53.0); Hemoglobin 8.5 g/dL (13.5-17.5); IMMATURE GRAN ABSOLUTE AUTO 0.04 K/mm3 (0.00-0.10); IMMATURE GRAN PERCENT AUTO 0 % (0-1); LYMPHOCYTES ABSOLUTE AUTO 0.74 K/mm3 (0.84-5.20); LYMPHOCYTES PERCENT AUTO 7 % (21-46); MONOCYTES ABSOLUTE AUTO 0.63 K/mm3 (0.16-1.47); MONOCYTES PERCENT AUTO 6 % (4-13); Mean Corpuscular HGB 32.8 pg (26.0-34.0); Mean Platelet Volume 8.8 fL (9.1-12.4); NEUTROPHILS PERCENT AUTO 87 % (41-73); Platelet Count 271 K/mm3 (150-400); RDW Coefficient Variation 13.7 % (11.7-14.2); RDW Standard Deviation 46.8 fL (35.1-46.3); Red Blood Cell Count 2.59 M/mm3 (4.30-5.90); White Blood Cell Count 10.86 K/mm3 (4.00-11.30)
--- NOTE | 2023-12-06 06:43 | NUR ---
SHIFT SUMMARY PT. IS A&O X4, COOP WITH CARE, ABLE TO MAKE HIS NEEDS KNOWN. PT. C/O WORST ABDOMINAL PAIN, AND HAS BEEN REQUESTING PAIN MEDICATIONS EXACTLY AT THE ADMIN TIMES T/O THE NIGHT. PT'S IV WAS REMOVED, AND POWERGLIDE INSERTED TO THE LEFT FOREARM DURING THIS SHIFT. NO SWELLING, OR REDNESS NOTED/REPORTED AT THE INSERTION SITE, AND FLUSHING WELL. NO ACUTE EVENTS/DISTRESS NOTED/REPORTED DURING THIS SHIFT. WILL HANDOFF TO THE INCOMING SHIFT NURSE. BED AT THE LOWEST POSITION, CALL LIGHT WITHIN REACH.
[2023-12-06 06:44] LABS: Mean Corpuscular Volume 94 fL (80-100)
[2023-12-06 07:16] VITALS: BP 157/106
[2023-12-06 07:18] LABS: Albumin, Blood 3.1 g/dL (3.4-5.0); Albumin/Globulin Ratio 0.9 (0.8-1.8); Bun/Creatinine Ratio 15.7 (12.0-20.0); Calcium, Blood 8.2 mg/dL (8.5-10.1); Creatinine, Blood 0.96 mg/dL (0.60-1.20); Globulin, Blood 3.6 g/dL (2.2-4.0); Potassium, Blood 3.4 mmol/L (3.5-5.5); Total Protein, Blood 6.7 g/dL (6.4-8.2)
--- NOTE | 2023-12-06 09:00 | NUR ---
Patient is lying in bed and alert. He tells me about his improvement in terms of pain management and feeling less discomfort in his foot and abdomen. He shares about his sources of inspiration and relaxation as he points to his Sikh ayana, gardening, and his family. We talk about the daily struggles he has because of his medical condition and his concerns for the future. I normalize his experience, reinforce his positive attitude and practices and provide therapeutic listening and prayer. Patient responded well and showed signs of being encouraged and having greater peace. I will continue to remain available to patient and family.
[2023-12-06] MEDS ORDERED: HydrALAZINE HCl 20 MG / ML 1ML Vial IV PRN (10:30)
[2023-12-06 15:19] VITALS: BP 158/110
[2023-12-06] MEDS ORDERED: OxyCODONE HCL 5 MG TAB PO PRN (15:55)
--- NOTE | 2023-12-06 16:25 | NUR ---
SHIFT SUMMARY: NO EVENTS OR CHANGES WITH THE PATIENT THROUGHOUT THE SHIFT. HE CONTINUES TO EXPRESS PAIN WITH HIS ABDOMEN AND REQURING FREQUENT PAIN MEDICATION. HE DENIES NAUSEA/VOMITING/DIARRHEA. HIS STOOLS ARE FORMED AND HE IS TOLERATING A CLEAR LIQUID DIET. IMPROVEMENT IN BLOOD SUAGRS TODAY VERSUS YESTERDAY. BESIDES PAIN PATIENT REPORTS THAT HE FEELS BETTER. HE CONTINUES TO GET IV ANITBIOTICS AND WOUND CARE WAS PREFORMED ON HIS R FOOT WOUND TODAY; VISIUALIZED BY DR. TIRADO. PATIENT IN BED, RESTING RESPIRATIONS EVEN AND UNLABORED, CALL LIGHT WITHIN REACH, NO SIGNS OR SYMPTOMS OF DISTRESS, PLAN OF CARE ONGOING.
[2023-12-06 19:40] VITALS: BP 143/102
[2023-12-06] MEDS ORDERED: Metoclopramide HCL Soln 10 MG/10 ML UDC PO SCH (21:00)
[2023-12-07 02:56] VITALS: BP 162/109
[2023-12-07 03:48] VITALS: BP 162/112
[2023-12-07 04:59] LABS: BASOPHILS ABSOLUTE AUTO 0.04 K/mm3 (0.00-0.23); BASOPHILS PERCENT AUTO 1 % (0-2); EOSINOPHILS ABSOLUTE AUTO 0.18 K/mm3 (0.00-0.68); EOSINOPHILS PERCENT AUTO 3 % (0-6); Hematocrit 24.2 % (37.0-53.0); Hemoglobin 8.5 g/dL (13.5-17.5); IMMATURE GRAN ABSOLUTE AUTO 0.02 K/mm3 (0.00-0.10); IMMATURE GRAN PERCENT AUTO 0 % (0-1); LYMPHOCYTES ABSOLUTE AUTO 1.29 K/mm3 (0.84-5.20); LYMPHOCYTES PERCENT AUTO 20 % (21-46); MONOCYTES ABSOLUTE AUTO 0.53 K/mm3 (0.16-1.47); MONOCYTES PERCENT AUTO 8 % (4-13); Mean Corpuscular HGB 32.3 pg (26.0-34.0); Mean Corpuscular HGB Conc 35.1 g/dL (31.5-36.5); Mean Corpuscular Volume 92 fL (80-100); Mean Platelet Volume 8.5 fL (9.1-12.4); NEUTROPHILS ABSOLUTE AUTO 4.47 K/mm3 (1.96-9.15); NEUTROPHILS PERCENT AUTO 68 % (41-73); Platelet Count 259 K/mm3 (150-400); RDW Coefficient Variation 13.2 % (11.7-14.2); RDW Standard Deviation 44.9 fL (35.1-46.3); Red Blood Cell Count 2.63 M/mm3 (4.30-5.90); White Blood Cell Count 6.53 K/mm3 (4.00-11.30)
[2023-12-07 05:49] LABS: Albumin/Globulin Ratio 0.8 (0.8-1.8); Bilirubin, Total 1.1 mg/dL (0.1-1.0); Calcium, Blood 8.6 mg/dL (8.5-10.1); Creatinine, Blood 0.89 mg/dL (0.60-1.20); Globulin, Blood 3.9 g/dL (2.2-4.0); Potassium, Blood 3.4 mmol/L (3.5-5.5); Total Protein, Blood 6.9 g/dL (6.4-8.2)
[2023-12-07 07:25] VITALS: BP 167/112
--- NOTE | 2023-12-07 08:30 | NUR ---
pt a/o 4, rc/o pain throughtout shift medications rendered per orders, hyperbowels, as pt reports bowel activity fluctuates often from hypo to hyper. CBG elevated 292 pt refused lantus and says insulin pump will regulate. labs in am with more stable glucose level. Fall precautions in place call light w/n reach.
[2023-12-07] MEDS ORDERED: Potassium Chloride 20 MEQ TabCR PO SCH (09:00)
[2023-12-07] MEDS ORDERED: Piperacillin/Tazobactam Sod 4.5 GM in NS 100 ML IV SCH (09:00)
[2023-12-07] MEDS ORDERED: LOSA25 PO (12:56)
[2023-12-07] MEDS ORDERED: OXYC10TA19 PO (12:56)
[2023-12-07] MEDS ORDERED: POTA10T PO (12:57)
--- NOTE | 2023-12-07 13:18 | NUR ---
DISCHARGE NOTE: DISCUSSED DISCHARGE WITH PATIENT AND HIS . HE COLLECTED HIS BELONGINS; POWER GLIDE REMOVED. HE WAS WHEELED DOWN VIA WHEELCHAIR BY JORDY. TAKEN DOWN TO [facility] WHERE PATIENT'S PARKED. NO SIGNS OR SYMPTOMS OF DISTRESS DURING DISCHARGE.
== END 2023-12-07 13:17 | disposition home or self-care (01) | DRG 638 ==
LOC: MEDS 15:11 → ENPENDDIS 12-07 12:47 → MEDS 12-07 13:17
PROVIDERS: Family Medicine; ADMIT Internal Medicine
DX: E10.69 Type 1 diabetes mellitus with other specified complication (principal); E87.1 Hypo-osmolality and hyponatremia; E10.43 Type 1 diabetes mellitus with diabetic autonomic (poly)neuropathy; K31.84 Gastroparesis; E10.40 Type 1 diabetes mellitus with diabetic neuropathy, unspecified; F11.90 Opioid use, unspecified, uncomplicated; S91.301A Unspecified open wound, right foot, initial encounter; E86.0 Dehydration; X58.XXXA Exposure to other specified factors, initial encounter; F32.A Depression, unspecified; I10 Essential (primary) hypertension; Z88.5 Allergy status to narcotic agent; Z88.8 Allergy status to other drugs, medicaments and biological substances; Z79.4 Long term (current) use of insulin; Z79.811 Long term (current) use of aromatase inhibitors; Z79.899 Other long term (current) drug therapy
CPT/HCPCS: 36415; 80053; 82947; 83036; 85025; A9270; C1751; J1170; J1650; J1815; J2543; J2765; J7030

== ENCOUNTER → 2024-01-29 | Outpatient (CLI) | payer MEDICARE, OTHER ==
[~2024-01-29] MED LIST changes: +LOSA25 PO; +POTA10T PO
[2024-02-01 06:52] LABS: BUPRENORPHINE GLUC,URN,QUANT <5 ng/mL; BUPRENORPHINE,URN,QUANT <2 ng/mL; NALOXONE,URN,QUANT <100 ng/mL; NORBUPRENORPHINE GLUC,UR,QUANT <5 ng/mL; NORBUPRENORPHINE,URN,QUANT <2 ng/mL
[2024-02-01 07:08] LABS: 11-NOR-9-CARBOXY-THC,URN,QUANT <15 ng/mL
[2024-02-02 13:00] LABS: 6-ACETYLMORPHINE, URN, QUANT <10 ng/mL; CODEINE, URN, QUANT <20 ng/mL; HYDROCODONE, URN, QUANT <20 ng/mL; HYDROMORPHONE, URN, QUANT <20 ng/mL; MORPHINE, URN, QUANT <20 ng/mL; NORHYDROCODONE, URN, QUANT <20 ng/mL; NOROXYCODONE, URN, QUANT 484 ng/mL; NOROXYMORPHONE, URN, QUANT 89 ng/mL; OXYCODONE, URN, QUANT 142 ng/mL; OXYMORPHONE, URN, QUANT <20 ng/mL
== END | disposition home or self-care (01) ==
LOC: LAB SHORT 15:15 → LAB 15:15
PROVIDERS: Family Medicine
DX: Z51.81 Encounter for therapeutic drug level monitoring (principal); Z79.899 Other long term (current) drug therapy
CPT/HCPCS: G0480

== ENCOUNTER → 2024-03-29 | Outpatient (CLI) | payer MEDICARE, OTHER ==
[2024-03-29 14:19] LABS: BASOPHILS ABSOLUTE AUTO 0.03 K/mm3 (0.00-0.23); BASOPHILS PERCENT AUTO 0 % (0-2); EOSINOPHILS ABSOLUTE AUTO 0.01 K/mm3 (0.00-0.68); EOSINOPHILS PERCENT AUTO 0 % (0-6); Hematocrit 43.9 % (37.0-53.0); Hemoglobin 15.2 g/dL (13.5-17.5); IMMATURE GRAN ABSOLUTE AUTO 0.07 K/mm3 (0.00-0.10); IMMATURE GRAN PERCENT AUTO 1 % (0-1); LYMPHOCYTES ABSOLUTE AUTO 1.28 K/mm3 (0.84-5.20); LYMPHOCYTES PERCENT AUTO 9 % (21-46); MONOCYTES ABSOLUTE AUTO 0.84 K/mm3 (0.16-1.47); MONOCYTES PERCENT AUTO 6 % (4-13); Mean Corpuscular HGB 31.5 pg (26.0-34.0); Mean Corpuscular HGB Conc 34.6 g/dL (31.5-36.5); Mean Corpuscular Volume 91 fL (80-100); Mean Platelet Volume 9.3 fL (9.1-12.4); NEUTROPHILS ABSOLUTE AUTO 11.63 K/mm3 (1.96-9.15); NEUTROPHILS PERCENT AUTO 84 % (41-73); Platelet Count 304 K/mm3 (150-400); RDW Coefficient Variation 12.5 % (11.7-14.2); RDW Standard Deviation 41.4 fL (35.1-46.3); Red Blood Cell Count 4.82 M/mm3 (4.30-5.90); White Blood Cell Count 13.86 K/mm3 (4.00-11.30)
[2024-03-29 14:22] LABS: Calcium, Blood 9.1 mg/dL (8.5-10.1); Creatinine, Blood 1.35 mg/dL (0.60-1.20); Potassium, Blood 3.4 mmol/L (3.5-5.5)
== END | disposition home or self-care (01) ==
LOC: LAB 14:14 → LAB SHORT 14:14
PROVIDERS: Family Medicine
DX: E86.0 Dehydration (principal)
CPT/HCPCS: 80048; 85025

== ENCOUNTER 2024-05-06 13:24 | Inpatient (IN) | payer MEDICARE, OTHER ==
[~2024-05-06] VITALS: Ht 185.4 cm; Wt 67.0 kg
[2024-05-06] MEDS ORDERED: NS 1,000 ML IV SCH (13:35)
[2024-05-06] MEDS ORDERED: Ondansetron HCl 2 MG / ML 2ML Vial IV ONE (13:35)
[2024-05-06 16:27] LABS: pH Blood Venous 7.46 (7.34-7.37)
[2024-05-06 16:28] LABS: Base Excess Venous -2.6 mmol/L; Bicarbonate Venous 22.8 mmol/L (24.0-30.0)
[2024-05-06 16:30] LABS: BASOPHILS ABSOLUTE AUTO 0.04 K/mm3 (0.00-0.23); BASOPHILS PERCENT AUTO 0 % (0-2); EOSINOPHILS PERCENT AUTO 0 % (0-6); Hematocrit 42.7 % (37.0-53.0); Hemoglobin 15.4 g/dL (13.5-17.5); IMMATURE GRAN ABSOLUTE AUTO 0.19 K/mm3 (0.00-0.10); IMMATURE GRAN PERCENT AUTO 1 % (0-1); LYMPHOCYTES PERCENT AUTO 5 % (21-46); MONOCYTES ABSOLUTE AUTO 1.02 K/mm3 (0.16-1.47); MONOCYTES PERCENT AUTO 6 % (4-13); Mean Corpuscular HGB 32.2 pg (26.0-34.0); Mean Corpuscular HGB Conc 36.1 g/dL (31.5-36.5); Mean Corpuscular Volume 89 fL (80-100); NEUTROPHILS ABSOLUTE AUTO 15.45 K/mm3 (1.96-9.15); NEUTROPHILS PERCENT AUTO 88 % (41-73); RDW Coefficient Variation 12.7 % (11.7-14.2); RDW Standard Deviation 41.7 fL (35.1-46.3); Red Blood Cell Count 4.78 M/mm3 (4.30-5.90)
[2024-05-06] MEDS ORDERED: Lactated Ringer's 1,000 ML IV ONE ×2 (16:45→20:50)
[2024-05-06] MEDS ORDERED: Metoclopramide HCl 5MG / ML 2ML Vial IV ONE (16:45)
[2024-05-06 16:48] LABS: Mean Platelet Volume 9.4 fL (9.1-12.4); Platelet Count 281 K/mm3 (150-400)
[2024-05-06 17:42] LABS: Albumin, Blood 4.2 g/dL (3.4-5.0); Albumin/Globulin Ratio 0.8 (0.8-1.8); Bilirubin, Total 2.7 mg/dL (0.1-1.0); Calcium, Blood 10.1 mg/dL (8.5-10.1); Potassium, Blood 4.6 mmol/L (3.5-5.5); Total Protein, Blood 9.2 g/dL (6.4-8.2)
[2024-05-06 18:00] LABS: Beta-hydroxybutyrate 33.2 mg/dL (0.2-2.8)
[2024-05-06] MEDS ORDERED: LORazepam 2 MG/ML 1ML Injection IM ONE (18:50)
[2024-05-06 19:50] LABS: Base Excess Venous -2.9 mmol/L; Bicarbonate Venous 23.4 mmol/L (24.0-30.0); PCO2 Venous 23.3 mmHg (38-42); pH Blood Venous 7.54 (7.34-7.37)
[2024-05-06] MEDS ORDERED: Morphine Sulfate 4 MG/1 ML Injection IV ONE (20:00)
[2024-05-06 21:43] LABS: Alanine Aminotransfer (ALT/SGP 19 U/L (12-78); Albumin, Blood 3.8 g/dL (3.4-5.0); Alk Phos 50 U/L (50-136); Anion Gap 21 mmol/L (3-11); Aspartate Aminotrans (AST/SGOT 18 U/L (12-37); Bilirubin, Total 2.1 mg/dL (0.1-1.0); Blood Urea Nitrogen 29 mg/dL (8-24); Bun/Creatinine Ratio 27.1 (12.0-20.0); CO2, Blood 18 mmol/L (21-32); Calcium, Blood 9.4 mg/dL (8.5-10.1); Chloride, Blood 96 mmol/L (98-108); Creatinine, Blood 1.07 mg/dL (0.60-1.20); Globulin, Blood 3.9 g/dL (2.2-4.0); Glomerular Filtration Rate 83 (60-); Glucose, Blood 357 mg/dL (70-99); Potassium, Blood 3.7 mmol/L (3.5-5.5); Sodium, Blood 131 mmol/L (136-145); Total Protein, Blood 7.7 g/dL (6.4-8.2)
[2024-05-06] MEDS ORDERED: Insulin Human Regular 100 UNIT in NS 100 ML IV SCH (22:10)
[2024-05-06] MEDS ORDERED: Potassium Chl 20MEQ/Water100ML 100 ML IV ONE (22:10)
[2024-05-06 22:57] LABS: Acetaminophen, Random <2.0 ug/mL (10.0-30.0); Ethanol (Alcohol), Blood, Med <3 mg/dL; Salicylate <1.7 mg/dL (2.8-20.0)
[2024-05-06] MEDS ORDERED: Acetaminophen 650 MG Supp PR PRN (23:20)
[2024-05-06] MEDS ORDERED: Bisacodyl 10 MG Supp PR PRN (23:20)
[2024-05-06] MEDS ORDERED: FLU VACC TS2024-25(6MOS UP)/PF 45 MCG/0.5 ML SYRINGE IM ONE (23:25)
[2024-05-06] MEDS ORDERED: Magnesium Hydroxide Conc 10 ML UDC PO PRN (23:25)
[2024-05-06] MEDS ORDERED: Acetaminophen 325 MG TABLET PO PRN (23:25)
[2024-05-06] MEDS ORDERED: Ondansetron HCl 2 MG / ML 2ML Vial IV PRN (23:30)
[2024-05-06] MEDS ORDERED: Dextrose 50% 50 ML Syringe IV PRN (23:30)
[2024-05-07] VITALS (62 sets, daily range): BP systolic 115–204; BP diastolic 70–166
[2024-05-07] MEDS ORDERED: NS KCl 20mEq 1,000 ML IV SCH
[2024-05-07] MEDS ORDERED: Insulin Human Regular 100 UNIT in NS 100 ML IV SCH (00:05)
--- NOTE | 2024-05-07 00:52 | NUR ---
PT ARRIVES TO UNIT AT 0023. ATTEMPTS TO ESTABLISH ACCESS MADE BY STAFF W/ OUT SUCCESS. PT PLACED ON EXPERIMENTAL FLIGHT TEST MECHANIC- SINUS TACH IN THE 120S. PT IS HYPERTENSIVE AT 200S SYSTOLIC. PT IS ON ROOM AIR, SATS ARE 100% PT IS GASPING WITH LABORED RESPIRATIONS. REPORTS PAIN TO ABDOMEN. PT ALERT AND ORIENTED. ANSWERING QUESTIONS APPROPRIATELY W/ ONE WORD ANSWERS. PT ATTEMPTS TO PROVIDE URINE SAMPLE- UNABLE TO VOID AT THIS TIME. CBG CHECKED- 373. DR. RAMÍREZ AND RESIDENT TO ROOM TO PLACE CENTRAL LINE- IN PROGRESS.
[2024-05-07] MEDS ORDERED: NS 1,000 ML IV SCH (01:35)
[2024-05-07 02:00] LABS: Bun/Creatinine Ratio 31.4 (12.0-20.0); Calcium, Blood 8.9 mg/dL (8.5-10.1); Creatinine, Blood 1.05 mg/dL (0.60-1.20); Magnesium, Blood 1.5 mg/dL (1.6-2.4); Phosphorus, Blood 2.7 mg/dL (2.5-4.9); Potassium, Blood 3.8 mmol/L (3.5-5.5)
[2024-05-07] MEDS ORDERED: HydrALAZINE HCl 20 MG / ML 1ML Vial IV PRN (02:17)
[2024-05-07 02:41] LABS: Source, Urine Clean Catch
[2024-05-07 02:47] LABS: Bilirubin, Urine Neg (Neg); Blood, Urine 2+ (Neg); Glucose Qualitative, Urine 4+ (Neg); Ketones, Urine 3+ (Neg); Leukocyte Esterase, Urine Neg (Neg); Nitrite, Urine Neg (Neg); Protein, Urine 3+ (Neg); Specific Gravity, Urine 1.015 (1.003-1.022); Urobilinogen, Urine NORM (Normal)
[2024-05-07 03:06] LABS: U Amphetamine Screen Not Detected; U Barbituate Screen Not Detected; U Benzodiazapine Screen Not Detected; U Buprenorphine Screen Not Detected; U Cannabinoids Screen DETECTED; U Cocaine Screen Not Detected; U Methadone Screen Not Detected; U Methamphetamine Screen Not Detected; U Opiates Screen DETECTED; U Oxycodone Screen DETECTED; U Phencyclidine Screen Not Detected
[2024-05-07 03:14] LABS: Appearance, Urine Clear (Clear); Color, Urine Pale Yellow (P-Yellow)
[2024-05-07 03:15] LABS: Bacteria Few /hpf; Red Blood Cells, Urine 0-2 /hpf (0-2); Squamous Epithelial Cells Few /hpf (Few); White Blood Cells, Urine 0-2 /hpf (0-5)
--- NOTE | 2024-05-07 03:21 | NUR ---
Provider contacted Dr. Bowles called regarding pt restlessness and sustained tachycardia- rate of 140s. Pt is also remains hypertensive- medicated per emar w/ prn hydralazine.
[2024-05-07] MEDS ORDERED: Magnesium Sulf 2 GM/Water 50ML 50 ML IV ONE (03:55)
[2024-05-07] MEDS ORDERED: LORazepam 2 MG/ML 1ML Injection IV ONE (04:00)
[2024-05-07] MEDS ORDERED: FentaNYL Citrate 50 MCG/ML 2 ML Injection IV PRN ×2 (04:10→05:30)
[2024-05-07 04:19] LABS: Bun/Creatinine Ratio 30.4 (12.0-20.0); Calcium, Blood 8.8 mg/dL (8.5-10.1); Creatinine, Blood 1.12 mg/dL (0.60-1.20); Potassium, Blood 3.7 mmol/L (3.5-5.5)
--- NOTE | 2024-05-07 04:20 | NUR ---
PROVIDER CONTACTED- DR. RAMÍREZ- FOR CONTINUED TACHYCARDIA, RESTLESSNESS, AND HYPERTENSION. PT TAKES PO OXYCODONE AT HOME FOR CHRONIC PAIN. IS CURRENTLY C/O PAIN TO ABDOMEN. ORDERS RECIEVED FOR PRN MEDICATION. SITTER REMAINS PRESENT AT BEDSIDE FOR CONTINUOUS MONITORING.
--- NOTE | 2024-05-07 05:07 | NUR ---
End of shift summary Pt confused and requring redirection frequently. Sitter at bedside for 1:1 monitoring. Pt restless on bed, continues to report abdominal pain. Pt was given prn pain medication 25mg fentanyl with good effect for approx 1 hr. Pt was also medicated w/ iv ativan, effect was minimal. Pt has insulin ggt @3 units/hr. NS w/ 20meq potassium also infusing @200ml/hr. Pt remains on room air, o2 sats 100%. Pt tachycardic on continuous monitor-rate of 110-120s. Pt also hypertensive w/ systolics ranging from 150-190s. Pt given prn dose of hydralazine w/ minimal effect. Pt up at bedside to use urinal, 700ml of pale, clear urine voided. Specimen collected and sent to lab for analysis. Plan of care ongoing.
--- NOTE | 2024-05-07 05:25 | NUR ---
DR. RAMÍREZ CONTACTED AND UPDATE ON PT CONDITION D/T HYPERTENSION AND TACHYCARDIA. ORDERS RECIEVED TO INCREASE FREQUENCY OF PRN PAIN MEDICATION.
[2024-05-07] MEDS ORDERED: Lactated Ringer's 1,000 ML IV SCH (06:00)
[2024-05-07] MEDS ORDERED: Potassium Chl 20MEQ/Water100ML 100 ML IV SCH (06:00)
[2024-05-07] MEDS ORDERED: Metoclopramide HCl 5MG / ML 2ML Vial IV PRN (07:45)
[2024-05-07] MEDS ORDERED: Prochlorperazine Edisylate 10 mg Vial IV PRN (07:45)
[2024-05-07] MEDS ORDERED: Enoxaparin 40 MG/0.4 ML SYR SC SCH (09:00)
[2024-05-07] MEDS ORDERED: Lactobacil 2-S.Thermo-Bifido 1 1 Cap PO SCH (09:00)
[2024-05-07] MEDS ORDERED: Docusate Sodium 100 MG Cap PO SCH (09:00)
[2024-05-07] MEDS ORDERED: Sennosides 8.6 MG Tab PO SCH (09:00)
[2024-05-07 09:15] LABS: Base Excess Venous -2.8 mmol/L; Bicarbonate Venous 22.5 mmol/L (24.0-30.0); PCO2 Venous 34.1 mmHg (38-42); pH Blood Venous 7.41 (7.34-7.37)
[2024-05-07 10:24] LABS: Bun/Creatinine Ratio 34.9 (12.0-20.0); Calcium, Blood 8.5 mg/dL (8.5-10.1); Creatinine, Blood 1.06 mg/dL (0.60-1.20); Magnesium, Blood 2.6 mg/dL (1.6-2.4); Phosphorus, Blood 1.5 mg/dL (2.5-4.9); Potassium, Blood 4.1 mmol/L (3.5-5.5)
[2024-05-07] MEDS ORDERED: D5W-1/2NS 1,000 ML IV SCH (10:50)
[2024-05-07] MEDS ORDERED: Potassium Phosphate Dibasic 20 MM in Dextrose 5% 500 ML IV STA (11:02)
--- NOTE | 2024-05-07 11:29 | NUR ---
Patient is lying in bed and resting, but awakens to the sound of his name. He struggles to stay awake though but he does recognize me and welcomes my prayer. I gladly provided prayer and then allow him to return to his restful state. I will continue to remmain available to patient and family.
[2024-05-07] MEDS ORDERED: Labetalol HCL 5 MG/ML 4ML Injection (Single Dose) IV PRN (11:50)
[2024-05-07] MEDS ORDERED: Lidocaine 2% Jelly Uro-Jet UR ONE (12:50)
[2024-05-07 13:21] LABS: Bun/Creatinine Ratio 33.3 (12.0-20.0); Calcium, Blood 8.7 mg/dL (8.5-10.1); Creatinine, Blood 1.08 mg/dL (0.60-1.20); Potassium, Blood 3.5 mmol/L (3.5-5.5)
[2024-05-07] MEDS ORDERED: Pantoprazole Sodium 40 MG Injection IV SCH (13:29)
[2024-05-07 15:47] LABS: Bun/Creatinine Ratio 31.4 (12.0-20.0); Calcium, Blood 8.3 mg/dL (8.5-10.1); Creatinine, Blood 1.05 mg/dL (0.60-1.20); Potassium, Blood 3.3 mmol/L (3.5-5.5)
[2024-05-07] MEDS ORDERED: D5W-1/2NS KCl 20mEq 1,000 ML IV SCH (16:10)
[2024-05-07] MEDS ORDERED: Potassium Chl 20MEQ/Water100ML 100 ML IV ONE (16:10)
[2024-05-07 18:37] LABS: Bun/Creatinine Ratio 28.2 (12.0-20.0); Calcium, Blood 8.3 mg/dL (8.5-10.1); Creatinine, Blood 1.1 mg/dL (0.60-1.20); Potassium, Blood 3.5 mmol/L (3.5-5.5)
[2024-05-07] MEDS ORDERED: DEPO-TESTO200 MG/1 M IM (18:49)
[2024-05-07 21:54] LABS: Bun/Creatinine Ratio 26.9 (12.0-20.0); Calcium, Blood 7.8 mg/dL (8.5-10.1); Creatinine, Blood 1.04 mg/dL (0.60-1.20); Potassium, Blood 3.5 mmol/L (3.5-5.5)
[2024-05-08] VITALS (23 sets, daily range): BP systolic 133–183; BP diastolic 85–119
[2024-05-08 01:08] LABS: Bun/Creatinine Ratio 22.5 (12.0-20.0); Calcium, Blood 8.1 mg/dL (8.5-10.1); Creatinine, Blood 1.02 mg/dL (0.60-1.20); Potassium, Blood 3.4 mmol/L (3.5-5.5)
[2024-05-08] MEDS ORDERED: OxyCODONE HCL 5 MG TAB PO PRN (01:20)
[2024-05-08] MEDS ORDERED: Potassium Chloride 40 MEQ IV SCH ×2 (02:05→05:55)
[2024-05-08] MEDS ORDERED: Potassium Chl 20MEQ/Water100ML 100 ML IV SCH (02:20)
[2024-05-08] MEDS ORDERED: Dextrose 5% 1,000 ML IV SCH (02:40)
--- NOTE | 2024-05-08 02:54 | NUR ---
SPOKE TO DR WALLER, ORDERS TO CONTINUE THE INSULIN DRIP, CHANGE FLUIDS AND REPLACE POTASSIUM-SEE ORDERS. MD AWARE OF CURRENT LAB VALUES.
[2024-05-08 05:49] LABS: BASOPHILS ABSOLUTE AUTO 0.01 K/mm3 (0.00-0.23); BASOPHILS PERCENT AUTO 0 % (0-2); EOSINOPHILS ABSOLUTE AUTO 0.02 K/mm3 (0.00-0.68); EOSINOPHILS PERCENT AUTO 0 % (0-6); Hematocrit 34.2 % (37.0-53.0); Hemoglobin 11.9 g/dL (13.5-17.5); IMMATURE GRAN ABSOLUTE AUTO 0.04 K/mm3 (0.00-0.10); IMMATURE GRAN PERCENT AUTO 0 % (0-1); LYMPHOCYTES ABSOLUTE AUTO 1.52 K/mm3 (0.84-5.20); LYMPHOCYTES PERCENT AUTO 14 % (21-46); MONOCYTES ABSOLUTE AUTO 1.05 K/mm3 (0.16-1.47); MONOCYTES PERCENT AUTO 10 % (4-13); Mean Corpuscular HGB 31.4 pg (26.0-34.0); Mean Corpuscular HGB Conc 34.8 g/dL (31.5-36.5); Mean Corpuscular Volume 90 fL (80-100); Mean Platelet Volume 10.1 fL (9.1-12.4); NEUTROPHILS ABSOLUTE AUTO 8.29 K/mm3 (1.96-9.15); NEUTROPHILS PERCENT AUTO 76 % (41-73); Platelet Count 231 K/mm3 (150-400); RDW Coefficient Variation 12.8 % (11.7-14.2); RDW Standard Deviation 42.4 fL (35.1-46.3); Red Blood Cell Count 3.79 M/mm3 (4.30-5.90); White Blood Cell Count 10.93 K/mm3 (4.00-11.30)
[2024-05-08 06:19] LABS: Bun/Creatinine Ratio 19.2 (12.0-20.0); Calcium, Blood 8.1 mg/dL (8.5-10.1); Creatinine, Blood 1.04 mg/dL (0.60-1.20); Potassium, Blood 4.1 mmol/L (3.5-5.5)
--- NOTE | 2024-05-08 07:22 | NUR ---
DR WALLER STATED TO HOLD POTASSIUM FOR NOW.
--- NOTE | 2024-05-08 07:23 | NUR ---
SHIFT SUMMERY PT IS ALERT AND ORIENTED X4, INSULIN GTT INFUSING PER MD ORDER. PG INFILTRATED ON THE LEFT AND WAS REPLACED W/PG ON THE RIGHT. PT IS NPO, AFEBRILE. VOIDS IN THE URINAL. PT WAS MEDICATED FOR PAIN, SEE EMAR. PT HAD NO VOMITING OVERNIGHT.
[2024-05-08 11:27] LABS: Bun/Creatinine Ratio 18.4 (12.0-20.0); Calcium, Blood 7.7 mg/dL (8.5-10.1); Creatinine, Blood 1.03 mg/dL (0.60-1.20); Potassium, Blood 3.8 mmol/L (3.5-5.5)
[2024-05-08] MEDS ORDERED: CefTRIAXone Sodium 1,000 MG in NS 100 ML IV SCH (12:05)
[2024-05-08] MEDS ORDERED: D5W-1/2NS KCl 20mEq 1,000 ML IV SCH (12:10)
[2024-05-08 14:53] LABS: Bun/Creatinine Ratio 15.9 (12.0-20.0); Calcium, Blood 7.9 mg/dL (8.5-10.1); Creatinine, Blood 1.07 mg/dL (0.60-1.20); Potassium, Blood 3.9 mmol/L (3.5-5.5)
[2024-05-08] MEDS ORDERED: Insulin Glargine-Yfgn 100 Unit/mL 3 ML SYR SC ONE (15:20)
[2024-05-08] MEDS ORDERED: NS 1,000 ML IV SCH (15:25)
[2024-05-08] MEDS ORDERED: Insulin Human Lispro 100 Units/ML 3ML Syringe SC SCH (16:30)
--- NOTE | 2024-05-08 17:44 | NUR ---
SHIFT SUMMARY PATIENT HAS BEEN ALERT AND ORIENTED X4 ALL SHIFT. HE IS ABLE TO ANSWER QUESTIONS APPROPRIATELY AND FOLLOW COMMANDS. HE WAS ABLE TO COME OFF OF HIS INSULIN DRIP AND D5W, TRANSITIONING TO SUBQ INSULN PER EMAR. HIS MIDLINE DRAWS AND FLUSHES WELL AND 100ML/HR OF NS IS RUNNING FOR MAINTAINCE FLUIDS. PT HAS A GOOD APPETITE AND IS EATING CLEAR LIQUID DIET, ADVANCED TO CARB CONCIOUS APPROPRIATE. SYSTOLIC BP 130-150S WIHT MAP >70. HR HAS BEEN 70-80S. PT RESPIRATIONS HAVE BEEN UNLABORED WITH SPO2 >98 ON RA. HE HAS APNEA WHEN HE SLEEPS BUT OXYGEN SATS REMAIN WITHIN NORMAL LIMITS. PT HAD LARGE WELL FORMED BOWEL MOVEMENT THIS MORNING AND USES BEDSIDE TOILET. HE UTILIZES HIS BESIDE URINAL WITH CLEAR DARK YELLOW URINE. PT VISITED AND WAS UPDATED ON PLAN OF CARE. BED IN LOWEST POSTION AND CALL LIGHT IN REACH.
--- NOTE | 2024-05-08 20:58 | NUR ---
ASSUMPTION OF CARE: Pt A&Ox4 on room air, moving around in bed independently. PT pain managed per EMAR, complaint only of being cold. Have provided warm blankets and tea. Pt hypertensive MAP >100 and normal sinus rhythm rate 80s-90s. SPO2 >96%.
--- NOTE | 2024-05-08 22:11 | NUR ---
PT TAKEN TO ROOM 358, CARE TRANSFERRED TO RN
--- NOTE | 2024-05-08 22:50 | NUR ---
PT WAS TRANSFERRED FROM ICU TO ROOM 358. PT ALERT ORIENTED X 4 ABLE TO VERBALIZE NEEDS. SKIN CHECK IS GOOD. PT WAS ORIENTED TO NEW ROOM. VSS AT THIS TIME. RESTING IN BED AT THIS TIME.
[2024-05-09] VITALS (11 sets, daily range): BP systolic 139–197; BP diastolic 82–110
--- NOTE | 2024-05-09 04:11 | NUR ---
SHIFT SUMMARY; PT ARRIVED AT 2205 FROM ICU. HES ALERT ORIENTED X 4. BP RUNS HIGH. HE REQUIRED 2 DOSES OF HYDRALAZINE. BP WAS 173/98 AND 197/109. HE AMBULATES TO THE BATHROOM WITH SBA. REMAINS ON A CLEAR LIQUID DIET ADVANCE CHAY. I ASKED HIM IF HE WANTED TO ADVANCE AND HE SAID NO TO LEAVE IT AT CLEAR FOR NOW. HE C/O ABD PAIN R/T HIS GASTROPARESIS. MEDICATED WITH OXY WITH GOOD PAIN RELIEF. HIS FS ARE AC AND HS. HE WAS 221 AT HS. REMAINS ON RA SATTING WELL/ HE HAS A POWER GLIDE INTACT TO HIS RT ARM. ITS FLUSHING WELL. HE WAS ON A INSULIN DRIP IN THE ICU AND WAS TAKEN OFF AT 1600 YESTERDAY. HE STAYED AWAKE MOST OF THE NIGHT. HE KEEPS STATING THAT HES FREEZING EVEN AFTER HEATERS TURNED ALL THE WAY UP AND HE HAS SEVERAL BLANKETS ON HIM. HES RESTING AT THIS TIME.
[2024-05-09] MEDS ORDERED: FentaNYL Citrate 50 MCG/ML 2 ML Injection IV PRN (05:05)
[2024-05-09] MEDS ORDERED: Pantoprazole Sodium 40 MG Tab PO SCH (06:00)
[2024-05-09 08:54] LABS: BASOPHILS ABSOLUTE AUTO 0.02 K/mm3 (0.00-0.23); BASOPHILS PERCENT AUTO 0 % (0-2); EOSINOPHILS ABSOLUTE AUTO 0.09 K/mm3 (0.00-0.68); EOSINOPHILS PERCENT AUTO 1 % (0-6); Hematocrit 35.5 % (37.0-53.0); IMMATURE GRAN ABSOLUTE AUTO 0.03 K/mm3 (0.00-0.10); IMMATURE GRAN PERCENT AUTO 0 % (0-1); LYMPHOCYTES ABSOLUTE AUTO 0.87 K/mm3 (0.84-5.20); LYMPHOCYTES PERCENT AUTO 11 % (21-46); MONOCYTES ABSOLUTE AUTO 0.75 K/mm3 (0.16-1.47); MONOCYTES PERCENT AUTO 9 % (4-13); Mean Corpuscular HGB 30.6 pg (26.0-34.0); Mean Corpuscular HGB Conc 33.8 g/dL (31.5-36.5); Mean Corpuscular Volume 91 fL (80-100); Mean Platelet Volume 9.7 fL (9.1-12.4); NEUTROPHILS ABSOLUTE AUTO 6.37 K/mm3 (1.96-9.15); NEUTROPHILS PERCENT AUTO 78 % (41-73); Platelet Count 216 K/mm3 (150-400); RDW Coefficient Variation 12.8 % (11.7-14.2); Red Blood Cell Count 3.92 M/mm3 (4.30-5.90); White Blood Cell Count 8.13 K/mm3 (4.00-11.30)
[2024-05-09 09:22] LABS: Albumin, Blood 3.3 g/dL (3.4-5.0); Albumin/Globulin Ratio 0.9 (0.8-1.8); Bilirubin, Total 1.6 mg/dL (0.1-1.0); Bun/Creatinine Ratio 12.1 (12.0-20.0); Creatinine, Blood 0.91 mg/dL (0.60-1.20); Globulin, Blood 3.7 g/dL (2.2-4.0); Potassium, Blood 3.9 mmol/L (3.5-5.5)
[2024-05-09] MEDS ORDERED: Insulin Glargine-Yfgn 100 Unit/mL 3 ML SYR SC ONE (12:20)
[2024-05-09] MEDS ORDERED: Insulin Human Lispro 100 Units/ML 3ML Syringe SC SCH (16:30)
--- NOTE | 2024-05-09 17:39 | NUR ---
SHIFT SUMMARY: PATIENT A/OX4, PLEASANT AND COOPERATIVE c CARE. PATIENT DENIES CP/PRESSURE, SOB, N/V AND DIZZINESS. HYPERTENSIVE, MEDICATED c SCHEDULED AND PRN BP MEDS c MOD EFFECT. PATIENT CBG BEFORE BREAKFAST 289, BEFORE LUNCH 322 AND BEFORE DINNER 244, MEDICATED c INSULIN PER EMAR SS COVERAGE. PATIENT HAS MOD APPETITE, CONTINENT OF BOWEL/BLADDER, AMBULATES IN ROOM AND HALLWAY INDEPENDENTLY T/O SHIFT. PATIENT PAIN TO ABDOMEN WELL CONTROLLED c EMAR PAIN MEDS. PATIENT HAS NO COMPLAINTS OR DENIES NEW CONCERNED THIS SHIFT. CALL LIGHT IN REACH.
[2024-05-09] MEDS ORDERED: Insulin Glargine-Yfgn 100 Unit/mL 3 ML SYR SC SCH ×2 (21:00→22:00)
[2024-05-09] MEDS ORDERED: Insulin Human Lispro 100 Units/ML 3ML Syringe SC ONE (23:10)
[2024-05-10 03:06] VITALS: BP 160/103
--- NOTE | 2024-05-10 04:04 | NUR ---
PT UPSET WITH PT CARE AND PAIN MEDS. TEACHING DONE REGARDING PAIN MEDS AND MD'S INTENTION TO DISCHARGE IN AM. CELESTE (PHLEBOTOMY TECHNOLOGIST} NOTIFIED OF PT C/O. CELESTE AT BEDSIDE. PT RESTING QUIETLY IN BED WITH EYES CLOSED AT THIS TIME. FSBG ELEVATED. DR. TENA NOTIFIED X2 OF PT STATUS AND ORDERS RECEIVED. HOSPITALIST NOTIFIED PER DR. COELLO REQUEST,
[2024-05-10 04:59] LABS: BASOPHILS ABSOLUTE AUTO 0.02 K/mm3 (0.00-0.23); BASOPHILS PERCENT AUTO 0 % (0-2); EOSINOPHILS ABSOLUTE AUTO 0.11 K/mm3 (0.00-0.68); EOSINOPHILS PERCENT AUTO 2 % (0-6); Hemoglobin 11.2 g/dL (13.5-17.5); IMMATURE GRAN ABSOLUTE AUTO 0.01 K/mm3 (0.00-0.10); IMMATURE GRAN PERCENT AUTO 0 % (0-1); LYMPHOCYTES ABSOLUTE AUTO 1.66 K/mm3 (0.84-5.20); LYMPHOCYTES PERCENT AUTO 27 % (21-46); MONOCYTES ABSOLUTE AUTO 0.83 K/mm3 (0.16-1.47); MONOCYTES PERCENT AUTO 14 % (4-13); Mean Corpuscular HGB 31.3 pg (26.0-34.0); Mean Corpuscular Volume 89 fL (80-100); Mean Platelet Volume 9.3 fL (9.1-12.4); NEUTROPHILS ABSOLUTE AUTO 3.53 K/mm3 (1.96-9.15); NEUTROPHILS PERCENT AUTO 57 % (41-73); Platelet Count 196 K/mm3 (150-400); RDW Coefficient Variation 12.5 % (11.7-14.2); RDW Standard Deviation 41.3 fL (35.1-46.3); Red Blood Cell Count 3.58 M/mm3 (4.30-5.90); White Blood Cell Count 6.16 K/mm3 (4.00-11.30)
[2024-05-10 05:26] LABS: Albumin, Blood 3.3 g/dL (3.4-5.0); Bun/Creatinine Ratio 15.2 (12.0-20.0); Calcium, Blood 8.6 mg/dL (8.5-10.1); Creatinine, Blood 1.05 mg/dL (0.60-1.20); Globulin, Blood 3.4 g/dL (2.2-4.0); Total Protein, Blood 6.7 g/dL (6.4-8.2)
[2024-05-10 07:28] VITALS: BP 169/104
[2024-05-10] MEDS ORDERED: Insulin Human Lispro 100 Units/ML 3ML Syringe SC SCH ×2 (07:30→08:30)
[2024-05-10 08:01] VITALS: BP 152/102
[2024-05-10] MEDS ORDERED: Insulin Glargine-Yfgn 100 Unit/mL 3 ML SYR SC SCH (09:00)
[2024-05-10] MEDS ORDERED: Losartan Potassium 25 MG Tab PO ONE (13:25)
[2024-05-10 13:31] VITALS: BP 131/87
--- NOTE | 2024-05-10 14:10 | NUR ---
SHIFT/DISCHARGE SUMMARY: NO NEW CHANGES IN PATIENT CONDITION THIS SHIFT. PATIENT A/OX4, PLEASANT AND COOPERATIVE c CARE. PATIENT CBG BEFORE BREAKFAST WAS 82 AND 150 BEFORE LUNCH. PATIENT RECEIVED SCHEDULED MEDS AND INSULIN PER EMAR SS COVERAGE. SBP HAS IMPROVED, MEDICATED c OT DOSE OF BP MEDS PER ORDER PRIOR TO DISCHARGE. PATIENT HAS GOOD APPETITE, CONTINENT OF BLADDER AND AMBULATES TO BATHROOM/HALLWAY INDEPENDENTLY. PATIENT HAS NO COMPLAINTS OR DENIES NEW CONCERNED THIS SHIFT. PATIENT DISCHARGE HOME. DISCHARGE INSTRUCTIONS PACKET GIVEN TO PATIENT. EDUCATED PATIENT AND SPOUSE AT BEDSIDE REGARDING ADMITTING DX'S OF DKA, S/S, TX, CBG CHECK, SELF CARE AND TO F/U c PCP. PATIENT AND SPOUSE VERBALIZED UNDERSTANDING AND NO FURTHER QUESTIONS. PATIENT HAS NO NEW RX ORDER, RESUME HOME MEDS. ALL PATIENT PERSONAL BELONGINGS WERE SENT HOME c THE PATIENT. PATIENT LEFT THE ROOM AT 1408 ACCOMPANIED BY SPOUSE. PATIENT DECLINED TO BE TRANSPORTED VIA WHEELCHAIR.
[2024-05-10] MEDS ORDERED: PANT40 PO (14:38)
== END 2024-05-10 14:28 | disposition home or self-care (01) | DRG 637 ==
LOC: ER 13:24 → ICUE 23:18 → MEDS 05-08 22:05 → ENPENDDIS 05-10 14:06 → MEDS 05-10 14:28
PROVIDERS: Internal Medicine; Physician Assistant; Student in an Organized Health Care Education/Training Program; ADMIT Student in an Organized Health Care Education/Training Program
PROC: 02HV33Z Insertion of Infusion Device into Superior Vena Cava, Percutaneous Approach (ICD-10-PCS; principal; 2024-05-07)
PROC: B548ZZA Ultrasonography of Superior Vena Cava, Guidance (ICD-10-PCS; 2024-05-07)
DX: E10.10 Type 1 diabetes mellitus with ketoacidosis without coma (principal); G92.8 Other toxic encephalopathy; K31.84 Gastroparesis; E87.6 Hypokalemia; E10.43 Type 1 diabetes mellitus with diabetic autonomic (poly)neuropathy; E10.40 Type 1 diabetes mellitus with diabetic neuropathy, unspecified; Z88.8 Allergy status to other drugs, medicaments and biological substances; Z79.899 Other long term (current) drug therapy; E83.39 Other disorders of phosphorus metabolism
CPT/HCPCS: 36415; 36556; 51701; 71045; 74176; 80048; 80053; 80320; 81001; 82010; 82803; 82947; 83690; 83735; 84100; 85025; 87040; 93005; 93010; 96361-59; 96374-59; 96375-59; 99285-25; A9270; C1751; G0480; J0360; J0696; J0780; J1650; J1815; J2060; J2270; J2405; J2470; J2765; J3010; J3475; J3480; J7030; J7042; J7060; J7070; J7120

== ENCOUNTER 2024-05-30 20:26 | Inpatient (IN) | payer MEDICARE, OTHER ==
[~2024-05-30] VITALS: Ht 182.9 cm; Wt 65.9 kg
[~2024-05-30 20:26] MED LIST changes: +DEPO-TESTO200 MG/1 M IM
[2024-05-30] MEDS ORDERED: Lactated Ringer's 1,000 ML IV ONE ×2 (21:20→23:05)
[2024-05-30] MEDS ORDERED: Droperidol 5 mg/2 ml Vial IV ONE ×2 (21:20→23:05)
[2024-05-30 22:16] LABS: BASOPHILS ABSOLUTE AUTO 0.02 K/mm3 (0.00-0.23); BASOPHILS PERCENT AUTO 0 % (0-2); EOSINOPHILS PERCENT AUTO 0 % (0-6); Hematocrit 33.8 % (37.0-53.0); IMMATURE GRAN ABSOLUTE AUTO 0.02 K/mm3 (0.00-0.10); IMMATURE GRAN PERCENT AUTO 0 % (0-1); LYMPHOCYTES ABSOLUTE AUTO 0.96 K/mm3 (0.84-5.20); LYMPHOCYTES PERCENT AUTO 9 % (21-46); MONOCYTES ABSOLUTE AUTO 0.78 K/mm3 (0.16-1.47); MONOCYTES PERCENT AUTO 7 % (4-13); Mean Corpuscular HGB 31.9 pg (26.0-34.0); Mean Corpuscular HGB Conc 35.5 g/dL (31.5-36.5); Mean Corpuscular Volume 90 fL (80-100); Mean Platelet Volume 8.9 fL (9.1-12.4); NEUTROPHILS ABSOLUTE AUTO 9.25 K/mm3 (1.96-9.15); NEUTROPHILS PERCENT AUTO 84 % (41-73); Platelet Count 296 K/mm3 (150-400); RDW Coefficient Variation 13.8 % (11.7-14.2); RDW Standard Deviation 45.1 fL (35.1-46.3); Red Blood Cell Count 3.76 M/mm3 (4.30-5.90); White Blood Cell Count 11.03 K/mm3 (4.00-11.30)
[2024-05-30 22:22] LABS: Base Excess Venous -4.7 mmol/L; Bicarbonate Venous 21.8 mmol/L (24.0-30.0); PCO2 Venous 24.8 mmHg (38-42); pH Blood Venous 7.49 (7.34-7.37)
[2024-05-30 22:34] LABS: Albumin, Blood 3.4 g/dL (3.4-5.0); Albumin/Globulin Ratio 0.9 (0.8-1.8); Beta-hydroxybutyrate 43.1 mg/dL (0.2-2.8); Bilirubin, Total 1.9 mg/dL (0.1-1.0); Bun/Creatinine Ratio 18.7 (12.0-20.0); Calcium, Blood 8.8 mg/dL (8.5-10.1); Creatinine, Blood 0.91 mg/dL (0.60-1.20); Globulin, Blood 3.8 g/dL (2.2-4.0); Magnesium, Blood 1.5 mg/dL (1.6-2.4); Potassium, Blood 3.6 mmol/L (3.5-5.5); Total Protein, Blood 7.2 g/dL (6.4-8.2)
[2024-05-31] VITALS (10 sets, daily range): BP systolic 118–210; BP diastolic 89–138
[2024-05-31] MEDS ORDERED: Metoclopramide HCl 5MG / ML 2ML Vial IV ONE (00:05)
[2024-05-31] MEDS ORDERED: Mag Sulfate 1 GM/D5% 100ML 100 ML IV STA (01:28)
[2024-05-31] MEDS ORDERED: FLU VACC TS2024-25(6MOS UP)/PF 45 MCG/0.5 ML SYRINGE IM ONE (01:35)
[2024-05-31] MEDS ORDERED: Ondansetron HCl 2 MG / ML 2ML Vial IV PRN (01:35)
[2024-05-31] MEDS ORDERED: Dextrose 50% 50 ML Syringe IV PRN (01:35)
[2024-05-31] MEDS ORDERED: Potassium Chl 20MEQ/Water100ML 100 ML IV STA ×3 (01:40→16:02)
[2024-05-31] MEDS ORDERED: Insulin Human Regular 100 UNIT in NS 100 ML IV SCH ×2 (01:45→16:05)
[2024-05-31] MEDS ORDERED: D5W-1/2NS 1,000 ML IV SCH (02:00)
[2024-05-31 02:03] LABS: Bun/Creatinine Ratio 15.5 (12.0-20.0); Calcium, Blood 8.2 mg/dL (8.5-10.1); Creatinine, Blood 0.91 mg/dL (0.60-1.20); Magnesium, Blood 1.3 mg/dL (1.6-2.4); Potassium, Blood 3.6 mmol/L (3.5-5.5)
[2024-05-31] MEDS ORDERED: Lactated Ringer's 1,000 ML IV SCH ×2 (02:35→15:05)
[2024-05-31 05:48] LABS: BASOPHILS ABSOLUTE AUTO 0.02 K/mm3 (0.00-0.23); BASOPHILS PERCENT AUTO 0 % (0-2); EOSINOPHILS ABSOLUTE AUTO 0.03 K/mm3 (0.00-0.68); EOSINOPHILS PERCENT AUTO 0 % (0-6); Hematocrit 32.9 % (37.0-53.0); Hemoglobin 11.6 g/dL (13.5-17.5); IMMATURE GRAN ABSOLUTE AUTO 0.06 K/mm3 (0.00-0.10); IMMATURE GRAN PERCENT AUTO 1 % (0-1); LYMPHOCYTES ABSOLUTE AUTO 1.07 K/mm3 (0.84-5.20); LYMPHOCYTES PERCENT AUTO 10 % (21-46); MONOCYTES ABSOLUTE AUTO 0.81 K/mm3 (0.16-1.47); MONOCYTES PERCENT AUTO 8 % (4-13); Mean Corpuscular HGB 31.8 pg (26.0-34.0); Mean Corpuscular HGB Conc 35.3 g/dL (31.5-36.5); Mean Corpuscular Volume 90 fL (80-100); Mean Platelet Volume 9.2 fL (9.1-12.4); NEUTROPHILS ABSOLUTE AUTO 8.83 K/mm3 (1.96-9.15); NEUTROPHILS PERCENT AUTO 82 % (41-73); Platelet Count 278 K/mm3 (150-400); RDW Coefficient Variation 13.8 % (11.7-14.2); RDW Standard Deviation 45.6 fL (35.1-46.3); Red Blood Cell Count 3.65 M/mm3 (4.30-5.90); White Blood Cell Count 10.82 K/mm3 (4.00-11.30)
[2024-05-31 06:16] LABS: Albumin, Blood 3.1 g/dL (3.4-5.0); Albumin/Globulin Ratio 0.9 (0.8-1.8); Bilirubin, Total 1.6 mg/dL (0.1-1.0); Bun/Creatinine Ratio 16.8 (12.0-20.0); Calcium, Blood 8.3 mg/dL (8.5-10.1); Creatinine, Blood 0.89 mg/dL (0.60-1.20); Globulin, Blood 3.5 g/dL (2.2-4.0); Potassium, Blood 3.5 mmol/L (3.5-5.5); Total Protein, Blood 6.6 g/dL (6.4-8.2)
[2024-05-31] MEDS ORDERED: Enoxaparin 40 MG/0.4 ML SYR SC SCH (09:00)
[2024-05-31] MEDS ORDERED: Insulin Glargine-Yfgn 100 Unit/mL 3 ML SYR SC ONE ×2 (09:00→21:00)
[2024-05-31] MEDS ORDERED: Losartan Potassium 25 MG Tab PO SCH (09:00)
[2024-05-31 10:33] LABS: Source, Urine Clean Catch
[2024-05-31 10:36] LABS: Appearance, Urine Clear (Clear); Bilirubin, Urine Neg (Neg); Blood, Urine 1+ (Neg); Color, Urine Yellow (P-Yellow); Glucose Qualitative, Urine 4+ (Neg); Ketones, Urine 3+ (Neg); Leukocyte Esterase, Urine Neg (Neg); Nitrite, Urine Neg (Neg); Protein, Urine 2+ (Neg); Urobilinogen, Urine NORM (Normal); pH, Urine 6.5 (5.0-8.0)
[2024-05-31 10:49] LABS: Red Blood Cells, Urine 0-2 /hpf (0-2); White Blood Cells, Urine 0-2 /hpf (0-5)
[2024-05-31 10:50] LABS: Squamous Epithelial Cells Not Seen /hpf (Few)
[2024-05-31 10:51] LABS: Bacteria Rare /hpf
[2024-05-31 10:52] LABS: U Amphetamine Screen Not Detected; U Barbituate Screen Not Detected; U Benzodiazapine Screen Not Detected; U Buprenorphine Screen Not Detected; U Cannabinoids Screen DETECTED; U Cocaine Screen Not Detected; U Methadone Screen Not Detected; U Methamphetamine Screen Not Detected; U Opiates Screen Not Detected; U Oxycodone Screen DETECTED; U Phencyclidine Screen Not Detected
[2024-05-31 10:58] LABS: Bun/Creatinine Ratio 17.5 (12.0-20.0); Calcium, Blood 8.2 mg/dL (8.5-10.1); Creatinine, Blood 0.8 mg/dL (0.60-1.20); Potassium, Blood 3.4 mmol/L (3.5-5.5)
[2024-05-31] MEDS ORDERED: Insulin Human Lispro 100 Units/ML 3ML Syringe SC SCH (12:00)
[2024-05-31] MEDS ORDERED: OxyCODONE HCL 5 MG TAB PO PRN (14:25)
[2024-05-31] MEDS ORDERED: HYDROmorphone HCl/Pf 1MG SYR IV PRN (14:30)
[2024-05-31 15:16] LABS: Bun/Creatinine Ratio 13.7 (12.0-20.0); Calcium, Blood 8.9 mg/dL (8.5-10.1); Creatinine, Blood 0.95 mg/dL (0.60-1.20); Potassium, Blood 3.1 mmol/L (3.5-5.5)
--- NOTE | 2024-05-31 15:43 | NUR ---
PROVIDER CONTACT PROVIDER NOTIFIED OF REPEAT LAB RESULTS INCLUDING ANION GAP AT 14 AND POTASSIUM 3.1. AWAITING ORDERS.
[2024-05-31] MEDS ORDERED: D5W-1/2NS KCl 40mEq 1,000 ML IV SCH (16:00)
--- NOTE | 2024-05-31 18:16 | NUR ---
DAY SHIFT SUMMARY PT ARRIVED FROM THE ER ALERT AND HAVING COMPLAINTS OF SEVERE LLQ PAIN. PT DENYING NAUSEA THIS SHIFT. PT BLADDER SCANNED AFTER ARRIVAL TO THE ICU SHOWING >800ML URINE RETENTION. AFTER SVERAL ATTEMPS TO VOID UNSUCCESSFULLY PT HAD STRAIGHT CATH INSERTED DRAINING 1L YELLOW URINE. PROVIDER NOTIFIED OF RETENTION AND ORDERS TO BLADDER SCAN AND PLACE AGUILAR IF PT HAS FURTHER RETENTION GIVEN, REPEAT BLADDER SCAN SHOWING <300ML. PT STILL HAVING SEVERE PAIN IN ABDOMEN REQUIRING IV PAIN MEDICATION. PT'S BP ELEVATED BUT IT HAS BEEN DIFFICULT TO GET AN ACCURATE BP READING ON HIM ASM HE HAS A CONSTANT GRUNTING BREATHING PATTERN WHERE HE HOLDS HIS BREATH VERY BRIEFLY A PAIN RESPONSE TO HIS ABDOMEN PAIN. SPO2 >92% ON RM AIR. MONITOR SHOWING ST 100'S-120'S. PT'S LABS SHOWING ION GAP OPEN SO PROVIDER ORDERING INSULIN GTT TO BE RESTARTED AFTER POTASSIUM REPLACEMENT. AT SOME POINT IN THE IV POTASSIUM REPLACEMENT THE PT'S IV CAME OUT OF HIS ARM AND A UNKNOWN AMOUNT OF THE IV POTASSIUM WAS PUMPED INTO HIS BED UNNOTICED BY THE STAFF OR THE PT. PROVIDER NOTIFIED OF THIS AND STAT POTASSIUM LEVEL ORDERED. INSULIN GTT STILL ON STAND-BY. PT TOLERATING PO INTAKE STILL DENYING ANY NAUSEA. PT IS A VERY POOR HISTORIAN W SLOW RESPONSES TO QUESTIONS OFTEN BECOMING COMPLETELY SILENT WHEN ASKED QUESTIONS THAT HE DOES NOT KNOW THE ANSWER TO. PT CURRENTLY SITTING IN BED WATCHING IN NO DISTRESS W CALL LIGHT AT HIS SIDE. WILL REPORT TO ONCOMING RN.
[2024-05-31] MEDS ORDERED: Potassium Chl 20MEQ/Water100ML 100 ML IV ONE (18:35)
[2024-05-31] MEDS ORDERED: Lactated Ringer's 1,000 ML IV ONE (19:19)
[2024-05-31 20:02] LABS: Bun/Creatinine Ratio 15.9 (12.0-20.0); Calcium, Blood 8.3 mg/dL (8.5-10.1); Creatinine, Blood 1.07 mg/dL (0.60-1.20); Magnesium, Blood 1.5 mg/dL (1.6-2.4); Potassium, Blood 3.6 mmol/L (3.5-5.5)
--- NOTE | 2024-05-31 20:38 | NUR ---
UPDATE SPOKE WITH DR. BELL ABOUT BLOOD SUGAR, POTASSIUM LEVELS AND MAG LEVELS. DOCTOR PUTIN NEW ORDERS IN EMAR. ALSO ABOUT PATIENT'S BLOOD PRESSURE ELEVATION NO NEW ORDERS FOR B/P.
[2024-05-31] MEDS ORDERED: Gabapentin 300 MG Cap PO SCH (21:00)
[2024-05-31] MEDS ORDERED: Magnesium Oxide 400 MG Tab PO SCH (21:00)
[2024-06-01] VITALS (24 sets, daily range): BP systolic 120–187; BP diastolic 76–145
[2024-06-01 00:15] LABS: Bun/Creatinine Ratio 17.9 (12.0-20.0); Calcium, Blood 7.8 mg/dL (8.5-10.1); Creatinine, Blood 1.06 mg/dL (0.60-1.20); Potassium, Blood 3.6 mmol/L (3.5-5.5)
[2024-06-01 04:12] LABS: BASOPHILS ABSOLUTE AUTO 0.03 K/mm3 (0.00-0.23); BASOPHILS PERCENT AUTO 0 % (0-2); EOSINOPHILS ABSOLUTE AUTO 0.03 K/mm3 (0.00-0.68); EOSINOPHILS PERCENT AUTO 0 % (0-6); Hematocrit 29.7 % (37.0-53.0); Hemoglobin 10.3 g/dL (13.5-17.5); IMMATURE GRAN ABSOLUTE AUTO 0.03 K/mm3 (0.00-0.10); IMMATURE GRAN PERCENT AUTO 0 % (0-1); LYMPHOCYTES ABSOLUTE AUTO 1.36 K/mm3 (0.84-5.20); LYMPHOCYTES PERCENT AUTO 15 % (21-46); MONOCYTES ABSOLUTE AUTO 1.05 K/mm3 (0.16-1.47); MONOCYTES PERCENT AUTO 11 % (4-13); Mean Corpuscular HGB 31.2 pg (26.0-34.0); Mean Corpuscular HGB Conc 34.7 g/dL (31.5-36.5); Mean Corpuscular Volume 90 fL (80-100); Mean Platelet Volume 8.5 fL (9.1-12.4); NEUTROPHILS ABSOLUTE AUTO 6.77 K/mm3 (1.96-9.15); NEUTROPHILS PERCENT AUTO 73 % (41-73); Platelet Count 238 K/mm3 (150-400); RDW Coefficient Variation 13.9 % (11.7-14.2); RDW Standard Deviation 46.2 fL (35.1-46.3); White Blood Cell Count 9.27 K/mm3 (4.00-11.30)
[2024-06-01 04:30] LABS: Albumin, Blood 2.7 g/dL (3.4-5.0); Albumin/Globulin Ratio 0.9 (0.8-1.8); Bilirubin, Direct 0.3 mg/dL (0.0-0.3); Bilirubin, Indirect 1.2 mg/dL (0.1-0.7); Bilirubin, Total 1.5 mg/dL (0.1-1.0); Globulin, Blood 2.9 g/dL (2.2-4.0); Magnesium, Blood 1.7 mg/dL (1.6-2.4); Total Protein, Blood 5.6 g/dL (6.4-8.2)
[2024-06-01 04:56] LABS: Bun/Creatinine Ratio 17.8 (12.0-20.0); Calcium, Blood 7.7 mg/dL (8.5-10.1); Creatinine, Blood 1.01 mg/dL (0.60-1.20); Potassium, Blood 3.8 mmol/L (3.5-5.5)
--- NOTE | 2024-06-01 05:35 | NUR ---
SHIFT SUMMARY PATIENT SLEPT MOST OF NIGHT. A&O X4, LUNGS CLEAR BILATERALLY, SBP 140-150'S MD AWARE NO NEW ORDERS GIVEN ( AND ). HR IN THE 80'S. PAIN CONTROLLED BY PRN MEDS IN EMAR Q2 HOURS. POWERGLIDE X2 LEFT UPPER ARM AND RIGHT UPPER ARM. INSULIN DRIP STARTED @ 5 RUNNING AT 2UNITS AND D5 WITH POTASSIUM RUNNING @100MLS. PATIENT MORE ALERT AND ABLE TO HOLD CONVERSATION WITHOUT BREATHING HARD AND HOLDING BREATH. HAS NERVE SIMULATOR IN LLQ FOR GASTROPARESIS, PATIENT STATES "IT DOES NOT WORK BUT THEY LEAVE IT IN ME TO CAUSE PAIN". HAS NASAL CANNULA ON WITH 2L OF O2. PATIENT STATES " I WEAR THIS AT HOME AT NIGHT TO HELP ME". PATIENT VOIDED AT 2300 500MLS OF DARK YELLOW URINE IN URINAL STANDING AT BEDSIDE. NURSE ASKED PATIENT IF HE FELT LIKE HIS BLADDER WAS FULL? PATIENT SAID " NO I HAVE NOT BEEN DRINKING ENOUGH". PATIENT HAS CALL LIGHT WITHIN REACH.
[2024-06-01] MEDS ORDERED: Pantoprazole Sodium 40 MG Tab PO SCH (06:00)
[2024-06-01] MEDS ORDERED: Lactated Ringer's 1,000 ML IV SCH (10:10)
[2024-06-01] MEDS ORDERED: Insulin Glargine-Yfgn 100 Unit/mL 3 ML SYR SC SCH (11:00)
[2024-06-01] MEDS ORDERED: Insulin Human Lispro 100 Units/ML 3ML Syringe SC SCH ×2 (11:30→12:30)
[2024-06-01 12:00] LABS: Albumin, Blood 2.6 g/dL (3.4-5.0); Albumin/Globulin Ratio 0.9 (0.8-1.8); Bilirubin, Total 1.3 mg/dL (0.1-1.0); Bun/Creatinine Ratio 19.1 (12.0-20.0); Calcium, Blood 7.8 mg/dL (8.5-10.1); Creatinine, Blood 0.99 mg/dL (0.60-1.20); Globulin, Blood 2.8 g/dL (2.2-4.0); Potassium, Blood 3.5 mmol/L (3.5-5.5); Total Protein, Blood 5.4 g/dL (6.4-8.2)
[2024-06-01] MEDS ORDERED: Insulin Pump Cartridge MISC XX SCH (13:05)
--- NOTE | 2024-06-01 14:50 | NUR ---
Spiritual care visit conducted. The patient is known to this Chemist [employer]. He immediately explains about his medical challenges and the plan of clinical care moving forward. Malu, his spouse, is bedside and is very engaged in the conversation. We talk about some of their adventures before the patient had medical issues. 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 His most recent efforts that again have been interupted by his health has been joining the [employer] club and how much enjoyment has from being able to shoot again and fish. He also shares about his strong Protestant ayana and the strength that he receives from that ayana in God. I provided therapeutic listening and prayer. The patient and Malu responded quite well and showed signs of reduced weight and stress and greater maggi. I will continue to remain available to patient and family.
[2024-06-01 15:21] LABS: Bun/Creatinine Ratio 19.6 (12.0-20.0); Creatinine, Blood 1.07 mg/dL (0.60-1.20); Potassium, Blood 3.9 mmol/L (3.5-5.5)
--- NOTE | 2024-06-01 18:13 | NUR ---
DAY SHIFT SUMMARY PT HAS BEEN ALERT AND ORIENTED THIS SHIFT COMMUNICATING APPROPRIATELY W STAFF. PT TRANSITIONED OFF OF INSULIN GTT THIS AM BACK ONTO HIS HOME INSULIN PUMP. CBG'S STABLE W THE PT TOLERATING PO INTAKE. PT STILL REPORTING LLQ ABDOMEN PAIN BUT HAS REQUIRED LESS PAIN MEDICATION THAN PREVIOUS SHIFT. SPO2 >94% ON RM AIR. BP WNL AND STABLE. MONITOR STILL SHOWING SR/ST 90'S-110'S DEPENDING ON ACTIVITY. LR INFUSING AT 100 ML/HR. WILL REPORT TO ONCOMING RN.
[2024-06-02] VITALS (9 sets, daily range): BP systolic 108–184; BP diastolic 78–145
[2024-06-02 05:30] LABS: BASOPHILS ABSOLUTE AUTO 0.05 K/mm3 (0.00-0.23); BASOPHILS PERCENT AUTO 1 % (0-2); EOSINOPHILS ABSOLUTE AUTO 0.35 K/mm3 (0.00-0.68); EOSINOPHILS PERCENT AUTO 6 % (0-6); IMMATURE GRAN ABSOLUTE AUTO 0.03 K/mm3 (0.00-0.10); IMMATURE GRAN PERCENT AUTO 1 % (0-1); LYMPHOCYTES PERCENT AUTO 32 % (21-46); MONOCYTES ABSOLUTE AUTO 0.62 K/mm3 (0.16-1.47); MONOCYTES PERCENT AUTO 11 % (4-13); Mean Corpuscular HGB 31.6 pg (26.0-34.0); Mean Corpuscular HGB Conc 34.5 g/dL (31.5-36.5); Mean Corpuscular Volume 92 fL (80-100); Mean Platelet Volume 8.4 fL (9.1-12.4); NEUTROPHILS ABSOLUTE AUTO 2.81 K/mm3 (1.96-9.15); NEUTROPHILS PERCENT AUTO 50 % (41-73); Platelet Count 202 K/mm3 (150-400); RDW Coefficient Variation 14.1 % (11.7-14.2); RDW Standard Deviation 47.5 fL (35.1-46.3); Red Blood Cell Count 3.16 M/mm3 (4.30-5.90); White Blood Cell Count 5.66 K/mm3 (4.00-11.30)
--- NOTE | 2024-06-02 05:50 | NUR ---
SHIFT SUMMARY PATIENT SLEPT MOST NIGHT. HAD PAIN IN LLQ, PRN MEDS WORKED FOR PAIN Q2-4 HOURS FOR HIM. PATIENT DID NOT NEED TO ADJUST INSULIN PUMP DUE TO BLOOD SUGARS IN THE RANGE OF 79-110. A&OX4, LUNGS CLEAR BILATERALLY, SBP 130-140'S, HR IN THE 80-90'S. POWERGLIDE IN UPPER RIGHT AND LEFT ARMS. SSTANDS AT BEDSIDE TO USE URINAL, YELLOW COLORED URINE. CALL LIGHT WITHIN REACH.
[2024-06-02 05:55] LABS: Magnesium, Blood 1.8 mg/dL (1.6-2.4)
[2024-06-02 05:57] LABS: Albumin, Blood 2.4 g/dL (3.4-5.0); Albumin/Globulin Ratio 0.8 (0.8-1.8); Bilirubin, Total 0.8 mg/dL (0.1-1.0); Calcium, Blood 7.8 mg/dL (8.5-10.1); Creatinine, Blood 1.06 mg/dL (0.60-1.20); Globulin, Blood 2.9 g/dL (2.2-4.0); Phosphorus, Blood 2.8 mg/dL (2.5-4.9); Potassium, Blood 3.3 mmol/L (3.5-5.5); Total Protein, Blood 5.3 g/dL (6.4-8.2)
[2024-06-02] MEDS ORDERED: Potassium Chloride 20 MEQ TabCR PO ONE (06:40)
[2024-06-02] MEDS ORDERED: AmLODIPine Besylate 5 MG Tab PO ONE (10:30)
--- NOTE | 2024-06-02 10:31 | NUR ---
PT SEEN BY DR. SAMANO AT BEDSIDE. PLAN TO START AMLODIPINE FOR SBP > 160 AND DISCHARGE HOME. SEE ORDERS.
[2024-06-02] MEDS ORDERED: AMLO5 PO (11:15)
--- NOTE | 2024-06-02 12:30 | NUR ---
The patient is sitting on the EOB and alert. He states that he will D/C home soon. I provided a prayer and blessing. Patient's spouse, Malu arrived as I was finishing the prayer. They expressed their gratitude for his quick recovery and for the exceptional RN care that the patient received. Patient expresses his interesting in going fishing as soon as he leaves which is not met with approval from Malu, until after he recovers a bit more.
== END 2024-06-02 12:10 | disposition home or self-care (01) | DRG 637 ==
LOC: ER 20:26 → ERHOLD 20:27 → ICUE 05-31 13:54
PROVIDERS: Family Medicine; Hospitalist; Student in an Organized Health Care Education/Training Program; ADMIT Student in an Organized Health Care Education/Training Program
DX: E10.10 Type 1 diabetes mellitus with ketoacidosis without coma (principal); G92.8 Other toxic encephalopathy; E87.1 Hypo-osmolality and hyponatremia; Z28.21 Immunization not carried out because of patient refusal; Z96.41 Presence of insulin pump (external) (internal); I10 Essential (primary) hypertension; E83.42 Hypomagnesemia; E10.43 Type 1 diabetes mellitus with diabetic autonomic (poly)neuropathy; K31.84 Gastroparesis; E10.42 Type 1 diabetes mellitus with diabetic polyneuropathy; N40.1 Benign prostatic hyperplasia with lower urinary tract symptoms; R33.8 Other retention of urine; F12.90 Cannabis use, unspecified, uncomplicated; E87.8 Other disorders of electrolyte and fluid balance, not elsewhere classified; Z79.4 Long term (current) use of insulin; Z79.899 Other long term (current) drug therapy
CPT/HCPCS: 36415; 51701; 80048; 80053; 81001; 82010; 82248; 82803; 82947; 83690; 83735; 84100; 84132; 84484; 85025; 93005; 93010; 94762; 96361; 96365; 96366; 96367; 96372-59; 96375; 96376; 99285-25; A9270; C1751; C1876; G0378; J1171; J1650; J1790; J1815; J2765; J3475; J3480; J7042; J7120

== ENCOUNTER 2024-08-17 19:22 | Inpatient (IN) | payer MEDICARE, OTHER ==
[~2024-08-17] VITALS: Ht 188 cm; Wt 66.7 kg
[~2024-08-17 19:22] MED LIST changes: +AMLO5 PO
[2024-08-17] MEDS ORDERED: NS 1,000 ML IV SCH (19:40)
[2024-08-17] MEDS ORDERED: Metoclopramide HCl 5MG / ML 2ML Vial IV ONE (19:45)
[2024-08-17 19:53] LABS: Base Excess Venous -4.2 mmol/L; Bicarbonate Venous 22.4 mmol/L (24.0-30.0); PCO2 Venous 22.8 mmHg (38-42); pH Blood Venous 7.52 (7.34-7.37)
[2024-08-17 20:10] LABS: Magnesium, Blood 1.6 mg/dL (1.6-2.4); Phosphorus, Blood 1.6 mg/dL (2.5-4.9)
[2024-08-17 20:21] LABS: Albumin, Blood 4.3 g/dL (3.4-5.0); Albumin/Globulin Ratio 0.9 (0.8-1.8); Beta-hydroxybutyrate 6.8 mg/dL (0.2-2.8); Bilirubin, Total 1.5 mg/dL (0.1-1.0); Bun/Creatinine Ratio 24.5 (12.0-20.0); Calcium, Blood 9.9 mg/dL (8.5-10.1); Creatinine, Blood 1.1 mg/dL (0.60-1.20); Globulin, Blood 4.8 g/dL (2.2-4.0); Potassium, Blood 4.2 mmol/L (3.5-5.5); Total Protein, Blood 9.1 g/dL (6.4-8.2)
[2024-08-17 20:33] LABS: BASOPHILS ABSOLUTE AUTO 0.04 K/mm3 (0.00-0.23); BASOPHILS PERCENT AUTO 0 % (0-2); EOSINOPHILS ABSOLUTE AUTO 0.01 K/mm3 (0.00-0.68); EOSINOPHILS PERCENT AUTO 0 % (0-6); Hematocrit 33.6 % (37.0-53.0); Hemoglobin 11.7 g/dL (13.5-17.5); IMMATURE GRAN PERCENT AUTO 1 % (0-1); LYMPHOCYTES ABSOLUTE AUTO 0.85 K/mm3 (0.84-5.20); LYMPHOCYTES PERCENT AUTO 5 % (21-46); MONOCYTES ABSOLUTE AUTO 1.21 K/mm3 (0.16-1.47); MONOCYTES PERCENT AUTO 7 % (4-13); Mean Corpuscular HGB 32.3 pg (26.0-34.0); Mean Corpuscular HGB Conc 34.8 g/dL (31.5-36.5); Mean Corpuscular Volume 93 fL (80-100); Mean Platelet Volume 9.2 fL (9.1-12.4); NEUTROPHILS ABSOLUTE AUTO 14.63 K/mm3 (1.96-9.15); NEUTROPHILS PERCENT AUTO 87 % (41-73); Platelet Count 203 K/mm3 (150-400); RDW Coefficient Variation 12.4 % (11.7-14.2); RDW Standard Deviation 42.7 fL (35.1-46.3); Red Blood Cell Count 3.62 M/mm3 (4.30-5.90); White Blood Cell Count 16.84 K/mm3 (4.00-11.30)
[2024-08-17 20:52] LABS: Bicarbonate Venous 22.8 mmol/L (24.0-30.0); PCO2 Venous 27.1 mmHg (38-42); pH Blood Venous 7.49 (7.34-7.37)
[2024-08-17] MEDS ORDERED: Morphine Sulfate 4 MG/1 ML Injection IV ONE (21:35)
[2024-08-17] MEDS ORDERED: METO10 PO (23:17)
[2024-08-18] VITALS (38 sets, daily range): BP systolic 128–217; BP diastolic 92–147
[2024-08-18] MEDS ORDERED: Metoclopramide HCl 5MG / ML 2ML Vial IV PRN (02:00)
[2024-08-18] MEDS ORDERED: FentaNYL Citrate 50 MCG/ML 2 ML Injection IV PRN (02:05)
[2024-08-18] MEDS ORDERED: FLU VACC TS2024-25(6MOS UP)/PF 45 MCG/0.5 ML SYRINGE IM ONE (02:05)
[2024-08-18] MEDS ORDERED: Ondansetron HCl 2 MG / ML 2ML Vial IV PRN (02:05)
[2024-08-18] MEDS ORDERED: Sodium Bicarb 8.4% Inj 150 MEQ in Dextrose 5% 1,000 ML IV SCH (02:20)
[2024-08-18] MEDS ORDERED: Insulin Human Regular 100 UNIT in NS 100 ML IV SCH (02:20)
[2024-08-18] MEDS ORDERED: Potassium Phosphate Dibasic 30 MM in Dextrose 5% 500 ML IV STA (03:14)
[2024-08-18] MEDS ORDERED: Sodium Bicarb 8.4% Inj 100 MEQ in Sodium Chloride 0.45% 1,000 ML IV SCH (03:15)
[2024-08-18] MEDS ORDERED: Magnesium Sulf 2 GM/Water 50ML 50 ML IV ONE (03:20)
[2024-08-18 04:28] LABS: BASOPHILS ABSOLUTE AUTO 0.03 K/mm3 (0.00-0.23); BASOPHILS PERCENT AUTO 0 % (0-2); EOSINOPHILS PERCENT AUTO 0 % (0-6); Hematocrit 32.3 % (37.0-53.0); IMMATURE GRAN ABSOLUTE AUTO 0.09 K/mm3 (0.00-0.10); IMMATURE GRAN PERCENT AUTO 1 % (0-1); LYMPHOCYTES PERCENT AUTO 9 % (21-46); MONOCYTES ABSOLUTE AUTO 1.47 K/mm3 (0.16-1.47); MONOCYTES PERCENT AUTO 8 % (4-13); Mean Corpuscular HGB 32.1 pg (26.0-34.0); Mean Corpuscular HGB Conc 37.2 g/dL (31.5-36.5); Mean Platelet Volume 9.1 fL (9.1-12.4); NEUTROPHILS ABSOLUTE AUTO 15.58 K/mm3 (1.96-9.15); NEUTROPHILS PERCENT AUTO 83 % (41-73); Platelet Count 265 K/mm3 (150-400); RDW Coefficient Variation 12.5 % (11.7-14.2); RDW Standard Deviation 39.5 fL (35.1-46.3); Red Blood Cell Count 3.74 M/mm3 (4.30-5.90); White Blood Cell Count 18.77 K/mm3 (4.00-11.30)
[2024-08-18 04:30] LABS: Mean Corpuscular Volume 86 fL (80-100)
[2024-08-18 04:53] LABS: Albumin, Blood 4.2 g/dL (3.4-5.0); Bilirubin, Total 1.7 mg/dL (0.1-1.0); Bun/Creatinine Ratio 22.4 (12.0-20.0); Calcium, Blood 9.5 mg/dL (8.5-10.1); Creatinine, Blood 1.16 mg/dL (0.60-1.20); Globulin, Blood 4.3 g/dL (2.2-4.0); Potassium, Blood 3.4 mmol/L (3.5-5.5); Total Protein, Blood 8.5 g/dL (6.4-8.2)
[2024-08-18] MEDS ORDERED: LORazepam 2 MG/ML 1ML Injection IV PRN ×2 (05:00→12:00)
[2024-08-18] MEDS ORDERED: Labetalol HCL 5 MG/ML 4ML Injection (Single Dose) IV ONE (05:00)
[2024-08-18] MEDS ORDERED: HydrALAZINE HCl 20 MG / ML 1ML Vial IV PRN (06:25)
--- NOTE | 2024-08-18 06:27 | NUR ---
ADMISSION RECIEVED PT FROM ED VIA STRETCHER AT 0335, REPORT RECIEVED FROM LEANNA RN, PT TRANSFERRED TO ICE BED , PT AWAKE AND ALERT ORIENTED X4, ABLE TO MAKE NEEDS KNOWN, FOLLOWS COMMANDS, TEMP 100.2F, ST 120-130s, SBP 170-180s, DBP 90-110s, PT TACHYPNEIC RESP 30-40S WITH PT ONLY ABLE TO ANSWER WITH ONE WORD ANSWERS BETWEEN BREATHS AND PT GRUNTING WITH EVERY BREATH, PAIN RATED AT 10 GENERALIZED AND C/O NAUSEA, NO EDEMA NOTED, SKIN INTACT, 22 GAUGE TO LEFT HAND WAS REMOVED BY PT DURING TRANSFER TO ICU, GAUZE DRESSING APPLIED AND SECURED WITH TAPE, CBG 149, UNABLE TO PLACE PERIPHERAL IV, ULTRASOUND GUIDED POWERGLIDE TO STAR AND DANITA PLACED BY BRIAN Arceo RN, PT TOLERATED WELL. PT PLACED ON O2 AT 2 LPM FOR COMFORT AND PT STATES HE WEARS O2 AT HOME, MEDICATED WITH FENTANYL 50MCG FOR PAIN, ZOFRAN FOR NAUSEA, PT STATES EFFECTIVE, HOWEVER CONTINUES WITH GRUNTING LABORED RESPIRATIONS, HR 120-130s AND HYPERTENSIVE, PT BECOMING ANXIOUS, STANDING UP BESIDE BED, PULLING AND MOVING IV LINES, [address] WALLER OF ABOVE WITH NEW ORDERS RECEIVED. PT MEDICATED WITH LABETELOL 10MG IVP AND ATIVAN 0.5MG, ATIVAN EFFECTIVE FOR ANXIETY, RESP EVEN AND UNLABORED, EYES CLOSED NO GRUNTING RESP OR DISTRESS NOTED, RESP 16-20 RPM, HR 100-108 BPM AND REMAINS HYPERTENSIVE, PT DENIES CP, URINAL AT BEDSIDE, BED ALARM ON, CALL LIGHT IN REACH
[2024-08-18] MEDS ORDERED: Potassium Chloride 40 MEQ in NS 250 ML IV ONE (08:15)
[2024-08-18] MEDS ORDERED: Enoxaparin 40 MG/0.4 ML SYR SC SCH (09:00)
--- NOTE | 2024-08-18 10:01 | NUR ---
TRIED TO CALL MD ABOUT BLOOD SUGAR BEING 382, NO ANSWER
[2024-08-18 11:01] LABS: Creatinine, Blood 1.2 mg/dL (0.60-1.20); Potassium, Blood 3.4 mmol/L (3.5-5.5)
[2024-08-18] MEDS ORDERED: Metoprolol Tartrate 1 MG/ML 5 ML VIAL IV ONE (11:40)
[2024-08-18] MEDS ORDERED: Metoprolol Tartrate 1 MG/ML 5 ML VIAL IV PRN (11:40)
[2024-08-18 13:14] LABS: Albumin, Blood 3.7 g/dL (3.4-5.0); Albumin/Globulin Ratio 0.9 (0.8-1.8); Bilirubin, Total 1.8 mg/dL (0.1-1.0); Bun/Creatinine Ratio 25.4 (12.0-20.0); Creatinine, Blood 1.26 mg/dL (0.60-1.20); Potassium, Blood 3.6 mmol/L (3.5-5.5); Total Protein, Blood 7.7 g/dL (6.4-8.2)
[2024-08-18] MEDS ORDERED: Insulin Regular 100 UNIT/ML 10ML Vial SC SCH ×3 (13:15→21:00)
[2024-08-18] MEDS ORDERED: Labetalol HCL 5 MG/ML 20MLVIAL IV PRN (16:45)
[2024-08-18 17:05] LABS: Bun/Creatinine Ratio 30.8 (12.0-20.0); Calcium, Blood 9.2 mg/dL (8.5-10.1); Creatinine, Blood 1.3 mg/dL (0.60-1.20); Potassium, Blood 3.5 mmol/L (3.5-5.5)
--- NOTE | 2024-08-18 18:50 | NUR ---
PATIENT WAS GIVEN SEVERAL PRNS THROUGHOUT THE DAY, BLOOD SUGARD WERE HIGH DR FREIRE WAS NOTIFIED, PATIENT DIDNT HAVE ANY N/V TODAY ON MY SHIFT
--- NOTE | 2024-08-18 20:24 | NUR ---
ASSUMED CARE AT 1900 PATIENT IS ALERT AND ORIENTED X3, UNABLE TO STATE DATE AND SEEMS TO HAVE SHORT TERM MEMORY. ANXIOUS AND IMPULSIVE AT TIMES, MEDICATED PER EMAR. MEDICATED FOR NAUSEA PER EMAR WELL. SP02 100% ON RA, DENIES SOB. HR SR 110, BP HYPERTENSIVE BUT <180 SYSTOLIC WHEN PATIENT IS CALM. CBG 485, WAS TOLD PER DAYSHIFT THAT DOCTOR IS AWARE OF HIGH BLOOD GLUCOSE AND MADE ADJUSTMENTS TO INSULIN DOSAGES, THIS RN GAVE INSULIN PER EMAR AND WILL RECHECK CBG IN 4 HOURS. PATIENT INDEPENDENT UP TO TOILET, PUT NON-SLIP SOCKS ON PATIENT. STABLE WHEN UP. CALL LIGHT IN REACH.
[2024-08-18] MEDS ORDERED: MetroNIDAZOLE 500 MG Tab PO SCH (21:00)
[2024-08-18] MEDS ORDERED: Ciprofloxacin 500 MG Tab PO SCH (21:00)
[2024-08-18] MEDS ORDERED: Mirtazapine 15 MG Tab PO SCH (21:00)
[2024-08-18] MEDS ORDERED: Metoprolol Tartrate 25 MG Tab PO SCH (21:00)
[2024-08-18] MEDS ORDERED: Insulin Glargine-Yfgn 100 Unit/mL 3 ML SYR SC SCH (21:00)
[2024-08-18 22:38] LABS: Bun/Creatinine Ratio 30.3 (12.0-20.0); Creatinine, Blood 1.19 mg/dL (0.60-1.20); Potassium, Blood 3.6 mmol/L (3.5-5.5)
[2024-08-19] VITALS (28 sets, daily range): BP systolic 132–199; BP diastolic 87–119
[2024-08-19 02:10] LABS: BASOPHILS ABSOLUTE AUTO 0.03 K/mm3 (0.00-0.23); BASOPHILS PERCENT AUTO 0 % (0-2); EOSINOPHILS ABSOLUTE AUTO 0.02 K/mm3 (0.00-0.68); EOSINOPHILS PERCENT AUTO 0 % (0-6); Hematocrit 30.2 % (37.0-53.0); Hemoglobin 11.2 g/dL (13.5-17.5); IMMATURE GRAN ABSOLUTE AUTO 0.09 K/mm3 (0.00-0.10); IMMATURE GRAN PERCENT AUTO 1 % (0-1); LYMPHOCYTES ABSOLUTE AUTO 1.61 K/mm3 (0.84-5.20); LYMPHOCYTES PERCENT AUTO 10 % (21-46); MONOCYTES PERCENT AUTO 8 % (4-13); Mean Corpuscular HGB 32.1 pg (26.0-34.0); Mean Corpuscular HGB Conc 37.1 g/dL (31.5-36.5); Mean Corpuscular Volume 87 fL (80-100); Mean Platelet Volume 9.2 fL (9.1-12.4); NEUTROPHILS ABSOLUTE AUTO 13.51 K/mm3 (1.96-9.15); NEUTROPHILS PERCENT AUTO 81 % (41-73); Platelet Count 263 K/mm3 (150-400); RDW Coefficient Variation 12.5 % (11.7-14.2); RDW Standard Deviation 39.7 fL (35.1-46.3); Red Blood Cell Count 3.49 M/mm3 (4.30-5.90); White Blood Cell Count 16.66 K/mm3 (4.00-11.30)
[2024-08-19 02:13] LABS: Albumin, Blood 3.8 g/dL (3.4-5.0); Albumin/Globulin Ratio 0.9 (0.8-1.8); Bilirubin, Total 1.5 mg/dL (0.1-1.0); Calcium, Blood 9.4 mg/dL (8.5-10.1); Creatinine, Blood 1.24 mg/dL (0.60-1.20); Globulin, Blood 4.1 g/dL (2.2-4.0); Magnesium, Blood 2.3 mg/dL (1.6-2.4); Potassium, Blood 3.2 mmol/L (3.5-5.5); Total Protein, Blood 7.9 g/dL (6.4-8.2)
[2024-08-19] MEDS ORDERED: Potassium Chloride 20 MEQ TabCR PO ONE (04:50)
[2024-08-19] MEDS ORDERED: Pantoprazole Sodium 40 MG Injection IV SCH (06:00)
--- NOTE | 2024-08-19 06:50 | NUR ---
SHIFT SUMMARY PATIENT ALERT AND ORIENTED X2-3, FORGETFUL AND NEEDS REDIRECTION AT TIMES. ANXIOUS AND REPORTING ABDOMINAL PAIN, MEDICATED PER EMAR. SP02 98% ON RA, DENIES SOB. HR ST 120-130. BP HYPERTENSIVE, MEDICATED THROUGH THE NIGHT WITH PRN MEDS. UP TO TOILET TO URINATE INDEPENDENTLY. NO BM THIS SHIRT. CALL LIGHT IN REACH
[2024-08-19] MEDS ORDERED: NS 1,000 ML IV SCH (08:20)
[2024-08-19] MEDS ORDERED: Potassium Chloride 40 MEQ in NS 250 ML IV ONE (08:25)
[2024-08-19] MEDS ORDERED: Arginine/Glutamine/Calcium Hmb 1 Packet PO SCH (09:00)
[2024-08-19] MEDS ORDERED: AmLODIPine Besylate 5 MG Tab PO SCH (09:00)
[2024-08-19] MEDS ORDERED: Losartan Potassium 25 MG Tab PO SCH (09:00)
--- NOTE | 2024-08-19 11:17 | NUR ---
Patient is sitting up in bed and alert. Patient is known to this Car Usher. He appears to be in pain and struggles to engage in conversation which is not his base. I make my visit brief because of his struggle to connect. I provided a prayer and and allowed him to get back to working toward peace in spirit, mind and body. I will continue to remain avaialable.
[2024-08-19] MEDS ORDERED: OxyCODONE HCL 5 MG TAB PO PRN (12:20)
[2024-08-19] MEDS ORDERED: Pantoprazole Sodium 40 MG Tab PO SCH (16:30)
--- NOTE | 2024-08-19 18:11 | NUR ---
Pt improved this shift. A&O, ambulating independently. Pt tolerating PO intake today, PRN meds used for mild nausea once. at bedside this afternoon, updated on pt condition. No acute events this shift, see chart for further details.
[2024-08-19 18:41] LABS: Albumin, Blood 3.3 g/dL (3.4-5.0); Albumin/Globulin Ratio 0.9 (0.8-1.8); Bilirubin, Total 1.4 mg/dL (0.1-1.0); Bun/Creatinine Ratio 26.2 (12.0-20.0); Calcium, Blood 8.6 mg/dL (8.5-10.1); Creatinine, Blood 1.26 mg/dL (0.60-1.20); Globulin, Blood 3.8 g/dL (2.2-4.0); Potassium, Blood 3.9 mmol/L (3.5-5.5); Total Protein, Blood 7.1 g/dL (6.4-8.2)
[2024-08-19] MEDS ORDERED: Insulin Glargine-Yfgn 100 Unit/mL 3 ML SYR SC SCH (21:00)
[2024-08-19] MEDS ORDERED: Protein Supplement 30 ML UD PO SCH (21:00)
[2024-08-20] VITALS (7 sets, daily range): BP systolic 122–193; BP diastolic 74–117
[2024-08-20 03:43] LABS: BASOPHILS ABSOLUTE AUTO 0.04 K/mm3 (0.00-0.23); BASOPHILS PERCENT AUTO 0 % (0-2); EOSINOPHILS ABSOLUTE AUTO 0.06 K/mm3 (0.00-0.68); EOSINOPHILS PERCENT AUTO 1 % (0-6); Hematocrit 30.5 % (37.0-53.0); Hemoglobin 11.1 g/dL (13.5-17.5); IMMATURE GRAN ABSOLUTE AUTO 0.03 K/mm3 (0.00-0.10); IMMATURE GRAN PERCENT AUTO 0 % (0-1); LYMPHOCYTES ABSOLUTE AUTO 1.36 K/mm3 (0.84-5.20); LYMPHOCYTES PERCENT AUTO 13 % (21-46); MONOCYTES ABSOLUTE AUTO 1.04 K/mm3 (0.16-1.47); MONOCYTES PERCENT AUTO 10 % (4-13); Mean Corpuscular HGB 32.3 pg (26.0-34.0); Mean Corpuscular HGB Conc 36.4 g/dL (31.5-36.5); Mean Corpuscular Volume 89 fL (80-100); NEUTROPHILS ABSOLUTE AUTO 7.67 K/mm3 (1.96-9.15); NEUTROPHILS PERCENT AUTO 75 % (41-73); Platelet Count 229 K/mm3 (150-400); RDW Coefficient Variation 12.4 % (11.7-14.2); RDW Standard Deviation 40.8 fL (35.1-46.3); Red Blood Cell Count 3.44 M/mm3 (4.30-5.90)
[2024-08-20 04:04] LABS: Albumin, Blood 3.4 g/dL (3.4-5.0); Albumin/Globulin Ratio 0.9 (0.8-1.8); Bilirubin, Total 1.1 mg/dL (0.1-1.0); Bun/Creatinine Ratio 24.5 (12.0-20.0); Calcium, Blood 8.8 mg/dL (8.5-10.1); Creatinine, Blood 1.1 mg/dL (0.60-1.20); Globulin, Blood 3.7 g/dL (2.2-4.0); Magnesium, Blood 2.1 mg/dL (1.6-2.4); Potassium, Blood 3.8 mmol/L (3.5-5.5); Total Protein, Blood 7.1 g/dL (6.4-8.2)
--- NOTE | 2024-08-20 05:47 | NUR ---
SHIFT SUMMARY PT A/OX4, USES CALL LIGHT APPROPRIATLY. INDEPENDENT IN THE ROOM, ON TELE BOX. HR 90'S, NSR. MAPS > 65. SBP > 180, PRN HYDRALAZINE GIVEN ONCE THIS SHIFT WITH IMPROVEMENT. ON ROOM AIR, SATS > 94%, DENIES SOB. PT WILL INTERMITTENTLY HAVE ABNORMAL BREATHING PATTERN THAT APPEARS TO BE GASPING, HE STATES IT OCCURS WHEN HE IS EXPERIENCING PAIN. PRN OXY AND FENTANYL GIVEN T/O THIS SHIFT WITH SOME RELIEF. ON SOLID DIET, HOWEVER HE DECLINED FOOD THIS SHIFT. TOLERATING LIQUID PO INTAKE W/O N/V. USES URINAL AT BEDSIDE. BOTH PG DRESSINGS CHANGED THIS SHIFT. NO ACUTE EVENTS. CALL LIGHT IN REACH.
[2024-08-20] MEDS ORDERED: Metoprolol Tartrate 50 MG Tab PO SCH (09:00)
[2024-08-20] MEDS ORDERED: Bisacodyl 5 MG TabEC PO PRN (09:10)
[2024-08-20] MEDS ORDERED: Polyethylene Glycol 3350 17 gm PO PRN (09:10)
[2024-08-20] MEDS ORDERED: Magnesium Hydroxide Conc 10 ML UDC PO PRN (09:10)
[2024-08-20] MEDS ORDERED: Metoprolol Tartrate 25 MG Tab PO ONE (09:40)
--- NOTE | 2024-08-20 10:53 | NUR ---
PT INFORMED THIS RN AND MD THIS MORNING THAT HE HAS NOT HAD ANY BOWEL MOVEMENTS YESTERDAY OR TODAY. MD INSTRUCTED THIS RN TO D/C THE GI PANEL ORDER. ORDER D/C'D PER MD VERBAL ORDER.
--- NOTE | 2024-08-20 11:40 | NUR ---
THIS RN HAD CONVERSATION ABOUT PT'S INSULIN PUMP. PT REPORTED THAT HIS CURRENTLY HAS PUMP WITH HER AT HOME. PT REPORTED THAT HIS BLOOD SUGAR "IS ALWAYS HIGH IN THE 200'S WHENEVER HAVING A GASTROPARESIS FLARE UP." PT INFORMED THIS RN THAT HIS PUMP IS NOT ABLE TO KEEP HIS SUGAR LEVELS DOWN WHERE THEY NORMALLY ARE IF HE IS HAVING A FLARE UP.
--- NOTE | 2024-08-20 11:48 | NUR ---
ASSUMED CARE AT 0700. PT RESTING IN BED, A/OX4, ON RA SATTING ABOVE 90%, BP 150'S, HR 80'S. PT COMPLAINS OF 9/10 PAIN IN HIS ABDOMEN. TREATING PER EMAR. PT AMBULATING INDEPENDENTLY IN THE ROOM W/ SBA FOR LINES, TELE. YANCEY IN TO SEE PT, STATUS CHANGED TO MED W/O TELE. PT HAD BM THIS MORNING. OT/PT ORDERED. WILL CONTINUE PLAN OF CARE.
--- NOTE | 2024-08-20 14:51 | NUR ---
Patient back to baseline. Very warm, engaged, talkative and clear. He shares personal stories and his concerns. I provided therapeutic listening and prayer. Patient repsonded well and was moved by the prayerHe expressed gratitude for the visit and stated that it was very encouraging.
--- NOTE | 2024-08-20 17:51 | NUR ---
SHIFT SUMMARY A/0X4, VERBALIZES NEEDS, OBEYS COMMANDS. PT REPORTS 6-9/10 IN ABDOMEN INTERMITTENTLY T/O DAY. TREATED PER EMAR. PLEASANT AND COOPERATIVE. BP 15O'S SYSTOLIC, SINUS RHYTHM, HR 80'S-90'S. PT DENIES CHEST PAIN/PRESSURE. BM TODAY, ABDOMEN SLIGHTLY DISTENDED, BOWEL TONES NORMOACTIVE. PT TOLERATED MINIMAL AMOUNTS OF MEALS TODAY. INDEPENDENT IN ROOM. NO ACUTE EVENTS THIS SHIFT.
--- NOTE | 2024-08-20 20:00 | NUR ---
ASSUMED CARE OF PT AT 1900. REPORT RECEIVED AT BEDSIDE. PRESENTS IN BED. IS ABLE TO PARTICIPATE IN BEDSIDE REPORT. PT REQUEST THAT NO ATTEMPTS TO WEAN HIM TO ONLY PO PAIN MEDICATIONS TO BE MADE. STATES THAT "I DON'T MIND HAVING TO STAY IN THE HOSPITAL LONG IT TAKES..." TO CORRECT HIS GASTROPARESIS. HE STATES HE HAS BEEN ON OXYCODONE FOR OVER 13 YEARS. PT ALERT AND ORIENTED. PLEASANT AND COOPERATIVE WITH CARE AND ASSESSMENT. NO COMPLAINTS OF N/V. ON ROOM AIR WITH SATURATIONS MAINTAINING > 90 PERCENT. WILL REVIEW CHART AND PLAN OF CARE FOR THIS PT.
[2024-08-21] VITALS (12 sets, daily range): BP systolic 125–193; BP diastolic 88–119
--- NOTE | 2024-08-21 00:03 | NUR ---
PT REQUESTED AND WAS MEDICATED WITH 0.5 MG ATIVAN, AND WITH 50 MCG'S FENTANYL FOR A COMPLAINT OF 7/10 ABDOMINAL PAIN. PT CURRENTLY SLEEPING. NO COMPLAINTS.
[2024-08-21 04:28] LABS: BASOPHILS ABSOLUTE AUTO 0.05 K/mm3 (0.00-0.23); BASOPHILS PERCENT AUTO 1 % (0-2); EOSINOPHILS PERCENT AUTO 4 % (0-6); Hematocrit 33.2 % (37.0-53.0); Hemoglobin 11.7 g/dL (13.5-17.5); IMMATURE GRAN ABSOLUTE AUTO 0.03 K/mm3 (0.00-0.10); IMMATURE GRAN PERCENT AUTO 0 % (0-1); LYMPHOCYTES ABSOLUTE AUTO 1.96 K/mm3 (0.84-5.20); LYMPHOCYTES PERCENT AUTO 20 % (21-46); MONOCYTES ABSOLUTE AUTO 0.92 K/mm3 (0.16-1.47); MONOCYTES PERCENT AUTO 9 % (4-13); Mean Corpuscular HGB 32.1 pg (26.0-34.0); Mean Corpuscular HGB Conc 35.2 g/dL (31.5-36.5); Mean Corpuscular Volume 91 fL (80-100); Mean Platelet Volume 9.6 fL (9.1-12.4); NEUTROPHILS ABSOLUTE AUTO 6.57 K/mm3 (1.96-9.15); NEUTROPHILS PERCENT AUTO 66 % (41-73); Platelet Count 269 K/mm3 (150-400); RDW Coefficient Variation 12.1 % (11.7-14.2); RDW Standard Deviation 40.5 fL (35.1-46.3); Red Blood Cell Count 3.65 M/mm3 (4.30-5.90); White Blood Cell Count 9.93 K/mm3 (4.00-11.30)
[2024-08-21] MEDS ORDERED: HydrALAZINE HCl 20 MG / ML 1ML Vial IV ONE (04:40)
[2024-08-21 04:56] LABS: Magnesium, Blood 1.9 mg/dL (1.6-2.4)
[2024-08-21 04:57] LABS: Albumin, Blood 3.4 g/dL (3.4-5.0); Albumin/Globulin Ratio 0.9 (0.8-1.8); Bilirubin, Total 0.9 mg/dL (0.1-1.0); Bun/Creatinine Ratio 27.6 (12.0-20.0); Creatinine, Blood 1.16 mg/dL (0.60-1.20); Globulin, Blood 3.9 g/dL (2.2-4.0); Potassium, Blood 3.9 mmol/L (3.5-5.5); Total Protein, Blood 7.3 g/dL (6.4-8.2)
--- NOTE | 2024-08-21 06:44 | NUR ---
PT HAS REMAINED INDEPENDENT IN BED AND IN ROOM. HAS BEEN ABLE TO GET UP TO USE TOILET WITHOUT ASSIST. HAS BEEN MEDICATED ONCE WITH ZOFRAN FOR NAUSEA AND OXYCODONE FOR COMPLAINTS OF ABDOMINAL PAIN. DID HAVE ONE DOSE OF FENTANYL BEFORE MED HAD BEEN DISCONTINUED. WILL CONTINUE TO MONITOR PT, AND WILL REPORT OFF TO ONCOMING RN.
--- NOTE | 2024-08-21 08:30 | NUR ---
Kinney of care: Resting in bed, alert & oriented, does complain of chronic pain of a 7 for which he has just been medicated by production supervisor off shift RN. Vital signs are stable & he is on room air. Overnight he did have some elevated blood pressures which were treated with prn hydralazine for SBP > 180. Orders to transfer out of ICU today. Will continue to monitor.
[2024-08-21] MEDS ORDERED: Losartan Potassium 50 MG Tab PO SCH (09:00)
--- NOTE | 2024-08-21 09:54 | NUR ---
am note patient transfered over from icu approx 0915. patient vital signs stable. medical no tele. patient is alert and oriented x4. neuro is intact. patient reports pain at 7 on numeric pain scale, and acceptable pain level is at 3/4. patient unable to get pain medication at this time, and offered non pharmocoligcal methods and patient refused. this rn will bring in pain medication when patient can have it next. denies chest pain/pressure. see shift assessment for further detials.
[2024-08-21] MEDS ORDERED: METO50 PO (13:46)
[2024-08-21] MEDS ORDERED: LIQUICAL PLUS480 ML PO (13:48)
--- NOTE | 2024-08-21 14:55 | NUR ---
Discharge Instructions VSS. Pt and spouse educated on discharge instructions, follow up appointments and prescriptions. Prescriptions faxed to [facility] per patient request. Pt left via wheelchair at 1430.
== END 2024-08-21 14:30 | disposition home or self-care (01) | DRG 392 ==
LOC: ER 19:22 → ERHOLD 19:23 → ICUE 19:23 → EDBEDREQTM 08-18 02:09 → EDBEDREQSVC 08-18 02:09 → EDBEDREQ 08-18 02:09 → ICUE 08-18 03:30 → PCU 08-21 09:24
PROVIDERS: Emergency Medicine; Family Medicine; ADMIT Internal Medicine
DX: R11.2 Nausea with vomiting, unspecified (principal); E87.20 Acidosis, unspecified; E10.43 Type 1 diabetes mellitus with diabetic autonomic (poly)neuropathy; K52.9 Noninfective gastroenteritis and colitis, unspecified; I10 Essential (primary) hypertension; K31.84 Gastroparesis; E83.39 Other disorders of phosphorus metabolism; Z96.41 Presence of insulin pump (external) (internal); E83.42 Hypomagnesemia; E86.0 Dehydration; G47.00 Insomnia, unspecified; G89.29 Other chronic pain; R59.0 Localized enlarged lymph nodes; K21.9 Gastro-esophageal reflux disease without esophagitis; E10.65 Type 1 diabetes mellitus with hyperglycemia; Z95.1 Presence of aortocoronary bypass graft; Z79.899 Other long term (current) drug therapy; Z88.5 Allergy status to narcotic agent
CPT/HCPCS: 74177; 80048; 80053; 82010; 82803; 82947; 83036; 83690; 83735; 83880; 84100; 85025; 93005; 93010; 96365; 96368; 96374-59; 96375; 96376; 99285-25; A9270; C1751; G0378; J0360; J1650; J1815; J2060; J2270; J2405; J2470; J2765; J3010; J3475; J3480; J7030; J7050; J7060; J7070; Q9967

== ENCOUNTER → 2024-09-02 | Outpatient (CLI) | payer MEDICARE, OTHER ==
[~2024-09-02] MED LIST changes: +LIQUICAL PLUS480 ML PO; +METO10 PO; +METO50 PO
[2024-09-02 16:46] LABS: Microalb/Creat Ratio UR, Rand 108.85 mg/g (0.000-30.000)
== END | disposition home or self-care (01) ==
LOC: LAB 14:54 → LAB SHORT 14:54
PROVIDERS: Family Medicine
DX: E10.65 Type 1 diabetes mellitus with hyperglycemia (principal); E10.69 Type 1 diabetes mellitus with other specified complication; E10.29 Type 1 diabetes mellitus with other diabetic kidney complication; E10.618 Type 1 diabetes mellitus with other diabetic arthropathy; E10.52 Type 1 diabetes mellitus with diabetic peripheral angiopathy with gangrene; E10.621 Type 1 diabetes mellitus with foot ulcer; L97.509 Non-pressure chronic ulcer of other part of unspecified foot with unspecified severity
CPT/HCPCS: 82043; 82570

== ENCOUNTER → 2024-11-09 | Outpatient (CLI) | payer MEDICARE, OTHER ==
[2024-11-09 11:32] LABS: BASOPHILS ABSOLUTE AUTO 0.08 K/mm3 (0.00-0.23); BASOPHILS PERCENT AUTO 2 % (0-2); EOSINOPHILS ABSOLUTE AUTO 0.39 K/mm3 (0.00-0.68); EOSINOPHILS PERCENT AUTO 7 % (0-6); Hematocrit 37.7 % (37.0-53.0); Hemoglobin 12.5 g/dL (13.5-17.5); IMMATURE GRAN ABSOLUTE AUTO 0.01 K/mm3 (0.00-0.10); IMMATURE GRAN PERCENT AUTO 0 % (0-1); LYMPHOCYTES ABSOLUTE AUTO 1.21 K/mm3 (0.84-5.20); LYMPHOCYTES PERCENT AUTO 22 % (21-46); MONOCYTES ABSOLUTE AUTO 0.49 K/mm3 (0.16-1.47); MONOCYTES PERCENT AUTO 9 % (4-13); Mean Corpuscular HGB 31.3 pg (26.0-34.0); Mean Corpuscular HGB Conc 33.2 g/dL (31.5-36.5); Mean Corpuscular Volume 94 fL (80-100); Mean Platelet Volume 8.8 fL (9.1-12.4); NEUTROPHILS ABSOLUTE AUTO 3.24 K/mm3 (1.96-9.15); NEUTROPHILS PERCENT AUTO 60 % (41-73); Platelet Count 253 K/mm3 (150-400); RDW Coefficient Variation 13.3 % (11.7-14.2); RDW Standard Deviation 46.6 fL (35.1-46.3); White Blood Cell Count 5.42 K/mm3 (4.00-11.30)
[2024-11-09 11:56] LABS: Albumin, Blood 3.9 g/dL (3.4-5.0); Bilirubin, Total 0.7 mg/dL (0.1-1.0); Bun/Creatinine Ratio 8.8 (12.0-20.0); Calcium, Blood 9.2 mg/dL (8.5-10.1); Creatinine, Blood 1.47 mg/dL (0.60-1.20); Thyroid Stimulating Hormone 1.163 uIU/mL (0.360-4.800); Total Protein, Blood 7.9 g/dL (6.4-8.2)
== END ==
LOC: LAB 11:27 → LAB SHORT 11:27
PROVIDERS: Physician Assistant
DX: E10.9 Type 1 diabetes mellitus without complications (principal); R53.83 Other fatigue
CPT/HCPCS: 80053; 83036; 84443; 85025